=== PATIENT | female | born 1960 | race Caucasian/White ===

== ENCOUNTER 2019-12-13 13:38 | Emergency (ER) | payer OTHER, SELFPAY ==
[2019-12-13 13:52] VITALS: BP 142/88; PULSE 73; RESP 20; TEMP 36.6; O2SAT 100
--- NOTE | 2019-12-13 14:09 | ED.DENTAL ---
HPI - Dental/Oral General Chief complaint: Dental/Oral Stated complaint: tooth fracture Time Seen by Provider: 12/13/19 13:51 Source: patient and RN notes reviewed Mode of arrival: ambulatory Limitations: no limitations History of Present Illness HPI Narrative: Patient presents today planing of mild pain to the right lower gumline. States her crown fell off yesterday. She has an appointment with a dentist in 3 days. Reports Tylenol and ibuprofen are providing some relief of symptoms. Denies shortness of breath, fever, difficulty swallowing. Affected tooth had a previous root canal and crown placed 20 years ago MD Complaint: tooth pain Related Data Home Medications Medication Instructions Recorded Confirmed apixaban [Eliquis] 5 mg PO BID 12/13/19 12/13/19 diltiazem HCl [Cardizem] 120 mg DAILY 12/13/19 12/13/19 metoprolol tartrate 12/13/19 Allergies Allergy/AdvReac Type Severity Reaction Status Date / Time Penicillins Allergy Mild Rash Verified 12/13/19 13:56 ciprofloxacin [From Cipro] Allergy Rash Verified 12/13/19 13:56 Review of Systems Review of Systems: Narrative: CONSTITUTIONAL: Denies body aches, fever, chills, or sweats. EYES: Denies visual changes, redness, or discharge. ENT: Denies rhinorrhea, congestion, sore throat, or otalgia. + Tooth pain CARDIOVASCULAR: Denies chest pain, palpitations, or edema. RESPIRATORY: Denies cough or dyspnea. GASTROINTESTINAL: Denies abdominal pain, nausea, vomiting, or diarrhea. GENITOURINARY: Denies dysuria or hematuria. SKIN: Denies rash, itching, or wounds. MUSCULOSKELETAL: Denies back pain, joint pain, or myalgia. NEUROLOGIC: Denies headache, numbness, tingling, or weakness. PSYCH: Denies depression or anxiety. [facility] Past Medical History Medical History (Updated 12/13/19 @ 14:43 by Nelida Lovett, OPERATING ROOM TECH, ) A-fib Graves disease Social History Social History Gender identity (if verbalized by the patient): Female Comments At time of signature, I have reviewed and agree with nursing past medical, surgical, social and family history unless otherwise noted. Please see nursing chart for further information. There is no relevant family history pertinent to the presenting complaint Exam Narrative: Exam Narrative: GENERAL: Well-appearing, well-nourished, and in no acute distress. HEAD: Normocephalic, atraumatic. EYES: EOMI. No redness or drainage. Conjunctivae normal. ENT: Mucous membranes pink and moist. Nares clear. No rhinorrhea. Throat normal. Uvula midline. [place] missing from tooth #29. [place] seems to be intact. Tooth underneath is intact with mild surrounding edema and erythema of the gumline. No obvious periapical abscess. No trismus or sublingual tenderness. NECK: Normal AROM. Supple. No lymphadenopathy. CHEST: No respiratory distress. EXTREMITIES: Normal range of motion. No edema. SKIN: Warm, dry, no rash. Capillary refill normal. Normal skin turgor. NEURO: No focal deficits. Alert and oriented x3. Gait steady. PSYCH: Normal affect. No signs of depression or anxiety. Course Vital Signs Vital signs: Vital Signs Temperature 97.8 F 12/13/19 13:52 Pulse Rate 73 12/13/19 13:52 Respiratory Rate 12/13/19 13:52 Blood Pressure 142/88 H 12/13/19 13:52 Pulse Oximetry 100 12/13/19 13:52 Temperature 97.8 F 12/13/19 13:52 Pulse Rate 73 12/13/19 13:52 Respiratory Rate 12/13/19 13:52 Blood Pressure 142/88 H 12/13/19 13:52 Pulse Oximetry 100 12/13/19 13:52 Reviewed. Pt has been instructed to follow up with her PCP regarding her elevated blood pressure today. MDM - Dental/Oral Differential Diagnosis Differential diagnosis: Likely gingival abscess, dental caries, toothache, dental abscess and fracture of tooth Critical Care Time Critical Care Time Critical Care Time: No Discharge Plan Discharge Clinical Impression: Infected dental caries Patient Disposition: Home, Self-Care Condition: Sta
== END 2019-12-13 14:27 | disposition home or self-care (01) ==
PROVIDERS: Emergency Provider Nurse Practitioner; PCP Nurse Practitioner Psychiatric/Mental Health
DX: K02.9 Dental caries, unspecified (principal); I48.91 Unspecified atrial fibrillation; E05.00 Thyrotoxicosis with diffuse goiter without thyrotoxic crisis or storm; E78.00 Pure hypercholesterolemia, unspecified; E03.9 Hypothyroidism, unspecified
CPT/HCPCS: 99203; G0463

== ENCOUNTER 2020-08-13 16:06 | Outpatient (CLI) | payer OTHER, SELFPAY ==
--- NOTE | ~2020-08-13 | US_ITS ---
EXAMINATION: US thyroid DATE: 08/13/2020 17:07 INDICATION: Graves' disease. TECHNIQUE: Multiple ultrasound images of the thyroid were obtained. COMPARISON: None. FINDINGS: The right thyroid lobe measures 6.4 x 2.6 x 2.1 cm. The left thyroid lobe measures 5.6 x 2.0 x 2.2 c m. The thyroid demonstrates heterogeneous echogenicity and increased vascularity. In the left thyroid lobe, there is a 11 mm solid, very hypoechoic, oytxa-qjrq-ebqq nodule with smooth margin without ech ogenic foci (TI-RADS TR4). IMPRESSION: 1. Heterogeneous, hypervascular thyroid, consistent Graves' disease. 2. 11 mm left thyroid nodule. By report, the patient has a history of benign biopsy. Reviewed, dictated and finalized at location A. IMPRESSION: 1. Heterogeneous, hypervascular thyroid, consistent Graves' disease. 2. 11 mm left thyroid nodule. By report, the patient has a history of benign bi opsy.
== END 2020-08-13 16:07 | disposition home or self-care (01) ==
LOC: ANHIMG 16:07
PROVIDERS: PCP Nurse Practitioner Psychiatric/Mental Health
DX: E05.00 Thyrotoxicosis with diffuse goiter without thyrotoxic crisis or storm (principal); E04.1 Nontoxic single thyroid nodule
CPT/HCPCS: 76536

== ENCOUNTER 2021-03-31 12:20 | Outpatient (CLI) | payer OTHER, SELFPAY ==
--- NOTE | ~2021-03-31 | US_ITS ---
EXAMINATION: US thyroid DATE: 03/31/2021 13:02 INDICATION: Nontoxic multinodular goiter. Graves' disease. TECHNIQUE: Multiple ultrasound images of the thyroid were obtained. COMPARISON: 08/23/2020 FINDINGS: The right thyroid lobe measures 5.7 x 1.8 x 2.0 cm. The left thyroid lobe measures 5.4 x 1.7 x 2.0 c m. Thyroid isthmus measures 6 mm in thickness. There is heterogeneous echogenicity with coarsened ech otexture and increased vascular flow on color Doppler throughout the thyroid consistent with given hi story of Graves' disease. No significant change in a 11 mm solid very hypoechoic wider than tall nodu le with smooth margins and without echogenic foci (TI-RADS 4, moderately suspicious , FNA if >=1.5 cm , annual followup is >=1 cm). IMPRESSION: 1. Heterogeneous hypervascular thyroid consistent with Graves' disease. 2. Unchanged 11 mm TI RADS 4 left thyroid nodule for which annual follow-up would be recommended. Reviewed, dictated and finalized at location . [employer] IMPRESSION: 1. Heterogeneous hypervascular thyroid consistent with Graves' disease. 2. Unchanged 11 mm TI RADS 4 left thyroid nodule for which annual follow-up wou ld be recommended.
== END 2021-03-31 12:21 | disposition home or self-care (01) ==
PROVIDERS: Visit Provider Internal Medicine Endocrinology, Diabetes & Metabolism
DX: E04.2 Nontoxic multinodular goiter (principal)
CPT/HCPCS: 76536

== ENCOUNTER 2021-04-05 07:40 | Outpatient (CLI) | payer OTHER, SELFPAY ==
--- NOTE | 2021-04-13 17:43 | WPDHOMESLEEP ---
Sleep Study - Home Unattended Date of Study: 04/05/21 Ordering Provider: Nelida Reyes, Interpreting Provider: Amirah Ledezma MD Home Sleep Study Type: Watch PAT Height: 1.65 m Weight: 108.409 kg Body Mass Index: 39.7 Neck Circumference (inches): 16.5 Corona: 15 Reason for Sleep Study Fatigue, tired all the time, excessive daytime sleepiness Sleep History Kalyani Hanna is a 60 year old female with 45 years of excessive daytime sleepiness and snoring. She is tired all the time. She does not awaken from sleep feeling short of breath or awaken at night with heartburn, belching or coughing. She constantly snores loudly. She constantly has trouble sleeping with a cold. She does not wake up gasping for breath at night. She does not have breathing problems at night observed by others. She does not sweat excessively at night or notice her heart pounding irregularly at night. She frequently falls asleep during the day and this constantly happens involuntarily. She rarely falls asleep driving. She does not have loss of muscle tone with strong emotion. She rarely has daytime difficulties due to excessive sleepiness. She frequently feels paralyzed on waking or falling asleep and frequently has vivid dreamlike scenes on awakening or falling asleep. She does not feel afraid to go to sleep. She occasionally has nightmares. She rarely remembers her dreams. She does not have racing thoughts. She occasionally feels sad, depressed and anxious. She occasionally has muscular tension. She rarely notices parts of her body jerking and she rarely kicks at night. She rarely has crawling and aching feelings in her legs. She does not have any kind of leg pain at night. She does not have morning jaw pain and does not grind her teeth during sleep. She occasionally is bothered by pain during the day. She is not awakened by pain at night. She occasionally wakes up feeling stiff in the morning. She does not wake up with sore achy muscles. She occasionally wakes up with pain in the neck and spine. She has headaches and fatigue. Normal bedtime is 10:00 p.m. and she typically wakes up once during the night for 15 minutes. She wakes the morning at 6:00 a.m.. Her weekend schedule is the same. She estimates getting 6-7 hours of sleep at night. She takes naps in the afternoon or evening. A short nap is not refreshing. She feels better in the evening compared to the morning. Habits: Never smoked tobacco. She drinks caffeine daily. Rare alcohol. No recreational drugs. [facility] Past Medical History Medical History (Updated 04/13/21 @ 17:56 by Amirah Ledezma MD) A-fib Anxiety and depression Diabetes Graves disease Hypertension Kidney stones Seasonal allergies Surgical History Surgical History (Updated 04/13/21 @ 17:50 by Amirah Ledezma MD) History of tonsillectomy History of total hysterectomy Status post rhinoplasty Social History Social History (Updated 04/13/21 @ 17:50 by Amirah Ledezma MD) Smoking status: Never smoker Living arrangements: with family Occupation/Education: occupation Additional occupation/education comments: RN Gender identity (if verbalized by the patient): Female Medications Home Medications Medication Instructions Recorded Confirmed Type apixaban [Eliquis] 5 mg PO BID 12/13/19 12/13/19 History clindamycin HCl 300 mg PO Q6H 10 Days #40 cap 12/13/19 Rx diltiazem HCl [Cardizem] 120 mg DAILY 12/13/19 12/13/19 History metoprolol tartrate 12/13/19 History Sleep Procedure The sleep study was completed using LaunchCytePAT a technically adequate device with seven channels: peripheral arterial tone, actigraphy, body position, snore, respiratory movement, pulse oximetry, sleep staging, and heart rate. Prior to using the device, the patient received verbal and written instructions for its application and was provided with the help desk phone number for additional telephonic instruction with
[2021-04-13 18:00] VITALS: BMI 39.7
== END 2021-04-06 09:59 | disposition home or self-care (01) ==
LOC: ANHCSM 07:40
PROVIDERS: Visit Provider Internal Medicine Endocrinology, Diabetes & Metabolism
DX: G47.30 Sleep apnea, unspecified (principal); G47.33 Obstructive sleep apnea (adult) (pediatric)
CPT/HCPCS: 95800

== ENCOUNTER 2021-04-18 16:40 | Emergency (ER) | payer OTHER, SELFPAY ==
--- NOTE | ~2021-04-18 | XR_ITS ---
EXAMINATION: XR chest 2V DATE: 04/18/2021 18:17 INDICATION: Cough and shortness of breath, COVID 19 positive TECHNIQUE: PA and lateral views of the chest are obtained. COMPARISON: 10/15/2019 FINDINGS: There is unchanged mild atelectasis of the lower lobes. No acute airspace opacities are benny ntified. There is no pleural effusion or pneumothorax. The cardiomediastinal silhouette is normal. Th ere is mild thoracic spondylosis. IMPRESSION: 1. No acute cardiopulmonary abnormality. Reviewed, dictated and finalized at location F. R WORKER
[2021-04-18 17:01] VITALS: BP 134/78; PULSE 59; RESP 16; TEMP 36.8; O2SAT 100
--- NOTE | 2021-04-18 18:14 | ED.URI ---
HPI - URI/Sore Throat General Chief Complaint: Upper Respiratory Infection Stated Complaint: cough/ear bleeding Source: patient Mode of arrival: ambulatory Limitations: no limitations History of Present Illness HPI Narrative: 60 y/o female presented for c/o right ear pain and chest tightness with coughing. She tested positive for covid last week and has remained quarantined. Sob with exertion, denies wheezing fever or chills. Endorses hx cerumen impaction, has been using peroxide and using otoscope with camera for evaluation. Notes yesterday reddened 'ulcer' appearing area that increased in size today. Endorses mild pain to the ear, denies drainage or decreased hearing. Related Data Home Medications Medication Instructions Recorded Confirmed apixaban [Eliquis] 5 mg PO BID 12/13/19 12/13/19 diltiazem HCl [Cardizem] 120 mg DAILY 12/13/19 12/13/19 metoprolol tartrate 12/13/19 Allergies Allergy/AdvReac Type Severity Reaction Status Date / Time Penicillins Allergy Mild Rash Verified 12/13/19 13:56 ciprofloxacin [From Cipro] Allergy Rash Verified 12/13/19 13:56 Review of Systems Review of Systems: CONSTITUTIONAL: Denies malaise, chills, sweats, fever. EYES: Denies visual changes, redness, or discharge. ENT: Reports rhinorrhea, congestion, sinus pain, otalgia and sore throat. CARDIOVASCULAR: Denies chest pain, palpitations, or edema. RESPIRATORY: Reports cough, post nasal drainage. Denies dyspnea. GASTROINTESTINAL: Denies abdominal pain, nausea, vomiting, diarrhea SKIN: Denies rash or itching. MUSCULOSKELETAL: Denies myalgia. NEUROLOGIC: Denies headache. [facility] Past Medical History Medical History A-fib Anxiety and depression Diabetes Graves disease Hypertension Kidney stones Seasonal allergies Surgical History Surgical History History of tonsillectomy History of total hysterectomy Status post rhinoplasty Social History Social History Smoking status: Never smoker Additional occupation/education comments: RN Gender identity (if verbalized by the patient): Female Comments At time of signature, I have reviewed and agree with nursing past medical, surgical, social and family history unless otherwise noted. Please see nursing chart for further information. There is no relevant family history pertinent to the presenting complaint Exam Narrative: GENERAL: Ill-appearing, no acute distress. HEAD: Normocephalic EYES: PERRLA, conjunctivae clear ENT: Mucous membranes moist. bilat TM pearly bal with dull light reflex; no tragal tenderness. Right canal with erythema and white material medially. Oropharynx erythematous without lesions. NECK: Supple. No lymphadenopathy CHEST: Clear to auscultation, breath sounds equal. No wheezing, rhonchi, rales, or stridor. No respiratory distress, speaks in full sentences. HEART: Regular rate and rhythm. No murmur heard. SKIN: Warm, dry, no rash. NEURO: Alert and oriented x3. PSYCH: Normal mood and affect Course Course Emergency Course: Patient is aware of diagnosis, understands and agrees to treatment plan. Anticipatory guidance given. Patient agrees to follow-up as directed and is aware of reasons to seek care at the emergency department. Portions of this record may have been created with voice recognition software Level of Care: Express Care Visit Vital Signs Vital signs: Vital Signs Temperature 98.3 F 04/18/21 17:01 Pulse Rate 59 L 04/18/21 17:01 Respiratory Rate 16 04/18/21 17:01 Blood Pressure 134/78 04/18/21 17:01 Pulse Oximetry 100 04/18/21 17:01 Temperature 98.3 F 04/18/21 17:01 Pulse Rate 59 L 04/18/21 17:01 Respiratory Rate 16 04/18/21 17:01 Blood Pressure 134/78 04/18/21 17:01 Pulse Oximetry 100 04/18/21 17:01 reviewed MDM - URI/Sore Throat Diff
== END 2021-04-18 18:35 | disposition home or self-care (01) ==
PROVIDERS: Emergency Provider Nurse Practitioner Family
DX: H92.01 Otalgia, right ear (principal); M94.0 Chondrocostal junction syndrome [Tietze]; I48.91 Unspecified atrial fibrillation; E11.9 Type 2 diabetes mellitus without complications; I10 Essential (primary) hypertension; E05.00 Thyrotoxicosis with diffuse goiter without thyrotoxic crisis or storm; Z90.710 Acquired absence of both cervix and uterus; F41.9 Anxiety disorder, unspecified; F32.9 Major depressive disorder, single episode, unspecified
CPT/HCPCS: 71046; 99213; G0463

== ENCOUNTER 2021-07-11 15:21 | Outpatient (CLI) | payer OTHER, SELFPAY ==
[2021-07-11 15:55] LABS: Cholesterol 236 mg/dL (0-200); HDL Direct 40 mg/dL; Triglycerides 233 mg/dL (<150)
[2021-07-11 16:05] LABS: LDL Cholesterol Direct 150 mg/dL
[2021-07-11 16:10] LABS: Hemoglobin A1C 5.4 % (<5.7)
[2021-07-11 17:09] LABS: Folic Acid > 20.0 ng/mL (2.76->20)
[2021-07-13 03:34] LABS: Insulin Level Total 9.5 uIU/mL (<=19.6); Thyroid Peroxidase Antibodies 11 IU/mL (<9)
[2021-07-14 06:06] LABS: Triiodothyronine T3 Free 3.2 pg/mL (2.3-4.2)
== END 2021-07-11 15:22 | disposition home or self-care (01) ==
LOC: ANHLAB 15:24
PROVIDERS: Visit Provider Internal Medicine Endocrinology, Diabetes & Metabolism
DX: E06.3 Autoimmune thyroiditis (principal); R73.01 Impaired fasting glucose
CPT/HCPCS: 36415; 80061; 82607; 82746; 83036; 83525; 84439; 84443; 84481; 86376

== ENCOUNTER 2021-08-18 15:54 | Emergency (ER) | payer OTHER, SELFPAY ==
--- NOTE | ~2021-08-18 | CT_ITS ---
EXAMINATION: CT soft tissue neck w con DATE: 08/18/2021 18:53 INDICATION: Left neck swelling and pain. TECHNIQUE: Computed tomography (CT) of the neck was performed with 75 mL Omnipaque 300 intravenous co ntrast. Automated exposure control and iterative reconstruction technique were employed. The dose-sae gth product was 595.87 mGy-cm. COMPARISON: Thyroid ultrasound 03/31/2021 FINDINGS: There is plaque in the proximal internal carotid arteries with less than 50% stenosis relat ion to normal distal artery lumen diameters. There is a 14 x 17 mm left high internal jugular chain l ymph node with surrounding fat stranding. There is moderate cervical spondylosis. IMPRESSION: 1. Mildly enlarged high left internal jugular chain lymph node, which may be reactive. Fat stranding in this area suggests inflammation. Reviewed, dictated and finalized at location A. IMPRESSION: 1. Mildly enlarged high left internal jugular chain lymph node, which may be re active. Fat stranding in this area suggests inflammation.
[2021-08-18 15:55] VITALS: BP 140/77; PULSE 96; RESP 17; TEMP 36.6; O2SAT 100
--- NOTE | 2021-08-18 16:56 | ED.GENADULT ---
HPI - General Adult General Chief complaint: Unspecified Stated complaint: swollen neck Time Seen by Provider: 08/18/21 16:56 Source: patient Mode of arrival: ambulatory Limitations: no limitations History of Present Illness HPI narrative: Patient is a 60-year-old female who presents the ED with report of left-sided neck swelling. Patient reports a history of Graves' disease, thyroiditis in the past. She has a known left thyroid nodule that was last recorded to be 11 mm in March via ultrasound. She has been on several different thyroid medications in the past but is now currently only on an ioeb-xok-jnbhgef thyroid supplement. She had lab work done at the beginning of July at which point her TSH was 2.06. She does see a portable grinding machine operator, Ny Reyes in [place]. Over the past 7 days, she has had swelling in her left sided neck, below her left-sided jaw. She states the swelling began directly under her jawline has since radiated to her neck. She denies any difficulty breathing or swallowing but does states she can feel the swelling more when she lays flat, so she has been sleeping in a recliner for the past couple nights. She contacted her primary care doctor and portable grinding machine operator about this, both of whom told her to come to the ED for imaging. Patient notes the swelling is tender to the touch. She also reports having mild congestion and sinus drainage today. Denies any fever, chills, cough, nausea, vomiting, sore throat, ear pain, dental pain. Related Data Allergies Allergy/AdvReac Type Severity Reaction Status Date / Time ciprofloxacin [From Cipro] Allergy Itching Verified 08/18/21 15:58 Penicillins Allergy Rash Verified 08/18/21 15:58 Gigzifx-KGJ-FyW Reductase Allergy Muscle Pain Verified 08/18/21 15:58 Inhibitor Review of Systems Review of Systems: CONSTITUTIONAL: Denies fever, chills. ENT: Reports congestion, sinus drainage. Denies rhinorrhea, sore throat, otalgia, dysphagia, dentalgia. CARDIOVASCULAR: Denies chest pain. RESPIRATORY: Denies cough or dyspnea. GASTROINTESTINAL: Denies nausea, vomiting. SKIN: Reports tender swelling to left-sided neck and jaw. Denies rash or itching. All systems reviewed & are unremarkable except as noted in HPI and below PMFSH Past Medical History Medical History (Updated 08/19/21 @ 00:00 by Background Daemon) Anxiety Depression Graves disease History of thyroiditis Hypercholesterolemia Hypertension Multinodular goiter (nontoxic) Surgical History Surgical History (Updated 08/18/21 @ 17:36 by Ny Reynoso PA-C) History of facial surgery History of hysterectomy History of thyroid surgery Social History Social History (Updated 08/18/21 @ 17:36 by Ny Reynoso PA-C) Smoking status: Never smoker Exam Narrative: GENERAL: Well appearing, well-nourished, non-toxic, in no acute distress. HEAD: Normocephalic, atraumatic. NOSE: Normal, no drainage EARS: TMS clear, with good light reflex. No erythema or bulging bilaterally. THROAT: Pharynx clear, no exudate or erythema. MMs moist. NECK: Supple. L sided submandibular swelling, extending down anterior cervical region, tender to palpation. RESPIRATORY: Airway patent, respirations nonlabored. Clear to auscultation bilaterally, no rales, rhonchi, wheezing. CARDIOVASCULAR: Regular rate and rhythm without murmurs, rubs, or gallops. Radial pulses 2+ and equal bilaterally. MUSCULOSKELETAL: Moves all extremities. Strength/ROM intact without gross deformities. SKIN: Warm, dry, normal color. No rashes. NEURO: A&O X3. Speech clear. Cranial nerves II-XII grossly intact. Steady gait. No ataxic movements. PSYCHIATRIC: Appropriate mood and affect. Normal interaction. Course Vital Signs Vital signs: Vital Signs Temperature 97.8 F 08/18/21 15:55 Pulse Rate 96 08/18/21 15:55 Respiratory Rate 17 08/18/21 15:55 Blood Pressure 140/77 08/18/21 15:55 Pulse Oximetry 100 08/18/21 15:55 Temperature 97.8 F 08/18
[2021-08-18 17:42] LABS: Basophils Absolute Auto 0.1 K/mm3 (0.0-0.1); Basophils Percent Auto 0.7 % (0.2-1.2); Eosinophils Absolute Auto 0.2 K/mm3 (0-0.3); Eosinophils Percent Auto 1.6 % (0-4.4); Hematocrit 36.8 % (37.0-47.0); Hemoglobin 12.2 g/dL (12.0-15.0); Immature Granulocyte Absolute 0.12 K/mm3 (0.00-0.031); Immature Granulocyte Percent A 1.3 % (0-0.5); Lymphocytes Absolute Auto 1.67 K/mm3 (0.9-3.2); Lymphocytes Percent Auto 18.3 % (18.3-44.2); Mean Corpuscular HGB Conc 33.2 g/dl (32-36); Mean Corpuscular Hemoglobin 31.7 pg (26-34); Mean Corpuscular Volume 95.6 fl (80-100); Mean Platelet Volume 8.8 fl (7.4-10.4); Monocytes Absolute Auto 0.9 K/mm3 (0.1-0.6); Monocytes Percent Auto 9.3 % (2.6-8.5); Neutrophils Absolute Auto 6.3 K/mm3 (1.3-6.7); Neutrophils Percent Auto 68.8 % (45.5-73.1); Platelet Count Result 278 k/mm3 (150-375); Red Blood Count 3.85 M/mm3 (4.2-5.4); Red Cell Distribution Width 12.2 % (11.5-14.5); White Blood Count 9.1 K/mm3 (4.5-10.0)
[2021-08-18 17:51] LABS: Alanine Aminotransferase 28 U/L (6-35); Albumin Level 4.5 g/dL (3.5-5.1); Alkaline Phosphatase 74 U/L (38-126); Anion Gap 8 mmol/L (8-16); Aspartate Amino Transferase 39 U/L (14-36); Bilirubin,Total 0.2 mg/dL (0.2-1.3); Blood Urea Nitrogen 12 mg/dL (7-17); Calcium 9.6 mg/dL (8.4-10.2); Carbon Dioxide 29 mmol/L (22-30); Chloride 102 mmol/L (98-107); Estimated CRCL calculation 79 ml/min; Estimated Glomerular Filt Rate > 60; Glucose 92 mg/dL (65-110); Potassium 3.6 mmol/L (3.4-5.0); Sodium 139 mmol/L (137-145)
[2021-08-18 19:02] LABS: Free T4 Free Thyroxine 1.54 ng/mL (0.78-2.19)
[2021-08-18] MEDS: KETOROLAC 30 MG/ML VIAL (*BKC) IV PUSH (19:33)
[2021-08-18 19:56] VITALS: RESP 16; O2SAT 98
== END 2021-08-18 19:56 | disposition home or self-care (01) ==
PROVIDERS: Physician Assistant; Emergency Provider Emergency Medicine
DX: R59.1 Generalized enlarged lymph nodes (principal); I10 Essential (primary) hypertension
CPT/HCPCS: 36415; 70491; 80053; 84439; 84443; 85025; 96374; 99284; J1885; Q9967

== ENCOUNTER 2021-11-29 01:12 | Day surgery (SDC) | payer OTHER, SELFPAY ==
[2021-11-11 11:54] VITALS: BMI 38.3
[2021-11-29 07:14] VITALS: BP 139/75; PULSE 83; RESP 18; TEMP 36.6; O2SAT 100; BMI 37.2
[2021-11-29 07:33] LABS: Glucose Point of Care 109 mg/dl (65-105)
[2021-11-29] MEDS: LACTATED RINGERS 1,000 ML 150 ML IV CONT (07:33)
--- NOTE | 2021-11-29 08:05 | WPDANESEPPF ---
Anes - Initial Pre Proc Eval Procedure: Operation Date: 11/29/21 08:45 Proposed Procedures p Screening Colonoscopy - Eric Mueller MD Date/Time: 11/29/21 08:05 Surgeon: Eric Mueller MD Pre Op Diagnosis: neoplasm screening Patient Data Age: 61 Gender: F Height: 1.65 m Weight: 101.5 kg Last Vital Signs Temp 97.8 F 11/29/21 07:14 Pulse 83 11/29/21 07:14 Resp 18 11/29/21 07:14 BP 139/75 11/29/21 07:14 Pulse Ox 100 11/29/21 07:14 O2 Del Method Room Air 11/29/21 07:14 Allergies Allergy/AdvReac Type Severity Reaction Status Date / Time ciprofloxacin [From Cipro] Allergy Itching Verified 11/29/21 07:17 Penicillins Allergy Rash Verified 11/29/21 07:17 Jqukpwn-[id number]-TcL Reductase Allergy Muscle Pain Verified 11/29/21 07:17 Inhibitor Home Medications Medication Instructions Recorded Confirmed Type apixaban 5 mg tablet (Eliquis) 5 mg PO BID 04/18/21 11/29/21 History bupropion HCl 200 mg tablet,12 hr 200 mg PO BID 04/18/21 11/29/21 History sustained-release diltiazem HCl 120 mg 120 mg PO DAILY 04/18/21 11/29/21 History capsule,extended release 24 hr, controlled (DILT-XR) fluoxetine 20 mg capsule 40 mg PO DAILY 04/18/21 11/29/21 History metformin 500 mg tablet,extended 500 mg PO BID 04/18/21 11/29/21 History release 24 hr metoprolol succinate 50 mg 50 mg PO DAILY 04/18/21 11/29/21 History tablet,extended release 24 hr Laboratory Tests 11/29/21 07:31 POC Capillary Glucose 109 mg/dl H mg/dl (65-105) Patient hx anesthesia problems: none Family hx anesthesia problems: none Results Review: All pre-operative results and documents have been reviewed as part of the pre-operative evaluation. [facility] Past Medical History Medical History (Updated 08/19/21 @ 15:08 by Shahla Dumont) A-fib Anxiety Anxiety and depression Depression Diabetes Graves disease Graves disease History of thyroiditis Hypercholesterolemia Hypertension Hypertension Kidney stones Multinodular goiter (nontoxic) Seasonal allergies Surgical History Surgical History (Updated 08/19/21 @ 15:08 by Shahla Dumont) History of facial surgery History of hysterectomy History of thyroid surgery History of tonsillectomy History of total hysterectomy Status post rhinoplasty Social History Social History (System 08/19/21 @ 15:08 by Shahla Dumont) Smoking status: Never smoker Alcohol intake: current Drinks per week: 1 Substance use type: does not use Living arrangements: with family Additional occupation/education comments: RN Gender identity (if verbalized by the patient): Female Spiritual care concerns: No Anes - Eval Final PreProcedure Day of Procedure 11/29/21 08:05 Patient weight: obese Heart: regular rate and rhythm Lungs: clear to auscultation Airway: Mallampati scale class II Neurological: alert and oriented Last oral intake: >/= 8 hours ASA classification: III Emergent: no Anesthetic plan: proceed Anesthesia type and monitoring: general GIVS and standard monitoring Results Review: All pre-operative results and documents have been reviewed as part of the pre-operative evaluation. Informed Consent: The patient's anesthetic plan and its attendant risks and benefits were discussed with the patient/family/POA. Questions were solicited and answers provided to the satisfaction of the patient/family/POA.
--- NOTE | 2021-11-29 08:13 | PM.HPGS ---
History of Present Illness History of Present Illness Consent: Risks, benefits, and alternatives have been discussed and questions answered. Patient agrees to proceed with procedure. Chief complaint: neoplasm screening Narrative: Kalyani Hanna is a 61 year old female here for screening colonoscopy, last one 2015 Review of Systems Constitutional: Constitutional: Denies headache(s) and Denies weakness Eyes: Eyes: Denies blurry vision ENT: Reports Normal hearing present, Denies headache(s) and Denies neck pain Cardiovascular: Cardiovascular: Denies chest pain and Denies dyspnea Respiratory: Respiratory: Denies dyspnea Gastrointestinal: Gastrointestinal: Reports no additional gastrointestinal complaints Genitourinary: Genitourinary: Denies dysuria Musculoskeletal: Musculoskeletal: Denies neck pain Integumentary/Breasts: Skin/Breast: Denies dry skin Neurologic: Reports Normal hearing present, Denies headache(s) and Denies weakness Psychiatric: Psychiatric: Denies anxiety Endocrine: Endocrine: Denies change in body appearance Hematologic/Lymphatic: Hematologic/Lymphatic: Denies easy bleeding Allergic/Immunologic: Allergic/Immunologic: Denies urticaria PMFSH Past Medical History Medical History (Updated 11/29/21 @ 08:14 by Eric Mueller MD) A-fib Anxiety Anxiety and depression Colon cancer screening Depression Diabetes Graves disease Graves disease History of thyroiditis Hypercholesterolemia Hypertension Hypertension Kidney stones Multinodular goiter (nontoxic) Seasonal allergies Surgical History Surgical History (Updated 08/19/21 @ 15:08 by Shahla Dumont) History of facial surgery History of hysterectomy History of thyroid surgery History of tonsillectomy History of total hysterectomy Status post rhinoplasty Social History Social History (System 08/19/21 @ 15:08 by Shahla Dumont) Smoking status: Never smoker Alcohol intake: current Drinks per week: 1 Substance use type: does not use Living arrangements: with family Additional occupation/education comments: RN Gender identity (if verbalized by the patient): Female Spiritual care concerns: No Meds Home Medications and Allergies Home Medications Medication Instructions Recorded Confirmed Type apixaban 5 mg tablet (Eliquis) 5 mg PO BID 04/18/21 11/29/21 History bupropion HCl 200 mg tablet,12 hr 200 mg PO BID 04/18/21 11/29/21 History sustained-release diltiazem HCl 120 mg 120 mg PO DAILY 04/18/21 11/29/21 History capsule,extended release 24 hr, controlled (DILT-XR) fluoxetine 20 mg capsule 40 mg PO DAILY 04/18/21 11/29/21 History metformin 500 mg tablet,extended 500 mg PO BID 04/18/21 11/29/21 History release 24 hr metoprolol succinate 50 mg 50 mg PO DAILY 04/18/21 11/29/21 History tablet,extended release 24 hr Allergies Allergy/AdvReac Type Severity Reaction Status Date / Time ciprofloxacin [From Cipro] Allergy Itching Verified 11/29/21 07:17 Penicillins Allergy Rash Verified 11/29/21 07:17 Wbhexiy-VCB-KjG Reductase Allergy Muscle Pain Verified 11/29/21 07:17 Inhibitor Vital Signs Vital Signs - 24 hr 11/29/21 07:14 Temperature 97.8 F Pulse Rate 83 Respiratory Rate 18 Blood Pressure 139/75 Pulse Oximetry 100 Oxygen Delivery Room Air Exam Const: General: comfortable and no acute distress HENMT: General nose exam: Normal nares present Eyes: General: appearance normal, both eyes and all related structures Neck: Neck: no JVD Resp: Auscultation: clear to auscultation bilaterally Cardio: Rate: regular rate Rhythm: regular rhythm GI: Inspection: non-distended GI Palp: Yes Soft to palpation Skin: General skin exam: normal color Neuro: General: gait normal Speech: normal speech Extrem: General: normal to inspection Psych: Mental Status: mental status grossly normal Assessment and Plan Assessment and plan (1) Colon cancer scr
[2021-11-29 08:30] VITALS: BP 122/70; PULSE 70; RESP 20; O2SAT 95
[2021-11-29 08:40] VITALS: BP 136/72; PULSE 72; RESP 26; O2SAT 97
[2021-11-29 08:50] VITALS: BP 139/85; PULSE 72; RESP 19; O2SAT 100
== END 2021-11-29 09:03 | disposition home or self-care (01) ==
PROVIDERS: PCP Family Medicine; Visit Provider Internal Medicine Gastroenterology
PROC: 0DJD8ZZ Inspection of Lower Intestinal Tract, Via Natural or Artificial Opening Endoscopic (ICD-10-PCS; CPT 45378; principal; 2021-11-29 08:45)
DX: Z12.11 Encounter for screening for malignant neoplasm of colon (principal); K57.30 Diverticulosis of large intestine without perforation or abscess without bleeding; K64.8 Other hemorrhoids; F41.9 Anxiety disorder, unspecified; I48.91 Unspecified atrial fibrillation; F32.A Depression, unspecified; E05.00 Thyrotoxicosis with diffuse goiter without thyrotoxic crisis or storm; E06.9 Thyroiditis, unspecified; E78.00 Pure hypercholesterolemia, unspecified; E04.2 Nontoxic multinodular goiter; I10 Essential (primary) hypertension; Z79.01 Long term (current) use of anticoagulants; Z79.84 Long term (current) use of oral hypoglycemic drugs; E66.9 Obesity, unspecified; Z68.37 Body mass index [BMI] 37.0-37.9, adult
CPT/HCPCS: 45378; 82948; J2704; J7120

== ENCOUNTER 2021-12-14 10:25 | Emergency (ER) | payer OTHER, SELFPAY ==
[2021-12-14 10:34] VITALS: BP 136/66; PULSE 77; RESP 16; TEMP 36.9; O2SAT 99
--- NOTE | 2021-12-14 11:03 | ED.WOUNDLAC ---
HPI - Wound/Laceration General Chief Complaint: Wound/Laceration Stated Complaint: non healing wound Time Seen by Provider: 12/14/21 10:45 Source: patient, RN notes reviewed and old records reviewed Mode of arrival: ambulatory Limitations: no limitations History of Present Illness HPI narrative: 61-year-old female presents to the [facility] with a nonhealing wound to the left hip that is, large than it was, red, warm to touch. Patient reports that she slept on a couch woke up with 3 small blisters to the left leg 1 lateral left hip 2 left thigh. Treating with warm soapy water and apply Neosporin. 1 to the left hip is now red, fluctuant and hot to touch. Related Data Home Medications Medication Instructions Recorded Confirmed apixaban 5 mg tablet (Eliquis) 5 mg PO BID 04/18/21 11/29/21 bupropion HCl 200 mg tablet,12 hr 200 mg PO BID 04/18/21 11/29/21 sustained-release diltiazem HCl 120 mg 120 mg PO DAILY 04/18/21 11/29/21 capsule,extended release 24 hr, controlled (DILT-XR) fluoxetine 20 mg capsule 40 mg PO DAILY 04/18/21 11/29/21 metformin 500 mg tablet,extended 500 mg PO BID 04/18/21 11/29/21 release 24 hr metoprolol succinate 50 mg 50 mg PO DAILY 04/18/21 11/29/21 tablet,extended release 24 hr Allergies Allergy/AdvReac Type Severity Reaction Status Date / Time ciprofloxacin [From Cipro] Allergy Itching Verified 12/14/21 10:33 Penicillins Allergy Rash Verified 12/14/21 10:33 Vaentva-WOH-BvK Reductase Allergy Muscle Pain Verified 12/14/21 10:33 Inhibitor Review of Systems Review of Systems: All systems reviewed & are unremarkable except as noted in HPI and below Constitutional: Constitutional: Reports no additional constitutional complaints, Denies chills and Denies fever(s) Eyes: Eyes: Reports no additional eye complaints ENT: Reports system reviewed and no additional complaints, except as documented Cardiovascular: Cardiovascular: Reports no additional cardiovascular complaints Respiratory: Respiratory: Reports no additional respiratory complaints Gastrointestinal: Gastrointestinal: Reports no additional gastrointestinal complaints Musculoskeletal: Musculoskeletal: Reports no additional musculoskeletal complaints Integumentary/Breasts: Skin/Breast: Reports as per HPI and Reports erythema (Left hip) Neurologic: Reports system reviewed and no additional complaints, except as documented Psychiatric: Psychiatric: Reports no additional psychiatric complaints Allergic/Immunologic: Allergic/Immunologic: Reports no additional allergic/immunologic complaints [facility] Past Medical History Medical History A-fib Anxiety Anxiety and depression Colon cancer screening Depression Diabetes Graves disease Graves disease History of thyroiditis Hypercholesterolemia Hypertension Hypertension Kidney stones Multinodular goiter (nontoxic) Seasonal allergies Surgical History Surgical History History of facial surgery History of hysterectomy History of thyroid surgery History of tonsillectomy History of total hysterectomy Status post rhinoplasty Social History Social History Smoking status: Never smoker Alcohol intake: current Drinks per week: 1 Substance use type: does not use Additional occupation/education comments: RN Gender identity (if verbalized by the patient): Female Spiritual care concerns: No Comments At the time of my signature, I reviewed and agree with the nursing past medical, surgical, social, and family history. There is no relevant family history pertinent to the patient complaint. Exam Const: General: healthy appearing, no acute distress and alert Nutritional Appearance: well nourished Orientation/consciousness: patient oriented x3 Limitations: no limitations HENMT: Head: normal to inspe
== END 2021-12-14 11:13 | disposition home or self-care (01) ==
PROVIDERS: Emergency Provider Nurse Practitioner
DX: L02.416 Cutaneous abscess of left lower limb (principal); I48.91 Unspecified atrial fibrillation; E11.9 Type 2 diabetes mellitus without complications; E05.00 Thyrotoxicosis with diffuse goiter without thyrotoxic crisis or storm; E78.00 Pure hypercholesterolemia, unspecified; I10 Essential (primary) hypertension; E04.2 Nontoxic multinodular goiter; F41.9 Anxiety disorder, unspecified; F32.A Depression, unspecified
CPT/HCPCS: 10060; 87070; 87075; 87147; 87181; 87186; 87205; 99213; G0463

== ENCOUNTER 2021-12-28 10:21 | Outpatient (CLI) | payer OTHER, SELFPAY ==
[2021-12-28 11:16] LABS: Alanine Aminotransferase 23 U/L (6-35); Albumin Level 4.6 g/dL (3.5-5.1); Alkaline Phosphatase 91 U/L (38-126); Anion Gap 9 mmol/L (8-16); Aspartate Amino Transferase 28 U/L (14-36); Bilirubin,Total 0.3 mg/dL (0.2-1.3); Blood Urea Nitrogen 18 mg/dL (7-17); Calcium 9.4 mg/dL (8.4-10.2); Carbon Dioxide 26 mmol/L (22-30); Chloride 103 mmol/L (98-107); Cholesterol 266 mg/dL (0-200); Estimated Glomerular Filt Rate 57; Glucose 112 mg/dL (65-110); HDL Direct 46 mg/dL; Potassium 5.2 mmol/L (3.4-5.0); Sodium 138 mmol/L (137-145); Triglycerides 157 mg/dL (<150)
[2021-12-28 11:23] LABS: Hemoglobin A1C 5.7 % (<5.7)
[2021-12-28 11:26] LABS: LDL Cholesterol Direct 180 mg/dL
[2021-12-28 11:59] LABS: Free T4 Free Thyroxine 1.21 ng/mL (0.78-2.19)
[2021-12-28 12:19] LABS: Folic Acid 8.9 ng/mL (2.76->20)
[2021-12-31 07:11] LABS: Triiodothyronine T3 Free 2.9 pg/mL (2.3-4.2)
[2022-01-01 04:26] LABS: Thyroid Peroxidase Antibodies 17 IU/mL (<9)
== END 2021-12-28 10:22 | disposition home or self-care (01) ==
LOC: ANHLAB 10:24
PROVIDERS: Visit Provider Nurse Practitioner
DX: E78.5 Hyperlipidemia, unspecified (principal); E06.3 Autoimmune thyroiditis
CPT/HCPCS: 36415; 80053; 80061; 82607; 82746; 83036; 83525; 84439; 84443; 84481; 86376

== ENCOUNTER 2022-02-06 19:33 | Emergency (ER) | payer OTHER, SELFPAY ==
--- NOTE | ~2022-02-06 | XR_ITS ---
EXAM: XR foot RT 2V DATE: 02/06/2022 19:47 HISTORY: dog bite rt dorsal metatarsals . COMPARISON: None available. FINDINGS: Normal mineralization. No fracture or dislocation. No lytic or blastic lesion. Scattered d egenerative changes. No erosion or periosteal change. Question of subcutaneous gas overlying the sarahy on of the distal fourth and fifth MCP joints may represent a skin wound from the history of dog bite. IMPRESSION: No acute osseous finding in the right foot. Reviewed, dictated and finalized at location K.
--- NOTE | 2022-02-06 19:35 | ED.WOUNDLAC ---
HPI - Wound/Laceration General Chief Complaint: Animal Bite Stated Complaint: Right Foot Bite Time Seen by Provider: 02/06/22 19:37 Source: patient and RN notes reviewed Mode of arrival: ambulatory Limitations: no limitations History of Present Illness HPI narrative: 61-year-old female presents to the [facility] with a dog bite to her right foot. Positive pedal pulse. Sensation intact. Bleeding is controlled. Avulsion of skin noted to the dorsal aspect right foot last Tdap 1 year ago Related Data Home Medications Medication Instructions Recorded Confirmed apixaban 5 mg tablet (Eliquis) 5 mg PO BID 04/18/21 02/06/22 bupropion HCl 200 mg tablet,12 hr 200 mg PO BID 04/18/21 02/06/22 sustained-release diltiazem HCl 120 mg 120 mg PO DAILY 04/18/21 02/06/22 capsule,extended release 24 hr, controlled (DILT-XR) fluoxetine 20 mg capsule 40 mg PO DAILY 04/18/21 02/06/22 metformin 500 mg tablet,extended 500 mg PO BID 04/18/21 02/06/22 release 24 hr metoprolol succinate 50 mg 50 mg PO DAILY 04/18/21 02/06/22 tablet,extended release 24 hr montelukast 10 mg tablet 10 mg PO DAILY 02/06/22 02/06/22 rosuvastatin 5 mg tablet 5 mg PO DAILY 02/06/22 02/06/22 valacyclovir 500 mg tablet 500 mg PO DAILY 02/06/22 02/06/22 Allergies Allergy/AdvReac Type Severity Reaction Status Date / Time ciprofloxacin [From Cipro] Allergy Itching Verified 02/06/22 19:36 Penicillins Allergy Rash Verified 02/06/22 19:36 Ryzezur-QQN-RvV Reductase Allergy Muscle Pain Verified 02/06/22 19:36 Inhibitor Review of Systems Review of Systems: All systems reviewed & are unremarkable except as noted in HPI and below Constitutional: Constitutional: Reports no additional constitutional complaints, Denies chills and Denies fever(s) Eyes: Eyes: Reports no additional eye complaints ENT: Reports system reviewed and no additional complaints, except as documented Cardiovascular: Cardiovascular: Reports no additional cardiovascular complaints Respiratory: Respiratory: Reports no additional respiratory complaints Gastrointestinal: Gastrointestinal: Reports no additional gastrointestinal complaints Musculoskeletal: Musculoskeletal: Reports no additional musculoskeletal complaints Integumentary/Breasts: Skin/Breast: Reports as per HPI and Reports wounds Neurologic: Reports system reviewed and no additional complaints, except as documented Psychiatric: Psychiatric: Reports no additional psychiatric complaints Allergic/Immunologic: Allergic/Immunologic: Reports no additional allergic/immunologic complaints PMFSH Past Medical History Medical History A-fib Anxiety Anxiety and depression Colon cancer screening Depression Diabetes Graves disease Graves disease History of thyroiditis Hypercholesterolemia Hypertension Hypertension Kidney stones Multinodular goiter (nontoxic) Seasonal allergies Surgical History Surgical History History of facial surgery History of hysterectomy History of thyroid surgery History of tonsillectomy History of total hysterectomy Status post rhinoplasty Social History Social History Smoking status: Never smoker Alcohol intake: current Drinks per week: 1 Substance use type: does not use Additional occupation/education comments: RN Gender identity (if verbalized by the patient): Female Spiritual care concerns: No Comments At the time of my signature, I reviewed and agree with the nursing past medical, surgical, social, and family history. There is no relevant family history pertinent to the patient complaint. Exam Const: General: healthy appearing, no acute distress, alert and well nourished Nutritional Appearance: well nourished Orientation/consciousness: patient oriented x3 Limitations: no limitations HENMT: Head: normal
[2022-02-06 19:48] VITALS: BP 91/69; PULSE 105; RESP 16; TEMP 36.6; O2SAT 99
== END 2022-02-06 20:25 | disposition home or self-care (01) ==
PROVIDERS: Emergency Provider Nurse Practitioner
DX: S91.351A Open bite, right foot, initial encounter (principal); I48.91 Unspecified atrial fibrillation; I10 Essential (primary) hypertension; Z79.02 Long term (current) use of antithrombotics/antiplatelets; W54.0XXA Bitten by dog, initial encounter
CPT/HCPCS: 12002; 73620; 99213; G0463

== ENCOUNTER 2022-12-06 16:07 | Emergency (ER) | payer OTHER, SELFPAY ==
[2022-12-06 16:16] VITALS: BP 142/67; PULSE 73; RESP 18; TEMP 36.3; O2SAT 97
--- NOTE | 2022-12-06 16:27 | ED.URI ---
HPI - URI/Sore Throat General Chief Complaint: Upper Respiratory Infection Stated Complaint: Cough Time Seen by Provider: 12/06/22 16:15 Source: patient Mode of arrival: ambulatory Limitations: no limitations History of Present Illness HPI Narrative: 62-year-old female presented for complaint of cough for about 2 days. Endorses sinus congestion and post nasal drainage. Cough is productive white sputum and endorses wheezing at night. She denies shortness of breath, nausea, vomiting, or fatigue. Denies diarrhea, fevers or chills since onset. Taking Mucinex and Zyrtec for symptoms. Denies sick contacts. Related Data Home Medications Medication Instructions Recorded Confirmed apixaban 5 mg tablet (Eliquis) 5 mg PO BID 04/18/21 12/06/22 bupropion HCl 200 mg tablet,12 hr 200 mg PO BID 04/18/21 12/06/22 sustained-release diltiazem HCl 120 mg 120 mg PO DAILY 04/18/21 12/06/22 capsule,extended release 24 hr, controlled (DILT-XR) fluoxetine 20 mg capsule 40 mg PO DAILY 04/18/21 12/06/22 metformin 500 mg tablet,extended 500 mg PO BID 04/18/21 12/06/22 release 24 hr metoprolol succinate 50 mg 50 mg PO DAILY 04/18/21 12/06/22 tablet,extended release 24 hr montelukast 10 mg tablet 10 mg PO DAILY 02/06/22 12/06/22 rosuvastatin 5 mg tablet 5 mg PO DAILY 02/06/22 12/06/22 valacyclovir 500 mg tablet 1,000 mg PO DAILY 02/06/22 12/06/22 Allergies Allergy/AdvReac Type Severity Reaction Status Date / Time Xhipyge-FXS-XrV Reductase AdvReac Intermediate Muscle Pain Verified 12/06/22 16:11 Inhibitor ciprofloxacin [From Cipro] AdvReac Mild Itching Verified 12/06/22 16:11 Penicillins AdvReac Mild Rash Verified 12/06/22 16:11 Review of Systems Review of Systems: CONSTITUTIONAL: Denies body aches, fever, chills, or sweats. EYES: Denies visual changes, redness, or discharge. ENT: Reports rhinorrhea, congestion, denies sore throat, or otalgia. CARDIOVASCULAR: Denies chest pain, palpitations, or edema. RESPIRATORY: Reports cough, denies sob, wheezing. GASTROINTESTINAL: Denies abdominal pain, nausea, vomiting, or diarrhea. GENITOURINARY: Denies dysuria or hematuria. SKIN: Denies rash, itching, or wounds. MUSCULOSKELETAL: Denies back pain, joint pain, or myalgia. NEUROLOGIC: Denies headache, numbness, tingling, or weakness. All systems reviewed & are unremarkable except as noted in HPI and below PMFSH Past Medical History Medical History A-fib Anxiety Anxiety and depression Colon cancer screening Depression Diabetes Graves disease Graves disease History of thyroiditis Hypercholesterolemia Hypertension Hypertension Kidney stones Multinodular goiter (nontoxic) Seasonal allergies Surgical History Surgical History History of facial surgery History of hysterectomy History of thyroid surgery History of tonsillectomy History of total hysterectomy Status post rhinoplasty Social History Social History Smoking status: Never smoker Alcohol intake: current Drinks per week: 1 Substance use type: does not use Living arrangements: with family Occupation/Education: occupation Additional occupation/education comments: RN Gender identity (if verbalized by the patient): Female Spiritual care concerns: No Comments At time of signature, I have reviewed and agree with nursing past medical, surgical, social and family history unless otherwise noted. Please see nursing chart for further information. There is no relevant family history pertinent to the presenting complaint Exam Narrative: GENERAL: Well-appearing, in no acute distress. EYES: EOMI. No redness or drainage. Conjunctivae normal. ENT: Mucous membranes pink and moist. No rhinorrhea. TMs normal bilaterally. Throat normal. Uvula midline. NECK: Normal AROM. Supple. C
== END 2022-12-06 16:29 | disposition home or self-care (01) ==
PROVIDERS: Emergency Provider Nurse Practitioner Family; PCP Family Medicine
DX: J06.9 Acute upper respiratory infection, unspecified (principal); I48.91 Unspecified atrial fibrillation; E11.9 Type 2 diabetes mellitus without complications; E05.00 Thyrotoxicosis with diffuse goiter without thyrotoxic crisis or storm; E78.00 Pure hypercholesterolemia, unspecified; I10 Essential (primary) hypertension; F41.9 Anxiety disorder, unspecified; F32.A Depression, unspecified
CPT/HCPCS: 99213; G0463

== ENCOUNTER 2024-02-06 09:32 | Emergency (ER) | payer OTHER, SELFPAY ==
--- NOTE | 2024-02-06 09:36 | ED_ITS ---
HPI - URI/Sore Throat General Chief Complaint: Upper Respiratory Infection Stated Complaint: SOB/Cough Time Seen by Provider: 02/06/24 09:36 Source: patient, RN notes reviewed and old records reviewed Mode of arrival: ambulatory Limitations: no limitations History of Present Illness HPI Narrative: 63-year-old female presents to the [facility] with complaints of cough, shortness of breath, fatigue, body aches that started approximately 3 weeks Has tried multiple bgfa-mqb-nuzhpjm products as well as an inhaler Onset (ago): week(s) (3) Treatments prior to arrival: cold medicine Related Data Home Medications Medication Instructions Recorded Confirmed apixaban 5 mg tablet (Eliquis) 5 mg PO BID 04/18/21 12/06/22 diltiazem HCl 120 mg 120 mg PO DAILY 04/18/21 02/06/24 capsule,extended release 24 hr, controlled (DILT-XR) fluoxetine 20 mg capsule 40 mg PO DAILY 04/18/21 02/06/24 metoprolol succinate 50 mg 50 mg PO DAILY 04/18/21 02/06/24 tablet,extended release 24 hr valacyclovir 500 mg tablet 1,000 mg PO DAILY 02/06/22 02/06/24 Allergies Allergy/AdvReac Type Severity Reaction Status Date / Time Ocgkylo-DXW-IjE Reductase AdvReac Intermediate Muscle Pain Verified 02/06/24 09:47 Inhibitor ciprofloxacin [From Cipro] AdvReac Mild Itching Verified 02/06/24 09:47 Penicillins AdvReac Mild Rash Verified 02/06/24 09:47 Review of Systems Review of Systems: All systems reviewed & are unremarkable except as noted in HPI and below Constitutional: Constitutional: Reports as per HPI, Reports body ache(s) and Reports fatigue ENT: Reports as per HPI Cardiovascular: Cardiovascular: Reports no additional cardiovascular co mplaints, Denies chest pain and Denies dyspnea Respiratory: Respiratory: Reports as per HPI, Reports chest congestion, Reports cough, Reports dyspnea and Reports wheezing Gastrointestinal: Gastrointestinal: Reports no additional gastrointestinal complaints, Denies abdominal pain, Denies nausea and Denies vomiting Musculoskeletal: Musculoskeletal: Reports no additional musculoskeletal complaints Integumentary/Breasts: Skin/Breast: Reports system reviewed and no additional complaints, except as docu PMFSH Past Medical History Medical History A-fib Anxiety Anxiety and depression Colon cancer screening Depression Diabetes Graves disease Graves disease History of thyroiditis Hypercholesterolemia Hypertension Hypertension Kidney stones Multinodular goiter (nontoxic) Seasonal allergies Surgical History Surgical History History of facial surgery History of hysterectomy History of thyroid surgery History of tonsillectomy History of total hysterectomy Status post rhinoplasty Social History Social History Smoking status: Never smoker Alcohol intake: current Drinks per week: 1 Substance use type: does not use Do You Feel Safe in your Home?: Yes Lack of Transportation: No Lack of Food: Never True Current Housing: I Have Housing Concerned About Future Housing: No Difficulty Paying Gas/Electric Bills: No Difficulty Paying for Meds: No Currently Unemployed: No Difficulty w/ Childcare or Family Care: No Living arrangements: with family Occupation/Education: occupation Additional occupation/education comments: RN Gender identity (if verbalized by the patient): Female Spiritual care concerns: No Comments At the time of my signature, I reviewed and agree with the nursing past medical, surgical, social, and family history. There is no relevant family history pertinent to the patient complaint. Exam Const: General: cooperative, healthy appearing, comfortable, no acute distress, well developed, alert and well nourished Nutritional Appearance: well nourished Orientation/consciousness: patient oriented x3 Limitations: no limitations HENMT: Head: normal to inspection Ears: hearing grossly normal bilaterally, external ears normal, TM's normal bilaterally, EAC's normal, mastoids normal and no periauricular adenopathy Face/Nose/Sinus: Normal external nose present, normal facial exam and face symmetric Face and sinus: normal facial exam and face symmetric Mouth: Yes Normal oral and palatal mucosa present, Yes lip normal and Yes tongue normal Throat: uvula midline, tonsils absent and no uvular edema Eyes: General: appearance normal, both eyes and all related structures Alignment and Position: alignment normal Periorbital: periorbital findings normal Neck: Neck: normal visual inspection, full ROM, no lymphadenopathy and no meningeal signs Chest: Chest palpation & inspection: normal inspection of the chest Resp: Effort & Inspection: normal respiratory effort and able to speak in complete sentences Auscultation: clear to auscultation bilaterally, no crackles, no rales, no rhonchi, no wheezes and diminished lung sounds bilateral in the lower lung plaza Cardio: Rate: regular rate Skin: General skin exam: normal color and no rashes or lesions noted Lesions: no lesions Rashes: no rashes Wounds: no wounds Neuro: General: patient oriented x3, gait normal, tone normal, moves all extremities and no meningeal signs Cognition (Neuro): normal cognition Speech: normal speech Gait exam (Neuro): Normal gait present Extrem: General: normal to inspection, full ROM, capillary refill normal and normal gait Psych: Appearance: grossly normal and well kempt Mental Status: mental status grossly normal Speech and movement: Normal speech and movement present and Clear speech present Affect: normal affect Attitude: cooperative Course Course Level of Care: Express Care Visit Vital Signs Vital signs: Vital Signs Temperature 99.1 F 02/06/24 09:39 Pulse Rate 84 02/06/24 09:39 Respiratory Rate 18 02/06/24 09:39 Blood Pressure 149/78 H 02/06/24 09:39 Pulse Oximetry 99 02/06/24 09:39 Oxygen Delivery Room Air 02/06/24 09:39 Temperature 99.1 F 02/06/24 09:39 Pulse Rate 84 02/06/24 09:39 Respiratory Rate 18 02/06/24 09:39 Blood Pressure 149/78 H 02/06/24 09:39 Pulse Oximetry 99 02/06/24 09:39 Oxygen Delivery Room Air 02/06/24 09:39 Reviewed MDM - URI/Sore Throat MDM Narrative Medical decision making narrative: Patient sitting comfortably in exam room. Nontoxic, vitals stable. Patient in no acute distress Patient presents with 3 week history of upper respiratory symptoms Patient appropriate for outpatient treatment with close follow-up Discharge instructions reviewed with patient, as well as provided in writing per nursing staff. The instructions also include specific and strict return/GO TO THE ER as well as f/u information. All questions have been answered, and the patient deny any further questions with discharge and discharge plan. Some parts of this dictation were generated by voice recognition software and may contain typographical and/or grammatical inaccuracies. Differential Diagnosis Differential diagnosis: Likely upper respiratory infection, otitis media, sinusitis, viral infection, bronchitis and other (Pneumonia) Critical Care Time Critical Care Time Critical Care Time: No Discharge Plan Discharge Clinical Impression: Bronchitis Patient Disposition: Home, Self-Care Condition: Stable Instructions: Antibiotic Form, Acute Bronchitis (ED) Additional Instructions: -Alternate Tylenol and Motrin per package directions for fever or pain. -Antihistamine medication such as Benadryl at night and Zyrtec/Claritin/Carmen during the day can help improve symptoms. -doing daily nasal irrigations can help relieve pressure your sinuses. Things like a Neti pot -Use Flonase twice a day for 5 days then daily to help reduce the inflammation and dry up your sinuses. -You can also use Mucinex. Be sure to drink plenty of water with this medication at least 8 ounces with every dose and it is important to drink 8 to 10 glasses of water per day. Water is a natural decongestant -Eat and drink things that are easy to swallow, like tea or soup, or popsicles. -Oral rinses such as: Salt water gargles and/or may use topical anesthetic (eg. Chloraseptic spray) or lozenges to relieve dryness or throat pain). -Frequent hand washing or hand sales and merchandising associate is one of the best ways to prevent spread of infection. -Using a vaporizer or humidifier at night will also help thin secretions and help with coughing up phlegm. -Follow up with primary care provider in 3-5 days if condition is not improving - For new or worsening symptoms go directly to the nearest ER Patient Language: Turkmen Prescriptions: New (DME) Aerochamber MV Spacer See Rx Instructions .Route Qty: 1 0RF Rx Instructions: As directed albuterol sulfate 90 mcg/actuation HFA aerosol inhaler 2 puff inhalation QID PRN (Reason: shortness of breath or wheezing) Qty: 6.7 0RF doxycycline monohydrate 100 mg tablet 100 mg PO BID Qty: 20 0RF prednisone 20 mg tablet See Rx Instructions .Route .COMPLEX Qty: 18 0RF Rx Instructions: Take 60 mg daily for 3 days, 40 mg daily for 3 days, 20 mg daily for 3 days No Action albuterol sulfate 90 mcg/actuation HFA aerosol inhaler 2 inh inhalation QID PRN (Reason: shortness of breath or wheezing) Qty: 8.5 0RF metoprolol succinate 50 mg tablet extended release 24 hr 50 mg PO DAILY diltiazem HCl [DILT-XR] 120 mg capsule,ext.rel 24h degradable 120 mg PO DAILY fluoxetine 20 mg capsule 40 mg PO DAILY Eliquis 5 mg tablet 5 mg PO BID valacyclovir 500 mg tablet 1,000 mg PO DAILY Follow-up/Referrals: Adilson,MD Mimi [Primary Care Provider] - 2 Weeks ([facility] follow up) Stand Alone Forms: Work/School Release IP Time of Disposition: 09:49
[2024-02-06 09:39] VITALS: BP 149/78; PULSE 84; RESP 18; TEMP 37.3; O2SAT 99
== END 2024-02-06 09:53 | disposition home or self-care (01) ==
PROVIDERS: Emergency Provider Nurse Practitioner; PCP Family Medicine
DX: J40 Bronchitis, not specified as acute or chronic (principal); I48.91 Unspecified atrial fibrillation; E11.9 Type 2 diabetes mellitus without complications; E05.00 Thyrotoxicosis with diffuse goiter without thyrotoxic crisis or storm; E78.00 Pure hypercholesterolemia, unspecified; I10 Essential (primary) hypertension; F41.9 Anxiety disorder, unspecified; F32.A Depression, unspecified; Z79.01 Long term (current) use of anticoagulants
CPT/HCPCS: 99213; G0463

== ENCOUNTER → 2024-04-27 16:23 | Outpatient (CLI) | payer OTHER, SELFPAY ==
--- NOTE | ~2024-04-27 | XR_ITS ---
EXAM: [id number] DATE: 04/27/2024 16:34 HISTORY: M25.569 - Pain in unspecified knee . COMPARISON: None available. FINDINGS: Normal mineralization. No fracture or dislocation. No lytic or blastic lesion. Mild medial joint space narrowing and tricompartmental osteophytosis. Severe quadriceps and patellar tendon enth esopathy. No erosion or periosteal change. Soft tissues within normal limits. IMPRESSION: No acute osseous finding in the left knee. Mild tricompartmental osteoarthritis. Severe q uadriceps and patellar tendon enthesopathy. Reviewed, dictated and finalized at location K. ACE CLEANER IMPRESSION: No acute osseous finding in the left knee. Mild tricompartmental os teoarthritis. Severe quadriceps and patellar tendon enthesopathy.
== END ==
LOC: EXPCRAD 16:26
PROVIDERS: PCP Nurse Practitioner Family; Visit Provider Nurse Practitioner Family
DX: M17.12 Unilateral primary osteoarthritis, left knee (principal); M77.8 Other enthesopathies, not elsewhere classified; W19.XXXA Unspecified fall, initial encounter
CPT/HCPCS: 73560

== ENCOUNTER 2024-08-14 08:29 | Outpatient (CLI) | payer OTHER, SELFPAY ==
--- OUTSIDE RECORDS SUMMARY | 2024-08-14 08:34 | XMS_ITS | Encounter Summary ---
Author Organization [facility] Address [address] [place] [address] Care Team Providers Care State Pilot Name Role Phone Xochilt Dillard PRODUCTION ASSEMBLER Primary Care Provider Unav ailable Levon Dalal MD Unavailable [phone] Jennifer Manzanares MD Unavailable Victorino Shahid MD Unavailable [phone] Mimi De Anda MD Unavailable [phone] Mimi De Anda MD Primary Care Provider [phone] Encounter Details Date Type Department Care Team (Late st Contact Info) Description 08/31/2019 [employer] Message Enc [facility] at [facility] [address] [place] [address] Jennifer Manzanares MD [facility] [address] [place], [place] [id number] Medication Questions Social History Tobacco Use Types Packs/Day Years Used Date Smoking Tobacco: Never Smokeless Tobacco: Never Alcohol Use Standard Drinks/Week Comments Yes 0 (1 standard drink = 0.6 oz pur e alcohol) rare AUDIT-C Answer Date Recorded Frequency of Alcohol Consumption Monthly or less 04/08/2018 Average Number of Drinks 1 or 2 018 Frequency of Binge Drinking Never 03/11 PHQ-2 Answer Date Recorded PHQ-2 Score 5 08/19/2018 Education Answer Date Recorded What is the highest level of school you have completed or the highest degree you have received? 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 No / Unsure 08/10/2019 8:54 AM CDT documented as of this encounter Functional Status * RETIRED Are you deaf or do you have serious difficulty hearing Answer Date of Assessment Author Status No 08/01/2018 1:28 PM CDT Activ e * RETIRED Are you blind or do you have serious difficulty seeing, even when wearing glasses? Answer Date of Assessment Author Status No 08/01/2018 1:28 PM CDT Activ e * Do you have serious difficulty walking or climbing stairs? Answer Date of Assessment Author Status No 08/01/2018 1:28 PM CDT Keaton Waldron RN Active * Do you have difficulty dressing or bathing? Answer Date of Assessment Author Status No 08/01/2018 1:28 PM CDT Keaton Waldron RN Active * Because of a physical, mental, or emotional condition, do you have difficulty doing errands alone such as visiting a doctor's office or shopping? Answer Date of Assessment Author Status No 08/01/2018 1:28 PM CDT Keaton Waldron RN Active documented as of this encounter Mental Status * Because of a physical, mental, or emotional condition, do you have serious difficulty concentrating, remembering, or making decisions? Answer Entry Date Author Status No 08/01/2018 1:28 PM CDT Keaton Waldron RN Active documented in this encounter Plan of Treatment Upcoming Encounters Date Type Department Care Team (Late st Contact Info) Description 08/25/2024 1:00 PM CDT Office Visit [facility] Family & Internal Medicine [address] [address] [place] [id number] [place], [place] [id number] documented as of this encounter Visit Diagnoses Not on filedocumented in this encounter Additional Health Concerns Infection Onset Date Last Indicated Resolved Time COVID-19 Rule Out 04/15/2021 04/15/2021 04/18/2021 2:12 PM POLY P[employer]ER AND [employer] SEALER COVID-19 Rule Out 04/18/2021 04/18/2021 04/18/2021 11:37 PM POLY P[employer]ER AND HEAT SEALER COVID-19 Confirmed 04/18/2021 04/18/2021 12:34 AM POLY PACKER AND HEAT SEALER Assessment Noted Time PHQ-9 Depression Total Score: 15 019 8:04 AM CDT documented as of this encounter Care Teams State Pilot Relationship Specialty Start Date End Date Xochilt Dillard NP PCP - General NURSE PRACTITIONER 04/08/18 03/30/21 [place] [id number] [place] [address] PCP - General FAMILY PRACTICE 03/31/21 Levon Dalal MD [facility]. [address] [place], [place] [id number] [employer] INTERVENTIONAL CARDIOLOGY 05/07/18 Jennifer Manzanares MD [facility]. [address] [place], [place] [id number] CLINICAL CARDIAC ELECTROPHYSIOLOGY 07/29/18 [place] [address] [facility] [address] [place] [address] ENDOCRINOLOGY 07/29/18 [place] [id number] [address] FAMILY PRACTICE 03/31/21 03/31/21 documented as of this encounter
--- OUTSIDE RECORDS SUMMARY | 2024-08-14 08:34 | XMS_ITS | CONTINUITY OF CARE DOCUMENT ---
Author Name trevor murray Address Unknown Organization [facility] Address [address] [place] [address] Phone [phone] Care Team Providers Care Regulatory Consultant Name Role Phone Pawan MAGALLANES, Andrew Bustamante Unavailable JOHN PAUL VASQUEZ NP Unavailable Maria Isabel JONES DO Unavailable [phone] PROBLEMS Condition Status Date Provider Notes Family History of Hyperlipidemia: active ? Sa sandra Villalta MD Family History of Hypertension: active ? Ayesha Villalta MD Family History of Hypertension: active ? Ayesha Villalta MD Family History of CVA or Stroke: active ? Eulalio Villalta MD Snoring active Andrew Villalta MD Atrial fib paroxysmal active Andrew roth MD Palpitations active Andrew Villalta MD Hyperthyroidism active ? Essence Naidu ENCOUNTERS Date Type Provider Location Encounter Diag nosis - In-person encounter Office Visit Andrew Villalta MD [facility] Hyperthyroidism - In-person encounter Office Visit Andrew Villalta MD [facility] - In-person encounter Office Visit Andrew Villalta MD [facility] Family History of Hyperlipidemia:Family History of Hypertension:Family History of Hypertension:Family History of CVA or Stroke:SnoringAtrial fib paroxysmalPalpitations VITAL SIGNS Date Observation Value Provider Body Mass Index (Ratio) 37.20 kg/m2 Frederick Naidu blood pressure, diastolic 66 mm[Hg] Ch astity Josefina blood pressure, systolic 112 mm[Hg] Trudy stijoselito Santanaue respiratory rate E&M 18 /min Wildit sudhakar Rocha pulse rate 75 /min Trudystity Josefina oxygen saturation, oximetry 97 % Trudystity Josefina weight E&M 210 [lb_av] Trudystity Josefina height E&M 63 [in_i] Trudystity Josefina Body Mass Index (Ratio) 36.49 kg/m2 Ayesha Villalta MD oxygen saturation, oximetry 97 % Ivis Payton blood pressure, diastolic 60 mm[Hg] Dewayne Payton blood pressure, systolic 118 mm[Hg] Dayanara genesiscarolann Payton respiratory rate E&M 16 /min Dayanaragenesiscarolann Payton pulse rate 53 /min Ivis bustamante weight E&M 206 [lb_av] Ivis Parikh n height E&M 63 [in_i] Dayanaragenesiscarolann Parikh n Body Mass Index (Ratio) 37.73 kg/m2 Ayesha Villalta MD blood pressure, cuff size regular Denver Loganby blood pressure, diastolic 70 mm[Hg] Denver Loganby blood pressure, systolic 118 mm[Hg] Denveri sudhakar Loganby oxygen saturation, oximetry 98 % Naomy Loganby respiratory rate E&M 17 /min Naomy Loganby pulse rate 99 /min Naomy Loganby blood pressure, resting Yes Jerrod yee Mitzi weight E&M 213 [lb_av] Naomy Loganby height E&M 63 [in_i] Naomy Loganby ALLERGIES Allergy Name Onset Date Reaction Criticality Status PCN Low Criticality active CIPRO Low Criticality active STATINS Low Criticality active HISTORY OF MEDICATION USE Medication Status Instructions Dates Provider Indications Com melvins LEWIS ALLERGY RELIEF 50 MCG/ACT NASAL SUSPENSION active two sprays each nostril twice daily 8 Angella Rocha FLUOXETINE HCL 20 MG ORAL TABLET active one tab daily 8 Ivis Payton METHIMAZOLE 10 MG ORAL TABLET (METHIMAZOLE) active 1 tabs daily 8 Trudyminerva Rocha ELIQUIS 5 MG ORAL TABLET active One tablet, twice daily. 7 Andrew Villalta MD METOPROLOL TARTRATE 25 MG ORAL TABLET active One & 1/2 tablets twice daily 8 Franchesca Delano RN to equal 37.5mg twice daily DAILY MULTIVITAMIN ORAL CAPSULE active take one tablet by mouth once daily 7 Naomy Cartagena CARTNICHOLAS XT 240 MG ORAL CAPSULE EXTENDED RELEASE 24 HOUR active take one tablet by mouth once daily 7 Naomy Cartagena SOCIAL HISTORY Date Observation Value Provider social history E&M S moking History: Curtis rubio has never smoked. Andrew Villalta MD social history reviewed E&M revi ewed - no changes required Andrew Villalta MD smoking status Never smoker Angella Chad carolann social history reviewed E&M revi ewed - no changes required Andrew Villalta MD social history E&M S moking History: Curtis rubio has never smoked. Andrew Villalta MD smoking status Never smoker Ivis Miranda son number of grandchildren Andrew Villalta MD social history E&M S moking History: Curtis rubio has never smoked. Andrew Villalta MD social history reviewed E&M revi ewed - no changes required Andrew Villalta MD smoking status Never smoker Naomy Cartagena FAMILY HISTORY Family Member Condition Maternal Grandmother Family History of C VA or Stroke: Father Family History of Co ronary Artery Disease: Father Family History of Hy pertension: Mother Family History of Co ronary Artery Disease: Mother Family History of Hy pertension: Mother Family History of Hy perlipidemia: INSURANCE PROVIDERS Payer name Policy type / Coverage type Leandro red republican ID [employer] [id number] ADVANCE DIRECTIVES Name Date DISCUSSED - NO DECISION MADE TREATMENT PLAN Date Name Performer Cardiology:Plan on s leep study in the fuuture. Inadequate test results on prior evaluations Seema Naidu Cardiology:Workup with endocrino logist Andrew Villalta MD Cardiology:SR today on EKG. Stable on medrx. Continue Eliquis H er updated medication list for this problem includes: Metoprolol Tartrate 25 Mg Oral Tablet (Metoprolol tartrate) ..... One and a half tablets, twice daily. 37.5mg twice daily Cartia Xt 240 Mg Oral Capsule Extended Release 24 Hour (Diltiazem hcl coated beads) ..... Take one tablet by mouth once daily Andrew Villalta MD Cardiology:SR Andrew Villalta MD Cardiology:Repeat PARK w/u. Gris Villalta MD Cardiology Andrew Villalta MD Cardiology:Still has PAF on ZIO. Will need to increase lopressor to 37.5mg BID. Interested in repeating sleep study since the first one was inadequate. Andrew Villalta MD Cardiology:sleep records management associate ea w/u has not been done O rders: 9 9214 MOD Complex (CPT-37613) C omplete Echo (CPT-04043) S TR - Nuclear (CPT-51125) S leep Study Home (CPT-53423) H olter Monitor 24 Hr (CPT-76495) Andrew Villalta MD Cardiology:on eliqui s for a/c n o recent cardiac w/u for afib wiwth ischemic w/u or assessment of la size or valve fxn m ay haver hyperactiver thyroid will need to see endo and get throyid testing H er updated medication list for this problem includes: Metoprolol Tartrate 25 Mg Oral Tabs (Metoprolol tartrate) ..... Twice daily Cartia Xt 240 Mg Oral [id number] (Diltiazem hcl coated beads) ..... Take one tablet by mouth once daily Orders: 9 9214 MOD Complex (CPT-73222) C omplete Echo (CPT-60458) S TR - Nuclear (CPT-57503) S leep Study Home (CPT-06325) H olter Monitor 24 Hr (CPT-35489) Andrew Villalta MD Date Name ZIO Holter Sleep Study Home Holter Monitor 24 Hr Sleep Study Home STR - Nuclear Complete Echo HISTORY OF PROCEDURES Procedure Date Procedure Name Provider Procedure Notes S tatus EKG Andrew Villalta MD completed SNOMED-CT: [id number] Current Medications Documented Andrew Villalta MD completed ZIO Stephanie roth MD completed SNOMED-CT: [id number] 633845 Current Medications Documented Andrew Villalta MD completed EKG Andrew Villalta MD completed Stress EKG Velia Mejia MD complet ed Cardiolite, 2 units Velia Mejia MD completed SPECT Images Velia Mejia MD compl eted ZIO Holter Teresa roth MD completed EKG Andrew Villalta MD completed SNOMED-CT: [id number] 283351 Current Medications Documented Andrew Villalta MD completed
--- OUTSIDE RECORDS SUMMARY | 2024-08-14 08:34 | XMS_ITS | Encounter Summary ---
Author Organization [facility] Address [address] [place] [address] Care Team Providers Care Water Operator Name Role Phone Xochilt Dillard HOLISTIC NUTRITIONIST Primary Care Provider Unav ailable Levon Dalal MD Unavailable [phone] Jennifer Manzanares MD Unavailable Victorino Shahid MD Unavailable [phone] Mimi De Anda MD Unavailable [phone] Mimi De Anda MD Primary Care Provider [phone] Encounter Details Date Type Department Care Team (Late st Contact Info) Description 01/22/2020 Just Sing Itt Message Enc [facility] Medical Group Family & Internal Medicine [address] [address] Xochilt Dillard, HOLISTIC NUTRITIONIST RE: Other Social History Tobacco Use Types Packs/Day Years [...] Sex Assigned at Female 04/08/2018 9:44 AM SECURITY LEAD Legal Sex Female 6:17 PM CDT Gender Identity Female 04/08/2018 9:44 AM SECURITY LEAD Sexual Orientation Straight 04/08/2018 9: 11 AM SECURITY LEAD 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 No / Unsure 01/21/2020 2:57 PM CDT documented as of this encounter Functional [...] Description 08/25/2024 1:00 PM CDT Office Visit [facility] Medical Group Family & Internal Medicine [facility] [id number] [place], [place] [id number] Mimi De Anda MD [address] [place] [address] [place] [address] documented as of this encounter Visit Diagnoses Not on filedocumented in this encounter Additional Health Concerns Infection Onset Date Last Indicated Resolved Time COVID-19 Rule Out 04/15/2021 04/15/2021 04/18/2021 2:12 PM SECURITY LEAD COVID-19 Rule Out 04/18/2021 04/18/2021 04/18/2021 11:37 PM SECURITY LEAD COVID-19 Confirmed 04/18/2021 04/18/2021 12:34 AM SECURITY LEAD Assessment Noted Time PHQ-9 Depression Total Score: 15 019 8:04 AM CDT documented as of this encounter Care Teams Water Operator Relationship Specialty Start Date End Date Xochilt Dillard NP PCP - General NURSE PRACTITIONER 04/08/18 03/30/21 [place] [address] [place], [place] [id number] PCP - General FAMILY PRACTICE 03/31/21 Levon Dalal MD Three [address] [id number] [place] [facility] Chief INTERVENTIONAL CARDIOLOGY 05/07/18 Jennifer Manzanares MD [address] [address] CLINICAL CARDIAC ELECTROPHYSIOLOGY 07/29/18 [place] [address] [facility] [address] [place], [place] [id number] ENDOCRINOLOGY 07/29/18 [place] [address] [place], [place] [id number] FAMILY PRACTICE 03/31/21 03/31/21 documented as of this encounter
--- OUTSIDE RECORDS SUMMARY | 2024-08-14 08:35 | XMS_ITS | Encounter Summary ---
Author Organization [facility] Address [address] [place] [address] Care Team Providers Care Child And Youth Program Assistant Name Role Phone Levon Dalal MD Unavailable [phone] Jennifer Manzanares MD Unavailable Victorino Shahid MD Unavailable Mimi De Anda MD Primary Care Provider [phone] Encounter Details Date Type Department Care Team (Late st Contact Info) Description 09/22/2022 MyCexpressor softwaret Message Enc [facility] Medical Group Family & Internal Medicine [facility] [address] [place] [address] [place] [id number] [place] [address]. [address] [place] [address] Flu vaccine Social History Tobacco Use Types Packs/Day Years Used Date Smoking Tobacco: Never Smokeless Tobacco: Never Alcohol Use Standard Drinks/Week Comments Not Currently 0 (1 standard drink = 0.6 oz pur e alcohol) Every 3 months AUDIT-C Answer Date Recorded Frequency of Alcohol Consumption Monthly or less 04/08/2018 Average Number of Drinks 1 or 2 018 Frequency of Binge Drinking Never 03/11 PHQ-2 Answer Date Recorded Patient Health Questionnaire-2 Score 0 07/06/2022 Education Answer Date Recorded What is the highest level of school you have completed or the highest degree you have received? 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 [address] [place] [address] documented as of this encounter Visit Diagnoses Not on filedocumented in this encounter Additional Health Concerns Assessment Noted Time PHQ-9 Depression Total Score: 0 01/07/20 22 9:20 AM CDT documented as of this encounter Care Teams Child And Youth Program Assistant Relationship Specialty Start [place] [address] [address] [place] [id number] PCP - General FAMILY PRACTICE 03/31/21 Levon Dalal MD [facility]. [address] [id number] [place] [employer] Specialist INTERVENTIONAL CARDIOLOGY 05/07/18 Jennifer Manzanares MD [facility]. [facility] [address] [place] [address] CLINICAL CARDIAC ELECTROPHYSIOLOGY 07/29/18 [place] [address] [address] [facility] [address] [place] [address] ENDOCRINOLOGY 07/29/18 documented as of this encounter
--- OUTSIDE RECORDS SUMMARY | 2024-08-14 08:35 | XMS_ITS | Encounter Summary ---
Author Organization [facility] Address [address] [place] [address] Care Team Providers Care Workers' Compensation Hearings Officer Name Role Phone Xochilt Dillard PAYMENT MANAGER Primary Care Provider Unav ailable Levon Dalal MD Unavailable [phone] Jennifer Manzanares MD Unavailable Victorino Shahid MD Unavailable [phone] Mimi De Anda MD Unavailable [phone] Mimi De Anda MD Primary Care Provider [phone] Encounter Details Date Type Department Care Team (Late st Contact Info) Description 05/07/2019 MyChart Message Enc [facility] Medical Group Family & Internal Medicine [address] [address] Xochilt Dillard, JAKOB RE: Follow Up/Update Social History Tobacco Use Types Packs/Day Years [...] Sex Assigned at Female 04/08/2018 9:44 AM CLINICAL STUDY MANAGER Legal Sex Female 6:17 PM CDT Gender Identity Female 04/08/2018 9:44 AM CLINICAL STUDY MANAGER Sexual Orientation Straight 04/08/2018 9: 11 AM CLINICAL STUDY MANAGER 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 [address] [place] [address] documented as of this encounter Visit Diagnoses Not on filedocumented in this encounter Additional Health Concerns Infection Onset Date Last Indicated Resolved Time COVID-19 Rule Out 04/15/2021 04/15/2021 04/18/2021 2:12 PM CLINICAL STUDY MANAGER COVID-19 Rule Out 04/18/2021 04/18/2021 04/18/2021 11:37 PM CLINICAL STUDY MANAGER COVID-19 Confirmed 04/18/2021 04/18/2021 12:34 AM CLINICAL STUDY MANAGER Assessment Noted Time PHQ-9 Depression Total Score: 15 019 8:04 AM CDT documented as of this encounter Care Teams Workers' Compensation Hearings Officer Relationship Specialty Start Date End Date Xochilt Dillard NP PCP - General NURSE PRACTITIONER 04/08/18 03/30/21 [place] [address] [place], [place] [id number] PCP - General FAMILY PRACTICE 03/31/21 Levon Dalal MD [facility]. [facility] [address] [place], [place] [address] [place] Dried Yeast Supervisor INTERVENTIONAL CARDIOLOGY 05/07/18 Jennifer Manzanares MD Three [facility]. [facility] [address] [place], [place] [address] CLINICAL CARDIAC ELECTROPHYSIOLOGY 07/29/[address] [place] [address] [facility] [address] [place] [address] ENDOCRINOLOGY 07/29/18 [place] [address] [place], [place] [phone] FAMILY PRACTICE 03/31/21 03/31/21 documented as of this encounter
--- OUTSIDE RECORDS SUMMARY | 2024-08-14 08:35 | XMS_ITS | Encounter Summary ---
Author Organization [facility] Address [address] [place] [address] Care Team Providers Care Medical Staff Coordinator Name Role Phone Xochilt Dillard SIGNAL SYSTEM TESTING MAINTAINER Primary Care Provider Unav ailable Levon Dalal MD Unavailable [phone] Jennifer Manzanares MD Unavailable Victorino Shahid MD Unavailable [phone] Mimi De Anda MD Unavailable [phone] Mimi De Anda MD Primary Care Provider [phone] Encounter Details Date Type Department Care Team (Late st Contact Info) Description 01/09/2021 e-contratost Message Enc [facility] Medical Group Family & Internal Medicine [address] [address] Xochilt Dillard, SIGNAL SYSTEM TESTING MAINTAINER Other Social History Tobacco Use Types Packs/Day Years Used Date Smoking Tobacco: Never Smokeless Tobacco: Never Alcohol Use Standard Drinks/Week Comments Yes 5 (1 standard drink = 0.6 oz pur e alcohol) Every 3 months AUDIT-C Answer Date Recorded Frequency of Alcohol Consumption Monthly or less 04/08/2018 Average Number of Drinks 1 or 2 018 Frequency of Binge Drinking Never 03/11 PHQ-2 Answer Date Recorded PHQ-2 Score - If the patient scores above 3, please move on to questions 3-9 0 09/08/2020 Education Answer Date Recorded What is the highest level of school you have completed or the highest degree you have received? 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 No / Unsure 01/06/2021 10:13 AM CDT documented as of this encounter [...] Waldron RN Active documented in this encounter Progress Notes * Xochilt Dillard NP - 01/10/2021 8:51 AM CDT I sent in order. Thank you. * Kateryna Rocha RN - 01/10/2021 8:48 AM CDT Not on current med list, okay for refill? * Kateryna Rocha RN - 01/10/2021 8:47 AM CDTFrom: Kalyani Hanna To: Xochilt Dillard Sent: 01/09/2021 10:03 PM CDT Subject: Other I am in need of a refill for triamcinolone cream. Kalyani Tinajero documented in this encounter Plan of Treatment Upcoming Encounters Date Type Department Care Team (Late st Contact Info) Description 08/25/2024 1:00 PM CDT Office Visit [facility] Medical Group Family & Internal Medicine - [address] [address] [place] [address] [facility] [address] [place] [id number] documented as of this encounter Visit Diagnoses Not on filedocumented in this encounter Additional Health Concerns Infection Onset Date Last Indicated Resolved Time COVID-19 Rule Out 04/15/2021 04/15/2021 04/18/2021 2:12 PM HEALTH SERVICE WORKER COVID-19 Rule Out 04/18/2021 04/18/2021 04/18/2021 11:37 PM HEALTH SERVICE WORKER COVID-19 Confirmed 04/18/2021 04/18/2021 12:34 AM HEALTH SERVICE WORKER Assessment Noted Time PHQ-9 Depression Total Score: 4 09/09/19 21 4:18 PM CDT documented as of this encounter Care Teams Medical Staff Coordinator Relationship Specialty Start Date End Date Xochilt Dillard NP PCP - General NURSE PRACTITIONER 04/08/18 03/30/21 [place] [address] [place] [address] PCP - General FAMILY PRACTICE 03/31/21 Levon Dalal MD Three [facility]. [address] [address] [place] Delivery Associate INTERVENTIONAL CARDIOLOGY 05/07/18 Jennifer Manzanares MD Three [facility]. [place] [address] [place], [place] [id number] CLINICAL CARDIAC ELECTROPHYSIOLOGY 07/29/[address] [place] [address] [facility] [address] [place] [address] ENDOCRINOLOGY 07/29/18 [place] [address] [place] [address] FAMILY PRACTICE 03/31/21 03/31/21 documented as of this encounter
--- OUTSIDE RECORDS SUMMARY | 2024-08-14 08:35 | XMS_ITS | Encounter Summary ---
Author Organization [facility] Address [address] [place] [address] Care Team Providers Care Seed Mill Superintendent Name Role Phone Xochilt Dillard BROADCAST ENGINEER Primary Care Provider Unav ailable Levon Dalal MD Unavailable [phone] Jennifer Manzanares MD Unavailable Victorino Shahid MD Unavailable Mimi De Anda MD Unavailable [phone] Mimi De Anda MD Primary Care Provider [phone] Encounter Details Date Type Department Care Team (Latest Contact Info) Description 02/12/2019 MyChart Message Enc [facility] Medical Group Multispecialty Care [place] [address] [place] [address] Rebecca Rivera MD Medication Questions Social History Tobacco Use Types [...] Sex Assigned at Female 04/08/2018 9:44 AM PLASTIC PARTS FABRICATOR TRIMMER Legal Sex Female 6:17 PM CDT Gender Identity Female 04/08/2018 9:44 AM PLASTIC PARTS FABRICATOR TRIMMER Sexual Orientation Straight 04/08/2018 9: 11 AM PLASTIC PARTS FABRICATOR TRIMMER 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 Patient will not be able to have MARTINEZ ablation as T3 remains over 5.0 so that risk for hyperthyroid crisis is elevated. Patient is not feeling well with exacerbation of hyperthyroid symptoms of increased perspiration., palpitations and irritability despite beta sharifa and prednisone. Recommend : palpitations continue metoprolol ER 50 mg Increase to bid Re-start methimazole 10 mg bid , am and bedtime. Prednisone 20 mg x 4 days then stop. ?? Gave my cell to call me if over weekend no better. In 4 days let us know how you feel. REBECCA RIVERA MD TIC PARTS FABRICATOR TRIMMER documented in this encounter Plan of Treatment Upcoming Encounters Date Type Department Care Team (Late st Contact Info) Description 08/25/2024 1:00 PM CDT Office Visit [facility] Medical Group Family & Internal Medicine - [place] [address] [place] [address] [place] [address] [facility]. [address] [place] [address] documented as of this encounter Visit Diagnoses Not on filedocumented in this encounter Additional Health Concerns Infection Onset Date Last Indicated Resolved Time COVID-19 Rule Out 04/15/2021 04/15/2021 04/18/2021 2:12 PM PLASTIC PARTS FABRICATOR TRIMMER COVID-19 Rule Out 04/18/2021 04/18/2021 04/18/2021 11:37 PM PLASTIC PARTS FABRICATOR TRIMMER COVID-19 Confirmed 04/18/2021 04/18/2021 12:34 AM PLASTIC PARTS FABRICATOR TRIMMER Assessment Noted Time PHQ-9 Depression Total Score: 15 019 8:04 AM CDT documented as of this encounter Care Teams Seed Mill Superintendent Relationship Specialty Start Date End Date Xochilt Dillard NP PCP - General NURSE PRACTITIONER 04/08/18 03/30/21 [place] [address] [facility] [address] PCP - General FAMILY PRACTICE 03/31/21 Levon Dalal MD [facility]. [facility] [address] [place] [address] [place] Template Fitter INTERVENTIONAL CARDIOLOGY 05/07/18 Jennifer Manzanares MD Three [facility]. [address] [place] [address] CLINICAL CARDIAC ELECTROPHYSIOLOGY 07/29/18 [place] [address] [facility] [address] [place] [address] ENDOCRINOLOGY 07/29/18 [place] [address] [place] [address] FAMILY PRACTICE 03/31/21 03/31/21 documented as of this encounter
--- OUTSIDE RECORDS SUMMARY | 2024-08-14 08:35 | XMS_ITS | Encounter Summary ---
Author Organization [facility] Address [address] [place] [address] Care Team Providers Care Review Rn Name Role Phone Don Wilson DO Primary Care Provider Encounter Details Date Type Department Care Team (Late st Contact Info) Description 08/08/2024 Results Follow-Up [facility] Occupatiuonal Health [address] [facility] [address] (Third Floor) [place] [address] Coreen Hartman MA Social History Tobacco Use Types Packs/Day Years Used Date Smoking Tobacco: Never Comments Unknown Sex and Gender Information Value Date Recorded Sex Assigned at Not on file Legal Sex Female 9:17 AM GIS MANAGER Gender Identity Not on file Sexual Orientation Not on file documented as of this encounter Plan of Treatment Not on file documented as of this encounter Visit Diagnoses Not on filedocumented in this encounter Care Teams Review Rn Relationship Specialty Start Date End Date Don Wilson DO [address] [place] [address] PCP - General 10/19/16 documented as of this encounter
--- OUTSIDE RECORDS SUMMARY | 2024-08-14 08:35 | XMS_ITS | Encounter Summary ---
Author Organization [facility] Address [facility] [place] [address] Care Team Providers Care Silverware Cleaner Name Role Phone Levon Dalal MD Unavailable [phone] Jennifer Manzanares MD Unavailable Victorino Shahid MD Unavailable [phone] Mimi De Anda MD Primary Care Provider [phone] Encounter Details Date Type Department Care Team (Late st Contact Info) Description 10/25/2021 MyCInfotrievet Message Enc [facility] Medical Group Family & Internal Medicine [facility] [address] [place] [address] [place] [id number] [place] [address]. [address] [place] [address] Follow up Social History Tobacco Use Types Packs/Day Years [...] please move on to questions 3-9 0 09/15/2021 Education Answer Date Recorded What is the highest level of school you have completed or the highest degree you have received? 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 No / Unsure 10/13/2021 10:56 AM CDT documented as of this encounter [...] documented in this encounter Progress Notes * Marva Flores RN - 10/25/2021 7:29 PM CDT FYI documented in this encounter Plan of Treatment Upcoming Encounters Date Type Department Care Team (Late st Contact Info) Description 08/25/2024 1:00 PM CDT Office Visit [facility] Medical Group Family & Internal Medicine - [place] [address] [place] [address] [place] [address] [facility] [place], [place] [id number] documented as of this encounter Visit Diagnoses Not on filedocumented in this encounter Additional Health Concerns Assessment Noted Time PHQ-9 Depression Total Score: 4 09/09/19 21 4:18 PM CDT documented as of this encounter Care Teams Silverware Cleaner Relationship Specialty Start [place] [address] [place], [place] [id number] PCP - General FAMILY PRACTICE 03/31/21 Levon Dalal MD [facility]. [address] [place], [place] [address] [place] Custom Shoe Designer And Maker INTERVENTIONAL CARDIOLOGY 05/07/18 Jennifer Manzanares MD [facility]. [address] [place], [place] [address] CLINICAL CARDIAC ELECTROPHYSIOLOGY 07/29/18 [place] [address] [facility] [address] [place] [address] ENDOCRINOLOGY 07/29/18 documented as of this encounter
--- OUTSIDE RECORDS SUMMARY | 2024-08-14 08:35 | XMS_ITS | Encounter Summary ---
Author Organization [facility] Address [address] [place] [address] Care Team Providers Care Loading Unit Tool Setter Name Role Phone Xochilt Dillard ASSIGNMENT DESK ASSISTANT Primary Care Provider Unav ailable Levon Dalal MD Unavailable [phone] Jennifer Manzanares MD Unavailable Victorino Shahid MD Unavailable [phone] Mimi De Anda MD Unavailable [phone] Mimi De Anda MD Primary Care Provider [phone] Encounter Details Date Type Department Care Team (Late st Contact Info) Description 07/29/2018 Hospital Orders Only [facility] Ref[place] [address] Jennifer Manzanares MD Three [facility]. [address] [place] [address] Social History Tobacco Use Types Packs/Day Years Used Date Smoking Tobacco: Never Smokeless Tobacco: Never Alcohol Use Standard Drinks/Week Comments Yes 0 (1 standard drink = 0.6 oz pur e alcohol) rare AUDIT-C Answer Date Recorded Frequency of Alcohol Consumption Monthly or less 04/08/2018 Average Number of Drinks 1 or 2 018 Frequency of Binge Drinking Never 03/11 Education Answer Date Recorded What is the highest level of school you have completed or the highest degree you have received? 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 No 08/01/2018 1:28 PM CDT Keaton Waldron R N Active documented in this encounter Plan of Treatment Upcoming Encounters Date Type Department Care Team (Late st Contact Info) Description 08/25/2024 1:00 PM CDT Office Visit [facility] Medical Group Family & Internal Medicine [address] [address] [place] [address] [facility] [address] [place] [address] documented as of this encounter Visit Diagnoses Not on filedocumented in this encounter Additional Health Concerns Infection Onset Date Last Indicated Resolved Time COVID-19 Rule Out 04/15/2021 04/15/2021 04/18/2021 2:12 PM EXCEPTIONAL STUDENT EDUCATION TEACHER COVID-19 Rule Out 04/18/2021 04/18/2021 04/18/2021 11:37 PM EXCEPTIONAL STUDENT EDUCATION TEACHER COVID-19 Confirmed 04/18/2021 04/18/2021 12:34 AM EXCEPTIONAL STUDENT EDUCATION TEACHER documented as of this encounter Care Teams Loading Unit Tool Setter Relationship Specialty Start Date End Date Xochilt Dillard NP PCP - General NURSE PRACTITIONER 04/08/18 03/30/21 [place] [address] [place] [address] PCP - General FAMILY PRACTICE 03/31/21 Levon Dalal MD [facility] [address] [place] [address] [place] Diploma Dental Assistant INTERVENTIONAL CARDIOLOGY 05/07/18 Jennifer Manzanares MD [facility] [address] [place], [place] [address] CLINICAL CARDIAC ELECTROPHYSIOLOGY 07/29/18 [place] [address] [facility] [address] [place] [address] ENDOCRINOLOGY 07/29/18 [place] [address] [place] [address] FAMILY PRACTICE 03/31/21 03/31/21 documented as of this encounter
--- OUTSIDE RECORDS SUMMARY | 2024-08-14 08:35 | XMS_ITS | Encounter Summary ---
Author Organization [facility] Address [address] [place] [address] Care Team Providers Care Automobile Mechanic Radiator Name Role Phone Xochilt Dillard CITY ADMINISTRATOR Primary Care Provider Unav ailable Levon Dalal MD Unavailable [phone] Jennifer Manzanares MD Unavailable Victorino Shahid MD Unavailable [phone] Mimi De Anda MD Unavailable [phone] Mimi De Anda MD Primary Care Provider [phone] Encounter Details Date Type Department Care Team (Late st Contact Info) Description 11/20/2018 [facility] [email or web address] Message Enc [facility] Medical Group Family & Internal Medicine [address] [address] Xochilt Dillard, CITY ADMINISTRATOR RE: Other Social History Tobacco Use Types [...] Sex Assigned at Female 04/08/2018 9:44 AM OPERATIONS MANAGEMENT PROFESSIONALS Legal Sex Female 6:17 PM CDT Gender Identity Female 04/08/2018 9:44 AM OPERATIONS MANAGEMENT PROFESSIONALS Sexual Orientation Straight 04/08/2018 9: 11 AM OPERATIONS MANAGEMENT PROFESSIONALS 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 [address] [place] [address] documented as of this encounter Visit Diagnoses Not on filedocumented in this encounter Additional Health Concerns Infection Onset Date Last Indicated Resolved Time COVID-19 Rule Out 04/15/2021 04/15/2021 04/18/2021 2:12 PM OPERATIONS MANAGEMENT PROFESSIONALS COVID-19 Rule Out 04/18/2021 04/18/2021 04/18/2021 11:37 PM OPERATIONS MANAGEMENT PROFESSIONALS COVID-19 Confirmed 04/18/2021 04/18/2021 12:34 AM OPERATIONS MANAGEMENT PROFESSIONALS Assessment Noted Time PHQ-9 Depression Total Score: 15 019 8:04 AM CDT documented as of this encounter Care Teams Automobile Mechanic Radiator Relationship Specialty Start Date End Date Xochilt Dillard NP PCP - General NURSE PRACTITIONER 04/08/18 03/30/21 [place] [address] [address] [place], [place] [id number] PCP - General FAMILY PRACTICE 03/31/21 Levon Dalal MD [facility] [address] [place], [place] [address] [place] Technical Training Coordinator INTERVENTIONAL CARDIOLOGY 05/07/18 Jennifer Manzanares MD Three [facility]. [address] [place], [place] [id number] CLINICAL CARDIAC ELECTROPHYSIOLOGY 07/29/18 [place] [address] [facility] [address] [place] [address] ENDOCRINOLOGY 07/29/18 [place] [address] [place] [address] FAMILY PRACTICE 03/31/21 03/31/21 documented as of this encounter
--- OUTSIDE RECORDS SUMMARY | 2024-08-14 08:35 | XMS_ITS | Encounter Summary ---
Author Organization [facility] Address [address] [place] [address] Care Team Providers Care Collar Packer Name Role Phone Xochilt Dillard RN NURSERY Primary Care Provider Unav ailable Levon Dalal MD Unavailable [phone] Jennifer Manzanares MD Unavailable Victorino Shahid MD Unavailable [phone] Mimi De Anda MD Unavailable [phone] Mimi De Anda MD Primary Care Provider [phone] Encounter Details Date Type Department Care Team (Late st Contact Info) Description 08/22/2020 N42 Message Enc [facility], [address] [address] Ana Alcantara PA-C RE: Referral Request Social History Tobacco Use Types Packs/Day Years [...] please move on to questions 3-9 0 08/04/2020 Education Answer Date Recorded What is the highest level of school you have completed or the highest degree you have received? 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 No / Unsure 08/04/2020 9:43 AM CDT documented as of this encounter [...] Author Status No 08/01/2018 1:28 PM CDT Ketaon Waldron RN Active * Because of a [...] documented in this encounter Progress Notes * Ana Alcantara PA-C - 08/23/2020 8:35 AM CDT Please refill patients Metoprolol, Cardizem, and Eliquis. Thanks Ana documented in this encounter Plan of Treatment Upcoming Encounters Date Type Department Care Team (Late st Contact Info) Description 08/25/2024 1:00 PM CDT Office Visit [facility] Medical Group Family & Internal Medicine [facility] [address] [place] [address] [place] [address] [facility] [address] [place], [place] [id number] documented as of this encounter Visit Diagnoses Not on filedocumented in this encounter Additional Health Concerns Infection Onset Date Last Indicated Resolved Time COVID-19 Rule Out 04/15/2021 04/15/2021 04/18/2021 2:12 PM CAGE MANAGER COVID-19 Rule Out 04/18/2021 04/18/2021 04/18/2021 11:37 PM CAGE MANAGER COVID-19 Confirmed 04/18/2021 04/18/2021 12:34 AM CAGE MANAGER Assessment Noted Time PHQ-9 Depression Total Score: 15 019 8:04 AM CDT documented as of this encounter Care Teams Collar Packer Relationship Specialty Start Date End Date Xochilt Dillard NP PCP - General NURSE PRACTITIONER 04/08/18 03/30/21 [place] [address] [place] [address] PCP - General FAMILY PRACTICE 03/31/21 Levon Dalal MD [address] [place], [place] [id number] [place] Associate INTERVENTIONAL CARDIOLOGY 05/07/18 Jennifer Manzanares MD [address] [place], [place] [id number] CLINICAL CARDIAC ELECTROPHYSIOLOGY 4/22/19 [place] [address] [address] [place] [address] ENDOCRINOLOGY 07/29/18 [place] [address] [facility] [place] [place] [address] FAMILY PRACTICE 03/31/21 03/31/21 documented as of this encounter
--- OUTSIDE RECORDS SUMMARY | 2024-08-14 08:35 | XMS_ITS | Referral Summary ---
Author Organization [facility] Address [address] [place] [address] Care Team Providers Care Odd Shoe Examiner Name Role Phone WilsnoDon Primary Care Provider Encounters Date Type Department Care Team Description 08/08/2024 Results Follow-Up [facility] Healthcare Occupatiuonal Health [address] [facility] [address] (Third Floor) [place] [address] Coreen Hartman MA 08/05/2024 9:35 AM CDT Lab [facility] Lab [address] [place] [address] Pre-employment health screening examination 08/05/2024 Orders Only [facility]ly [facility] [address] [facility] [address] (Third Floor) [place] [address] Michael Clarke MD Physical exam, pre-employment (Primary Dx); Pre-employment health screening examination from Last 3 Months Allergies Active Allergy Reactions Criticality Noted Date Comments Penicillins Itching Reaction: ITCHING, Reaction: ITCHING Pollen Extracts Other (See comments) Reaction: OTHER REACTION, , Reaction: OTHER REACTION, Simvastatin Other (See comments) Reaction: OTHER REACTION, , Reaction: OTHER REACTION, Immunizations Immunization Administration Dates Next Due Pfizer SARS-CoV-2 Monovalent Vaccination (12+ Yrs) PURPLE 04/19/2020,03/29/2020 Social History Tobacco Use Types Packs/Day Years Used Date Smoking Tobacco: Never Comments Unknown Sex and Gender Information Value Date Recorded Sex Assigned at Not on file Legal Sex Female 9:17 AM JOB DEVELOPER Gender Identity Not on file Sexual Orientation Not on file Plan of Treatment Not on file Procedures Procedure Name Priority Date/Time Associated Diagnosis Comments T-SPOT.TB Routine 08/05/2024 9:47 AM CDT Pre-employment health screening examination SCREENING MAMMOGRAM Routine 03/21/2013 8 :40 AM JOB DEVELOPER from Last 3 Months or Most Recently Relevant to Health Maintenance Results * T-SPOT.TB Blood (08/05/2024 9:47 AM CDT) Pathologist [facility] T-SPOT.TB Negative SeeBelow Comment: Normal Value: Negative A negative test result does not exclude the possibility of exposure to or infection with Mycobacterium tuberculosis (M. tuberculosis). Patients with recent exposure to TB infected individuals exhibiting a negative T-SPOT.TB result should be considered for retesting within 6 weeks or if other relevant clinical symptoms indicate. Results from T-SPOT.TB testing must be used in conjunction with each individual's epidemiological history, current medical status, and results of other diagnostic evaluations. The T-SPOT.TB test is qualitative and results are reported as positive, borderline or negative, given that the test controls perform as expected. In line with the Centers for Disease Control and Prevention's 2010 recommendation to report quantitative measurements alongside the qualitative result, the laboratory provides spot counts for informational purposes only. The T-SPOT.TB test should not be interpreted as a quantitative test. T-SPOT.TB Panel [facility] Spot [facility] 0 [facility] Panel B Spot Count 0 [facility] T-SPOT.TB Negative Control Passed MANDI T-SPOT.TB Positive Control Passed [facility]I Comment: Test Performed at: [email or web address], [facility] [address] [place] [id number] YOON BANG,PHD Blood 08/05/2024 9:47 AM CDT 08/05/2024 9:52 AM CDT Narrative MANDI - 08/07/2024 3:03 PM CDT Bill to [facility] - 1520 Patient is employed by/enrolled at:->[facility] Michael Clarke MD LAB MICROBIOLOGY - GENERAL OR DERABLES Final Result [facility] [address] [facility] Department [place] [address] * Screening Mammogram (03/21/2013 8:40 AM JOB DEVELOPER) Anatomical Region Laterality Modality Breast N/A Mammography 03/21/2013 8:40 AM JOB DEVELOPER Narrative 03/24/2013 10:46 AM JOB DEVELOPER JAY LUNA M.D. FINAL REPORT ACC# Date Time Exam [id number] Mar 21, 2013 08:40:00 [place] [id number] Screening Mamm Bilat Technologist(s): Dominga Monroe; ; EXAMINATION: Mammogram Technique: Bilateral Full-Field Digital Screening Mammogram was performed. Views obtained: bilateral craniocaudal and bilateral mediolateral oblique. Computer Aided Detection was performed with [employer].3 version 9.3. Mammogram Findings: There are scattered fibroglandular densities. There is no suspicious abnormality in either breast. IMPRESSION: Annual screening mammography is recommended. OVERALL FINAL ASSESSMENT: BI-RADS CATEGORY 1: Negative. Requested By: Don Wilson D.O. Dictated By: JAY LUNA M.D. on Mar 24 2013 10:46A This document has been electronically signed by: JAY LUNA M.D. on Mar 24 2013 10:46A Procedure Note Provider, MD Manas - 08/03/2016 JAY LUNA M.D. FINAL REPORT ACC# Date Time Exam [id number] Mar 21, 2013 08:40:00 [facility] [address] Screening Mamm Bilat Technologist(s): Dominga Monroe; ; EXAMINATION: Mammogram Technique: Bilateral Full-Field Digital Screening Mammogram was performed. Views obtained: bilateral craniocaudal and bilateral mediolateral oblique. Computer Aided Detection was performed with [employer]3 version 9.3. Mammogram Findings: There are scattered fibroglandular densities. There is no suspicious abnormality in either breast. IMPRESSION: Annual screening mammography is recommended. OVERALL FINAL ASSESSMENT: BI-RADS CATEGORY 1: Negative. Requested By: Don Wilson D.O. Dictated By: JAY LUNA M.D. on Mar 24 2013 10:46A This document has been electronically signed by: JAY LUNA M.D. on Mar 24 2013 10:46A us Historical Provider MD SLATER MAMMO PROCEDURES Ruthie l Result from Last 3 Months or Most Recently Relevant to Health Maintenance Insurance [facility] HMO/PPO Address: [facility] [address] [place] [address] * Guarantor: OHARAKALYANI L Account Type Relation to Patient Date of Phone Billing Address Personal/Family [address] [place] [address] [facility] Care Teams Odd Shoe Examiner Relationship Specialty Start Date End Date Don Wilson DO [address] [place] [address] [facility] - General 10/19/16
--- OUTSIDE RECORDS SUMMARY | 2024-08-14 08:35 | XMS_ITS | Clinical Summary ---
Author Organization [facility] Address [address] [place] [address] Phone Care Team Providers Care Penology Professor Name Role Phone Don Wilson DO Primary Care Provider Allergies Active Allergy Reactions Criticality Noted Date Comments Ciprofloxacin Itching Low 12/05/2010 Penicillins Itching Low 12/05/2010 Simvastatin Muscle Pain Low 12/05/2010 Medications atenolol (TENORMIN) 50 mg Oral tablet Take 50 mg by mouth daily. Active montelukast (SINGULAIR) 10 mg Oral tablet Take 10 mg by mouth daily at bedtime. Active fexofenadine (KARLO) 180 mg Oral tablet Take 180 mg by mouth daily. Active aspirin (JEFF) 81 mg Oral Tab Take by mouth. Active solifenacin (VESICARE) 10 mg Oral Tab Take 10 mg by mouth daily. Active Active Problems Patient Care Coordination No te Formatting of this note migh t be different from the original. Primary Care: Maria Isabel Wilson DO Referring Provider: Maria Isabel Wilson 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 Abnormal mammogram 12/05/2010 HTN (hypertension) Hyperlipidemia Ovarian cyst Family History Medical History Relation Name Comments Diabetes Father Heart Disease Father Lung Cancer Maternal Grandfather Diabetes Maternal Grandmother Heart Disease Maternal Grandmother Stroke Maternal Grandmother Cancer Mother lining o f uter us Heart Disease Mother Heart Disease Paternal Grandfather Relation Name Status Comments Father Maternal Grandfather Maternal Grandmother Mother Paternal Grandfather Social History Tobacco Use Types Packs/Day Years Used Date Smoking Tobacco: Never Smokeless Tobacco: Never Alcohol Use Standard Drinks/Week Comments Yes 0 (1 standard drink = 0.6 oz pur e alcohol) rare Comments No Sex and Gender Information Value Date Recorded Sex Assigned at Not on file Legal Sex Female 6:04 AM INSTRUCTIONAL DESIGN SPECIALIST Gender Identity Not on file Sexual Orientation Not on file Last Filed Vital Signs Vital Sign Reading Time Taken Comments Blood Pressure 116/74 06/19/2011 10:43 AM CDT Pulse - - Temperature - - Respiratory Rate - - Oxygen Saturation - - Inhaled Oxygen Concentration - - Weight 96.6 kg (213 lb) 06/19/2011 10:43 AM CDT Height 165.1 cm (5' 5 ) 06/19/2011 10:43 AM CDT Body Mass Index 35.45 06/19/2011 10:43 AM CDT Plan of Treatment Health Maintenance Due Date Last Done Comments DTAP/TDAP/TD VACCINES (1 - Tdap) 1981 HPV/Cotest (21-29) 09/06/1983 CERVICAL CANCER SCREENING 1992 HPV/Cotest (30-65) 1992 PAP SMEAR 1992 COLORECTAL SCREENING 09/06/2007 Colorectal Cancer Screening 09/06/2007 FIT-DNA Q 3 years 09/06/2007 FIT/FOBT Q 1 year 09/06/2007 Flex Sig/CT Colonography Q 5 years 09/06/2007 BREAST CANCER SCREENING 05/25/2012 05/25/19 12, 11/24/2010, 11/18/2010, Additional history exists ZOSTER VACCINE (1 of 2) 2012 INFLUENZA VACCINE (#1) 2023 01/06/2022 RSV VACCINE (60+ or ) (1 - 1-dose 75+ series) 2037 Procedures Procedure Name Priority Date/Time Associated Diagnosis Comments MAMMO DIAGNOSTIC BILATERAL W OR WO CAD Routine 05/25/2011 from Last 3 Months or Most Recently Relevant to Health Maintenance Results * MAMMO DIGITAL DIAG BILAT (05/25/2011) Anatomical Region Laterality Modality Breast Bilateral Other Don Wilson DO MAMMO ORDERABLES Final Result from Last 3 Months or Most Recently Relevant to Health Maintenance Insurance BCBS BLUE ACCESS/TRUE BLUE PPO Care Teams Penology Professor Relationship Specialty Start Date End Date Don Wilson DO [address] [facility] [place] [address] PCP - General Family Practice 12/05/10
--- OUTSIDE RECORDS SUMMARY | 2024-08-14 08:35 | XMS_ITS | Encounter Summary ---
Author Organization [facility] Address [address] [place] [address] Care Team Providers Care Leaf Sticker Name Role Phone Xochilt Dillard LEAD VULCANIZING OPERATOR Primary Care Provider Unav ailable Levon Dalal MD Unavailable [phone] Jennifer Manzanares MD Unavailable Victorino Shahid MD Unavailable [phone] Mimi De Anda MD Unavailable Mimi De Anda MD Primary Care Provider [phone] Encounter Details Date Type Department Care Team (Late st Contact Info) Description 05/13/[address] 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 Family & Internal Medicine [facility] [address] [place] [address] [place] [address] [place] [address]. [address] [place] [address] documented as of this encounter Visit Diagnoses Not on filedocumented in this encounter Additional Health Concerns Infection Onset Date Last Indicated Resolved Time COVID-19 Rule Out 04/15/2021 04/15/2021 04/18/2021 2:12 PM SENIOR APPLICATIONS DEVELOPER COVID-19 Rule Out 04/18/2021 04/18/2021 04/18/2021 11:37 PM SENIOR APPLICATIONS DEVELOPER COVID-19 Confirmed 04/18/2021 04/18/2021 12:34 AM SENIOR APPLICATIONS DEVELOPER Assessment Noted Time PHQ-9 Depression Total Score: 15 019 8:04 AM CDT documented as of this encounter Care Teams Leaf Sticker Relationship Specialty Start Date End Date Xohcilt Dillard NP PCP - General NURSE PRACTITIONER 04/08/18 03/30/21 [place] [address] [address] [place], [place] [id number] PCP - General FAMILY PRACTICE 03/31/21 Levon Dalal MD [address] [id number] [employer] Audit Manager INTERVENTIONAL CARDIOLOGY 05/07/18 Jennifer Manzanares MD Three [facility]. [address] [id number] CLINICAL CARDIAC ELECTROPHYSIOLOGY 07/29/18 [place] [address] [facility] [address] [place] [address] ENDOCRINOLOGY 07/29/18 [place] [address] [place], [place] [id number] FAMILY PRACTICE 03/31/21 03/31/21 documented as of this encounter
--- OUTSIDE RECORDS SUMMARY | 2024-08-14 08:35 | XMS_ITS | Encounter Summary ---
Author Organization [facility] Address [address] [place] [address] Care Team Providers Care Glassware Maker Demonstrator Name Role Phone Levon Dalal MD Unavailable [phone] Jennifer Manzanares MD Unavailable Victorino Shahid MD Unavailable [phone] Mimi De Anda MD Primary Care Provider [phone] Encounter Details Date Type Department Care Team (Late st Contact Info) Description 10/04/2022 MyChart Message Enc 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 Family & Internal Medicine [facility] [address] [place] [address] [place] [address] [place] [address]. [address] [place] [address] documented as of this encounter Visit Diagnoses Not on filedocumented in this encounter Additional Health Concerns Assessment Noted Time PHQ-9 Depression Total Score: 0 01/07/20 22 9:20 AM CDT documented as of this encounter Care Teams Glassware Maker Demonstrator Relationship Specialty [place] [address] [place] [address] PCP - General FAMILY PRACTICE 03/31/21 Levon Dalal MD Three [facility]. [facility] [address] [place], [place] [phone] [place] Cycle Liaison INTERVENTIONAL CARDIOLOGY 05/07/18 Jennifer Manzanares MD Three [facility]. [facility] [address] [place], [place] [id number] CLINICAL CARDIAC ELECTROPHYSIOLOGY 07/29/18 [place] [address] [facility] [address] [place] [address] ENDOCRINOLOGY 07/29/18 documented as of this encounter
--- OUTSIDE RECORDS SUMMARY | 2024-08-14 08:35 | XMS_ITS | Encounter Summary ---
Author Organization [facility] Address [address] [place] [address] Care Team Providers Care Deck Specialist Name Role Phone Don Wilson DO Primary Care Provider Encounter Details Date Type Department Care Team (Late st Contact Info) Description 07/16/2017 [facility] [address] [place] [address] [place] [address] [address] Social History Tobacco Use Types Packs/Day Years Used Date Smoking Tobacco: Never Comments Unknown Sex and Gender Information Value Date Recorded Sex Assigned at Not on file Legal Sex Female 9:17 AM COUNTRY SALES MANAGER Gender Identity Not on file Sexual Orientation Not on file documented as of this encounter Plan of Treatment Not on file documented as of this encounter Visit Diagnoses Not on filedocumented in this encounter Care Teams Deck Specialist Relationship Specialty Start Date End Date Don Wilson DO [address] [place] [address] PCP - General 10/19/16 documented as of this encounter
--- OUTSIDE RECORDS SUMMARY | 2024-08-14 08:35 | XMS_ITS | Encounter Summary ---
Author Organization [facility] Address [address] [facility] [address] [place] [address] Phone Care Team Providers Care Dispatch Specialist Name Role Phone Don Wilson DO Primary Care Provider Encounter Details Date Type Department Care Team (Late st Contact Info) Description 03/12/2017 Orders Only [facility] ProviderManas MD [address] [place] [address] Social History Tobacco Use Types Packs/Day Years Used Date Smoking Tobacco: Never Comments Unknown Sex and Gender Information Value Date Recorded Sex Assigned at Not on file Legal Sex Female 9:17 AM LIMOUSINE AND HEARSE UPHOLSTERER Gender Identity Not on file Sexual Orientation Not on file documented as of this encounter Plan of Treatment Not on file documented as of this encounter Procedures Procedure Name Priority Date/Time Associated Diagnosis Comments DISCHARGE LABORATORY CUMULATIVE REPORT 03/12/2017 12:00 AM LIMOUSINE AND HEARSE UPHOLSTERER documented in this encounter Results * DISCHARGE LABORATORY CUMULATIVE REPORT (03/12/2017 12:00 AM LIMOUSINE AND HEARSE UPHOLSTERER) Narrative 03/12/2017 12:00 AM LIMOUSINE AND HEARSE UPHOLSTERER Ordered by an unspecified provider. Historical Provider LAB BLOOD ORDERABLES Ruthie l Result documented in this encounter Visit Diagnoses Not on filedocumented in this encounter Care Teams Dispatch Specialist Relationship Specialty Start Date End Date Don Wilson DO [address] [place] [address] PCP - General 10/19/16 documented as of this encounter
--- OUTSIDE RECORDS SUMMARY | 2024-08-14 08:35 | XMS_ITS | Encounter Summary ---
Author Organization [facility] - [facility] Address [address] [place] [address] Care Team Providers Care Suggestion Clerk Name Role Phone Levon Dalal MD Unavailable [phone] Jennifer Manzanares MD Unavailable Victorino Shahid MD Unavailable [phone] Mimi De Anda MD Primary Care Provider [phone] Encounter Details Date Type Department Care Team (Late st Contact Info) Description 02/15/2023 Ticketbis Message Enc [facility] Medical Group Family & Internal Medicine [address] [address] [facility], 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 [address] [place] [address] documented as of this encounter Visit Diagnoses Not on filedocumented in this encounter Additional Health Concerns Assessment Noted Time PHQ-9 Depression Total Score: 0 01/07/20 22 9:20 AM CDT documented as of this encounter Care Teams Suggestion Clerk Relationship Specialty Start [place] [address] [address] [place], [place] [phone] PCP - General FAMILY PRACTICE 03/31/21 Levon Dalal MD Three [facility]. [facility] [address] [place], [place] [phone] [place] Sample Preparation Supervisor INTERVENTIONAL CARDIOLOGY 05/07/18 Jennifer Manzanares MD Three [facility]. [facility] [address] [place], [place] [phone] CLINICAL CARDIAC ELECTROPHYSIOLOGY 07/29/18 [place] [address] [facility] [address] [place] [address] ENDOCRINOLOGY 07/29/18 documented as of this encounter
--- OUTSIDE RECORDS SUMMARY | 2024-08-14 08:35 | XMS_ITS | Encounter Summary ---
Author Organization [facility] Address [address] [place] [address] Care Team Providers Care Body Corporate Manager Name Role Phone Xochilt Dillard PHYSICAL THERAPY ASSISTANT Primary Care Provider Unav ailable Levon Dalal MD Unavailable [phone] Jennifer Manzanares MD Unavailable Victorino Shahid MD Unavailable [phone] Mimi De Anda MD Unavailable [phone] Mimi De Anda MD Primary Care Provider Encounter Details Date Type Department Care Team (Late st Contact Info) Description 01/17/2019 Tooth Bankt Message [facility] Family & Internal Medicine [address] [address] Xochilt Dillard, PHYSICAL THERAPY ASSISTANT RE: Medication Questions Social History Tobacco Use Types [...] Sex Assigned at Female 04/08/2018 9:44 AM LONG WALL MINING MACHINE HELPER Legal Sex Female 6:17 PM CDT Gender Identity Female 04/08/2018 9:44 AM LONG WALL MINING MACHINE HELPER Sexual Orientation Straight 04/08/2018 9: 11 AM LONG WALL MINING MACHINE HELPER 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 [address] [place] [address] documented as of this encounter Visit Diagnoses Not on filedocumented in this encounter Additional Health Concerns Infection Onset Date Last Indicated Resolved Time COVID-19 Rule Out 04/15/2021 04/15/2021 04/18/2021 2:12 PM LONG WALL MINING MACHINE HELPER COVID-19 Rule Out 04/18/2021 04/18/2021 04/18/2021 11:37 PM LONG WALL MINING MACHINE HELPER COVID-19 Confirmed 04/18/2021 04/18/2021 12:34 AM LONG WALL MINING MACHINE HELPER Assessment Noted Time PHQ-9 Depression Total Score: 15 019 8:04 AM CDT documented as of this encounter Care Teams Body Corporate Manager Relationship Specialty Start Date End Date Xochilt Dillard NP PCP - General NURSE PRACTITIONER 04/08/18 03/30/21 [place] [address] [address] [place], [place] [phone] PCP - General FAMILY PRACTICE 03/31/21 Levon Dalal MD [facility] [address] [place], [place] [address] [employer] Psychology Clinician INTERVENTIONAL CARDIOLOGY 05/07/18 Jennifer Manzanares MD Three [facility]. [place] [address] [place], [place] [phone] CLINICAL CARDIAC ELECTROPHYSIOLOGY 07/29/18 [place] [address] [facility] [address] [place] [address] ENDOCRINOLOGY 07/29/18 [place] [address] [address] [place], [place] [phone] FAMILY PRACTICE 03/31/21 03/31/21 documented as of this encounter
--- OUTSIDE RECORDS SUMMARY | 2024-08-14 08:35 | XMS_ITS | Encounter Summary ---
Author Organization [facility] Address [address] [place] [address] Care Team Providers Care Sales Agent Financial Report Service Name Role Phone Xochilt Dillard TRIPE FINISHER Primary Care Provider Unav ailable Levon Dalal MD Unavailable [phone] Jennifer Manzanares MD Unavailable Victorino Shahid MD Unavailable [phone] Mimi De Anda MD Unavailable [phone] Mimi De Anda MD Primary Care Provider [phone] Encounter Details Date Type Department Care Team (Late st Contact Info) Description 09/08/2020 MyChart Message Enc [facility] Family & Internal Medicine [address] [address] Xochilt Dillard, TRIPE FINISHER RE: Medication Questions Social History Tobacco Use [...] Sex Assigned at Female 04/08/2018 9:44 AM POST COMMANDER Legal Sex Female 6:17 PM CDT Gender Identity Female 04/08/2018 9:44 AM POST COMMANDER Sexual Orientation Straight 04/08/2018 9: 11 AM POST COMMANDER 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 No / Unsure 09/08/2020 3:49 PM CDT documented as of this encounter [...] documented in this encounter Progress Notes * Kateryna Rocha RN - 09/09/2020 8:58 AM CDT Please advise, contrave is the medication. documented in this encounter Plan of Treatment Upcoming Encounters Date Type Department Care Team (Late st Contact Info) Description 08/25/2024 1:00 PM CDT Office Visit [facility] Family & Internal Medicine [facility] [address] [place] [address] [place] [address] [facility] [place], [place] [id number] documented as of this encounter Visit Diagnoses Not on filedocumented in this encounter Additional Health Concerns Infection Onset Date Last Indicated Resolved Time COVID-19 Rule Out 04/15/2021 04/15/2021 04/18/2021 2:12 PM POST COMMANDER COVID-19 Rule Out 04/18/2021 04/18/2021 04/18/2021 11:37 PM POST COMMANDER COVID-19 Confirmed 04/18/2021 04/18/2021 12:34 AM POST COMMANDER Assessment Noted Time PHQ-9 Depression Total Score: 4 09/09/19 21 4:18 PM CDT documented as of this encounter Care Teams Sales Agent Financial Report Service Relationship Specialty Start Date End Date Xochilt Dillard NP PCP - General NURSE PRACTITIONER 04/08/18 03/30/21 [place] [address] [place], [place] [id number] PCP - General FAMILY PRACTICE 03/31/21 Levon Dalal MD Three [facility]. [address] [place], [place] [address] [employer] [employer] Cashier INTERVENTIONAL CARDIOLOGY 05/07/18 Jennifer Manzanares MD Three [facility] [address] [place], [place] [id number] CLINICAL CARDIAC ELECTROPHYSIOLOGY 07/29/18 [place] [address] [facility] [address] [place] [address] ENDOCRINOLOGY 07/29/18 [place] [address] [facility] [place] [address] FAMILY PRACTICE 03/31/21 03/31/21 documented as of this encounter
--- OUTSIDE RECORDS SUMMARY | 2024-08-14 08:35 | XMS_ITS | Clinical Summary ---
Author Organization [facility] Address [address] [place] [address] Care Team Providers Care General Labor Forklift Operator Name Role Phone Levon Dalal MD Unavailable Jennifer Manzanares MD Unavailable Victorino Shahid MD Unavailable [phone] Mimi De Anda MD Primary Care Provider [phone] Allergies Active Allergy Reactions Criticality Noted Date Comments Ciprofloxacin Itching Low 04/08/2018 Fenofibrate Swelling 01/06/2022 Penicillins Rash Low 04/08/2018 Statins Myalgias Low 04/08/2018 Medications magnesium oxide 400 MG tablet Take 1 tablet (400 mg total) by mouth daily. Active cetirizine 10 MG tablet Take 1 tablet (10 mg total) by mouth daily. Active calcium carb-cholecalcifer ol 600-800 MG-UNIT tablet Take 1 tablet by mouth daily. Active valACYclovir 500 MG tablet Take 1 tablet (500 mg total) by mouth daily. 1 Active fexofenadine 180 MG tablet Take 1 tablet (180 mg total) by mouth daily. Active albuterol sulfate HFA 108 (90 Base) MCG/ACT inhalerIndications :Simple chronic bronchitis (CMS/HCC HHS/HCC),Bronchosp asm Inhale 2 puffs into the lungs every 6 (six) hours as needed for Wheezing or Shortness of breath (cough). 8 g 3 Active apixaban (ELIQUIS) 5 MG tabletIndications: Paroxysmal atrial fibrillation (CMS/HCC HHS/HCC) TAKE 1 TABLET BY MOUTH 2 TIMES DAILY. 180 tablet 3 4 Active buPROPion SR 200 MG TABLET SR 12 HR 12 hr tabletIndications: Class 3 severe obesity without serious comorbidity with body mass index (BMI) of 45.0 to 49.9 in adult, unspecified obesity type Take 1 tablet by mouth 2 (two) times daily. 60 tablet 5 4 Active FLUoxetine (PROZAC) 20 MG capsuleIndications :Recurrent major depressive disorder, in remission TAKE 2 CAPSULES BY MOUTH IN THE EVENING 60 capsule 5 4 Active metFORMIN ER (GLUCOPHAGE-XR) 500 MG 24 hr tabletIndications: Hyperglycemia Take 1 tablet (500 mg total) by mouth 2 (two) times a day. 60 tablet 5 4 Active rosuvastatin (CRESTOR) 5 MG tabletIndications: Mixed hyperlipidemia Take 1 tablet (5 mg total) by mouth nightly at bedtime. 90 tablet 3 4 Active montelukast (SINGULAIR) 10 MG tabletIndications: Simple chronic bronchitis (CMS/HCC HHS/HCC) take 1 tablet by mouth everyday at bedtime 30 tablet 2 4 Active metoprolol succinate ER (TOPROL-XL) 50 MG 24 hr tablet Take 1 tablet (50 mg total) by mouth daily. PLEASE CALL OFFICE FOR APPOINTMENT. Pt needs an appt for 90 days 7 tablet 4 Active dilTIAZem ER 120 MG 24 hr capsuleIndications :Paroxysmal atrial fibrillation (CMS/HCC HHS/HCC) take 1 capsule by mouth every day 30 capsule 2 4 Active Active Problems Problem Noted Date Diagnosed Date Axillary lymphadenopathy 09/15/2021 Cervical lymphadenopathy 08/08/2021 Dyslipidemia 07/12/2021 Sleep apnea 07/12/2021 Kidney stone 05/14/2019 Thyroid nodule 01/24/2019 Overview (01/24/2019): FNA 01/21/19 THYROID, LT, FNA: 1.5 cm left nodule with irregular boarders SATISFACTORY FOR INTERPRETATION. BENIGN ADENOMATOUS NODULE. Hyperthyroidism 12/19/2018 Hyperglycemia 12/19/2018 Hypertension 11/19/2018 Hyperlipidemia 11/19/2018 Paroxysmal atrial fibrillation (CMS/HCC HHS/HCC) 08/01/2018 Graves disease 05/17/2018 Palpitations 11/02/2016 Encounters Date Type Department Care Team Description 07/25/2024 Telephone [facility] Group Family & Internal Medicine [facility] [address] [place] [address] Mimi De Anda MD Appointment Request from Last 3 Months Immunizations Immunization Administration Dates Next Due Dtap (Generic) 01/07/2021 Fluzone 6 Months+ Quad (0.5 mL Prefilled Syringe) 01/06/2022 Influenza (Generic) 01/20/2020 Influenza Adult (Generic) 01/20/2021,,01/17/2019,2017 MMR 04/29/2002,11/26/1992 PFIZER COVID-19 (ORIGINAL FORMULATION, PURPLE CAP) mRNA, LNP-S, PF, 30 MCG/0.3 ML DOSE 01/10/2022,01/06/2021,04/19/2020,2019 PFIZER COVID-19 BIVALENT (12 +) mRNA, LNP-S, PF, 30 MCG/0.3 ML DOSE 01/10/2022 Pneumococcal (Prevnar 20) 02/01/2023 Shingrix 03/28/2021,01/25/2021 Tdap (Generic) 01/07/2021 Zoster Unspecified Formulation 01/25/2021 Family History Medical History Relation Comments Diabetes Father Heart Disease Father Hyperlipidemia Father Hypertension Father Stroke Maternal Grandmother Cancer Mother Uterine Cancer Dementia Mother vascular Depression Mother Heart Attack Mother Heart Disease Mother CHF, Afib & NC Hyperlipidemia Mother Hypertension Mother Retardation/Learning Difficulties Mother Vascular Dementia Stroke Mother Thyroid Paternal Aunt graves daphne disease Paternal Uncle Heart Disease Sister 1 CHF & NC Hyperlipidemia Sister 1 Hypertension Sister 1 Thyroid Sister 1 Hyperlipidemia Sister 2 Hypertension Sister 2 Thyroid Sister 2 Breast Cancer Neg Hx Relation Status Comments Father Maternal Grandmother (Age 88) Mother (Age 82) Paternal Aunt Paternal Uncle Sister 1 Alive Sister 2 Alive Social History Tobacco Use Types Packs/Day Years Used Date Smoking Tobacco: Never Smokeless Tobacco: Never Tobacco Cessation:Counseling Given: No Alcohol Use Standard Drinks/Week Comments Not Currently [...] Sex Assigned at Female 04/08/2018 9:44 AM PRESSER MACHINE Legal Sex Female 6:17 PM CDT Gender Identity Female 04/08/2018 9:44 AM PRESSER MACHINE Sexual Orientation Straight 04/08/2018 9: 11 AM PRESSER MACHINE 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 Not on file Not on file Last Filed Vital Signs Vital Sign Reading Time Taken Comments Blood Pressure 142/82 05/24/2023 4:03 PM PRESSER MACHINE Pulse 66 05/24/2023 4:03 PM PRESSER MACHINE Temperature 36.3 C (97.4 F) 05/24/2023 4:03 PM PRESSER MACHINE Respiratory Rate 16 05/24/2023 4:03 PM PRESSER MACHINE Oxygen Saturation 98% 05/24/2023 4:03 PM PRESSER MACHINE Inhaled Oxygen Concentration - - Weight 103.4 kg (228 lb) 05/24/2023 4:03 PM PRESSER MACHINE Height 160 cm (5' 3 ) 05/24/2023 4:03 PM PRESSER MACHINE Body Mass Index 40.39 05/24/2023 4:03 PM PRESSER MACHINE Plan of Treatment Upcoming Encounters Date Type Department Care Team (Late st Contact Info) Description 08/25/2024 1:00 PM CDT Office Visit [facility] Group Family & Internal Medicine - [place] [id number] [place] [address] [place] [id number] [place] [address]. [address] [place] [address] Health Maintenance Due Date Last Done Comments Annual Physical 01/20/2021 01/21/2020 RSV Immunization or 60+ Years (1 - Risk 60-74 years 1-dose series) 2022 Mammogram Screening 09/30/2023 09/29/2021, 02/25/2019, 05/02/2018, Additional history exists COVID-19 Vaccine ( season) 2023 02/09/2023, 01/10/2022, 01/10/2022, Additional history exists PHQ-2 (Physician [place]) 04/09/2024 Colorectal Cancer Screening Colonoscopy (10 Years) 05/09/2025 Postponed from 1962 (Per Provider Recommendation) DTaP, Tdap and Td Vaccines (3 - Td or Tdap) 01/07/2031 01/07/2021, 01/07/2021 Hepatitis C Completed 11/19/2018 Zoster Vaccines Completed 03/28/2021, 01/07, 01/25/2021 Pneumococcal Vaccine: 50+ Years Completed 02/01/2023 Meningococcal B Vaccine Aged Out No l onger eligible based on patient's age to complete this topic Meningococcal Vaccine Aged Out No terence froylan eligible based on patient's age to complete this topic RSV Immunizations Under 20 Months Aged Out No longer eligible based on patient's age to complete this topic Procedures Procedure Name Priority Date/Time Associated Diagnosis Comments MG SCREENING W VENITA DIONISIO DIGI RACHEL 09/29/2021 9:04 AM CDT Encounter for screening mammogram for breast cancer HEPATITIS C ANTIBODY Routine 11/19/2018 4:26 PM CDT Basedow's disease Essential hypertension, malignant Mixed hyperlipidemia Screening for iron deficiency anemia Screening examination for poliomyelitis from Last 3 Months or Most Recently Relevant to Health Maintenance Results * MG SCREENING W VENITA DIONISIO DIGI (09/29/2021 9:04 AM CDT) Anatomical Region Laterality Modality Breast Bilateral Mammography 09/29/2021 11:5 4 AM CDT Impressions 09/29/2021 11:59 AM CDT IMPRESSION: 1. No mammographic evidence of malignancy. 2. BI-RADS Category 1 - negative. MQSA BI-RADS Categories: Category 0 - needs additional imaging evaluation. Category 1 - negative. Category 2 - benign findings. Category 3 - probably benign findings, but short interval follow-up is recommended. Category 4 - suspicious abnormality and biopsy should be considered though the lesion may well be benign. Category 5 - highly suggestive of malignancy and appropriate action should be taken. Category 6 - known biopsy-proven malignancy A) A negative report should not delay a biopsy if a dominant or clinically suspicious mass is present. B) Adenosis and dense breasts may obscure an underlying neoplasm. C) Study interpreted with computer aided detection. Ordered By: MIMI DE ANDA Interpreted By: Justin Leos, 09/29/2021 11:54 AM Narrative 09/29/2021 11:59 AM CDT IMAGING STUDIES: Bilateral screening mammograms with computer-aided detection with 2-D and 3-D imaging. Tomosynthesis. DATE: 09/29/2021 8:46 AM HISTORY: screening . Routine exam COMPARISON: 03/29/2016. 04/24/2018. TISSUE TYPE: The breast tissue is almost entirely fatty. FINDINGS: 1. Bilateral screening mammograms with computer detection with 2-D and 3-D imaging. Tomosynthesis. Fatty replaced fibroglandular tissue pattern is present. 2. No malignant microcalfcifications, new dominant masses, or architectural distortion. Minimal nodularity. 3. No skin thickening or nipple retraction. Axillary regions are suboptimally evaluated due to difficulty in patient positioning.. Mimi De Anda MD MAMMO Final Result * HEPATITIS C ANTIBODY (11/19/2018 4:26 PM CDT) HEPATITIS C AB NON-REACTI VE NON-REACTI VE 11/19/2018 8:23 PM CDT [facility] 11/19/2018 4:26 PM CDT Xochilt Dillard AUTOMOTIVE LEASING SALES REPRESENTATIVE LABORATORY Final Resul t [facility] [address] [place] [address], [place] [phone] from Last 3 Months or Most Recently Relevant to Health Maintenance Insurance [employer] Advance Directives * Full Code (Latest Code Status on File) Date Activated Date Inactivated Comments 08/01/2018 1:15 PM 08/02/2018 2:48 PM Care Teams General Labor Forklift Operator Relationship Specialty Start [place] [address] [place] [address] PCP - General FAMILY PRACTICE 03/31/21 Levon Dalal MD Three [facility]. [address] [place] [address] [place] Sustainability Officer INTERVENTIONAL CARDIOLOGY 05/07/18 Jennifer Manzanares MD Three [facility]. [address] [place], [place] [address] CLINICAL CARDIAC ELECTROPHYSIOLOGY 07/29/18 [place] [address] [facility] [address] [place] [address] ENDOCRINOLOGY 07/29/18
--- OUTSIDE RECORDS SUMMARY | 2024-08-14 08:35 | XMS_ITS | Encounter Summary ---
Author Organization [facility] Address [address] [facility] [address] [place] [address] Phone Care Team Providers Care Business Account Specialist Name Role Phone Don Wilson DO Primary Care Provider Encounter Details Date Type Department Care Team (Late st Contact Info) Description 07/16/2017 Orders Only [facility] ProviderManas MD [address] [place] [address] Social History Tobacco Use Types Packs/Day Years Used Date Smoking Tobacco: Never Comments Unknown Sex and Gender Information Value Date Recorded Sex Assigned at Not on file Legal Sex Female 9:17 AM JEWEL GAUGER Gender Identity Not on file Sexual Orientation Not on file documented as of this encounter Plan of Treatment Not on file documented as of this encounter Procedures Procedure Name Priority Date/Time Associated Diagnosis Comments DISCHARGE LABORATORY CUMULATIVE REPORT 07/16/2017 12:00 AM CDT documented in this encounter Results * DISCHARGE LABORATORY CUMULATIVE REPORT (07/16/2017 12:00 AM CDT) Narrative 07/16/2017 12:00 AM CDT Ordered by an unspecified provider. Historical Provider LAB BLOOD ORDERABLES Ruthie l Result documented in this encounter Visit Diagnoses Not on filedocumented in this encounter Care Teams Business Account Specialist Relationship Specialty Start Date End Date Don Wilson DO [address] [place] [address] PCP - General 10/19/16 documented as of this encounter
--- OUTSIDE RECORDS SUMMARY | 2024-08-14 08:35 | XMS_ITS | Clinical Summary ---
Author Organization [facility] Address [address] [place] [address] Care Team Providers Care Director Regulatory Agency Name Role Phone Don Wilson Primary Care Provider Allergies Active Allergy Reactions Criticality Noted Date Comments Penicillins Itching Reaction: ITCHING, Reaction: ITCHING Pollen Extracts Other (See comments) Reaction: OTHER REACTION, , Reaction: OTHER REACTION, Simvastatin Other (See comments) Reaction: OTHER REACTION, , Reaction: OTHER REACTION, Encounters Date Type Department Care Team Description 08/08/2024 Results Follow-Up [facility] [address] [address] (Third Floor) [place] [address] Coreen Hartman MA 08/05/2024 9:35 AM CDT Lab [facility] [address] [place] [address] Pre-employment health screening examination 08/05/2024 Orders Only [facility] [address] Room [facility] (Third Floor) [place] [address] Michael Clarke MD Physical exam, pre-employment (Primary Dx); Pre-employment health screening examination from Last 3 Months Immunizations Immunization Administration Dates Next Due Pfizer SARS-CoV-2 Monovalent Vaccination (12+ Yrs) PURPLE 04/19/2020,03/29/2020 Family History Medical History Relation Name Comments Macular degeneration Father Macular Degeneration - (Added by TW Conv) Hypertension Other Hypertension - (Added by TW Conv) Relation Name Status Comments Father Other Social History Tobacco Use Types Packs/Day Years Used Date Smoking Tobacco: Never Comments Unknown Sex and Gender Information Value Date Recorded Sex Assigned at Not on file Legal Sex Female 9:17 AM DAM WORKER Gender Identity Not on file Sexual Orientation Not on file Obstetrics History Plan of Treatment Health Maintenance Due Date Last Done Comments Cervical Cancer Screening 1962 Colon Cancer Screening-Colonoscopy 1962 Depression Screening 1962 Hepatitis C Screening 1962 Hepatitis B Screening 1980 Regular Well Visit/Exam 18-64 1980 Breast Cancer Screening-Mammogram 09/29/2022 09/29/2021, 09/29/2021, 03/21/2013 Covid-19 Vaccine ( season) 2023 02/09/2023, 01/10/2022, 01/10/2022, Additional history exists DTaP/Tdap/Td Vaccine (3 - Td or Tdap) 01/07/2031 01/07/2021, 01/07/2021 Zoster Vaccine Completed 03/28/2021, 01/25/2021 Pneumococcal vaccine <65 Aged Out 02/01/2023 No longer eligible based on patient's age to complete this topic Influenza Vaccine Completed 02/17/2024, , 01/06/2022, Additional history exists Procedures Procedure Name Priority Date/Time Associated Diagnosis Comments T-SPOT.TB Routine 08/05/2024 9:47 AM CDT Pre-employment health screening examination SCREENING MAMMOGRAM Routine 03/21/2013 8 :40 AM DAM WORKER from Last 3 Months or Most Recently Relevant to Health Maintenance Results * T-SPOT.TB Blood (08/05/2024 9:47 AM CDT) T-SPOT.TB Negative SeeBelow Comment: Normal Value: Negative [...] test. T-SPOT.TB Panel A Spot Count 0 [facility] T-SPOT.TB Panel B Spot Count 0 [facility] T-SPOT.TB Negative Control Passed [facility] T-SPOT.TB Positive Control Passed [facility] Comment: Test Performed at: [employer] TB, [facility] [address] [place] [phone] YOON BANG,PHD Blood 08/05/2024 9:47 AM CDT 08/05/2024 9:52 AM CDT Narrative [facility] - 08/07/2024 3:03 PM CDT [facility] is employed by/enrolled at:->[facility] Michael Clarke MD LAB MICROBIOLOGY - GENERAL OR DERABLES Final Result [facility] [address] [facility] Department [place] [address] * Screening Mammogram (03/21/2013 8:40 AM DAM WORKER) Anatomical Region Laterality Modality Breast N/A Mammography 03/21/2013 8:40 AM DAM WORKER Narrative 03/24/2013 10:46 AM DAM WORKER JAY LUNA M.D. FINAL REPORT ACC# Date Time Exam [id number] Mar 21, 2013 08:40:00 [facility] [address] Screening Mamm Bilat Technologist(s): Dominga Monroe; ; EXAMINATION: Mammogram Technique: Bilateral Full-Field Digital Screening Mammogram was performed. Views obtained: bilateral craniocaudal and bilateral mediolateral oblique. Computer Aided Detection was performed with [employer] 1.3 version 9.3. Mammogram Findings: There are scattered [...] M.D. FINAL REPORT ACC# Date Time Exam [id number] Mar 21, 2013 08:40:00 [facility] [address] Screening Mamm Bilat Technologist(s): Dominga Monroe; ; EXAMINATION: Mammogram Technique: Bilateral Full-Field Digital Screening Mammogram was performed. Views obtained: bilateral craniocaudal and bilateral mediolateral oblique. Computer Aided Detection was performed with [employer] 1.3 version 9.3. Mammogram Findings: There are scattered fibroglandular densities. There is no suspicious abnormality in either breast. IMPRESSION: Annual screening mammography is recommended. OVERALL FINAL ASSESSMENT: BI-RADS CATEGORY 1: Negative. Requested By: Don Wilson D.O. Dictated By: JYA LUNA M.D. on Mar 24 2013 10:46A This document has been electronically signed by: JAY LUNA M.D. on Mar 24 2013 10:46A Historical Provider MD [facility] MAMMO PROCEDURES Ruthie l Result from Last 3 Months or Most Recently Relevant to Health Maintenance Insurance [facility] * Guarantor: KALYANI OHARA Account Type Relation to Patient Date of Phone Billing Address Personal/Family [address] [place] [address] [facility] Care Teams Director Regulatory Agency Relationship Specialty Start Date End Date Don Wilson DO [address] [place] [address] PCP - General 10/19/16
--- OUTSIDE RECORDS SUMMARY | 2024-08-14 08:35 | XMS_ITS | Encounter Summary ---
Author Organization [facility] Address [address] [place] [address] Care Team Providers Care Hop Grower Name Role Phone Xochilt Dillard LABORER STORES Primary Care Provider Unav ailable Levon Dalal MD Unavailable Jennifer Manzanares MD Unavailable Victorino Shahid MD Unavailable [phone] Mimi De Anda MD Unavailable [phone] Mimi De Anda MD Primary Care Provider [phone] Encounter Details Date Type Department Care Team (Latest Contact Info) Description 01/24/2019 MyChart Message Enc [facility] Multispecialty [facility] - [place] [address] [place] [address] Rebecca Vega MD Medication Questions Social History Tobacco Use [...] Sex Assigned at Female 04/08/2018 9:44 AM MOLDING ASSOCIATE Legal Sex Female 6:17 PM CDT Gender Identity Female 04/08/2018 9:44 AM MOLDING ASSOCIATE Sexual Orientation Straight 04/08/2018 9: 11 AM MOLDING ASSOCIATE 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 [address] [place] [address] documented as of this encounter Visit Diagnoses Not on filedocumented in this encounter Additional Health Concerns Infection Onset Date Last Indicated Resolved Time COVID-19 Rule Out 04/15/2021 04/15/2021 04/18/2021 2:12 PM MOLDING ASSOCIATE COVID-19 Rule Out 04/18/2021 04/18/2021 04/18/2021 11:37 PM MOLDING ASSOCIATE COVID-19 Confirmed 04/18/2021 04/18/2021 12:34 AM MOLDING ASSOCIATE Assessment Noted Time PHQ-9 Depression Total Score: 15 019 8:04 AM CDT documented as of this encounter Care Teams Hop Grower Relationship Specialty Start Date End Date Xochilt Dillard NP PCP - General NURSE PRACTITIONER 04/08/18 03/30/21 [place] [address] [place], [place] [id number] PCP - General FAMILY PRACTICE 03/31/21 Levon Dalal MD Three [facility]. [address] [place], [place] [address] [place] Commercial Real Estate Sales Manager INTERVENTIONAL CARDIOLOGY 05/07/18 Jennifer Manzanares MD Three [facility]. [address] [place], [place] [address] CLINICAL CARDIAC ELECTROPHYSIOLOGY 07/29/18 [place] [address] [facility] [address] [place] [address] ENDOCRINOLOGY 07/29/18 [place] [address] [place], [place] [id number] FAMILY PRACTICE 03/31/21 03/31/21 documented as of this encounter
--- OUTSIDE RECORDS SUMMARY | 2024-08-14 08:35 | XMS_ITS | Encounter Summary ---
Author Organization [facility] Address [address] [place] [address] Care Team Providers Care Securities Broker Name Role Phone Levon Dalal MD Unavailable [phone] Jennifer Manzanares MD Unavailable Victorino Shahid MD Unavailable [phone] Mimi De Anda MD Primary Care Provider [phone] Encounter Details Date Type Department Care Team (Late st Contact Info) Description 01/06/2022 [employer] Message Enc [place] [facility] THREE [facility], [facility] [address] [place] [address] Levon Dalal MD Three [facility]. [facility] [address] [place] [address] Follow up Social History Tobacco Use Types [...] please move on to questions 3-9 0 01/06/2022 Education Answer Date Recorded What is the highest level of school you have completed or the highest degree you have received? 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 No / Unsure 01/06/2022 9:07 AM CDT documented as of this encounter [...] documented in this encounter Progress Notes * Colette Padilla RN - 01/06/2022 10:57 AM CDT . documented in this encounter Plan of Treatment Upcoming Encounters Date Type Department Care Team (Late st Contact Info) Description 08/25/2024 1:00 PM CDT Office Visit [facility] Medical Group Family & Internal Medicine [facility] [address] [place] [id number] [place] [address] [facility] [place], [place] [id number] documented as of this encounter Visit Diagnoses Not on filedocumented in this encounter Additional Health Concerns Assessment Noted Time PHQ-9 Depression Total Score: 0 01/07/20 22 9:20 AM CDT documented as of this encounter Care Teams Securities Broker Relationship Specialty Start [place] [address] [place], [place] [id number] PCP - General FAMILY PRACTICE 03/31/21 Levon Dalal MD [facility]. [address] [place], [place] [address] [place] Optical Lens Manufacturing Tech INTERVENTIONAL CARDIOLOGY 05/07/18 Jennifer Manzanares MD Three [facility]. [facility] [address] [place], [place] [address] CLINICAL CARDIAC ELECTROPHYSIOLOGY 07/29/18 [place] [address] [facility] [address] [place] [address] ENDOCRINOLOGY 07/29/18 documented as of this encounter
[2024-08-14 09:14] LABS: Hemoglobin 12.4 g/dL (12.0-15.0); Mean Corpuscular HGB Conc 32.6 g/dl (32-36); Mean Corpuscular Hemoglobin 31.8 pg (26-34); Mean Corpuscular Volume 97.4 fl (80-100); Mean Platelet Volume 9.2 fl (7.4-10.4); Platelet Count Result 273 k/mm3 (150-375); Red Cell Distribution Width 12.6 % (11.5-14.5); White Blood Count 8.9 K/mm3 (4.5-10.0)
[2024-08-14 09:21] LABS: Alanine Aminotransferase 32 U/L (6-35); Albumin Level 4.6 g/dL (3.5-5.1); Alkaline Phosphatase 97 U/L (38-126); Anion Gap 9 mmol/L (4-12); Aspartate Amino Transferase 29 U/L (14-36); Bilirubin,Total 0.3 mg/dL (0.2-1.3); Blood Urea Nitrogen 22 mg/dL (7-17); Calcium 9.2 mg/dL (8.4-10.2); Carbon Dioxide 28 mmol/L (22-30); Chloride 100 mmol/L (98-107); Cholesterol 283 mg/dL (0-200); Estimated Glomerular Filt Rate > 60; Glucose 109 mg/dL (65-110); HDL Direct 45 mg/dL; Sodium 137 mmol/L (137-145); Triglycerides 278 mg/dL (<150)
[2024-08-14 09:32] LABS: LDL Cholesterol Direct 169 mg/dL
[2024-08-14 09:40] LABS: Free T4 Free Thyroxine 1.19 ng/dL (0.78-2.19)
[2024-08-14 09:59] LABS: Free T3 3.58 pg/mL (2.45-5.93); Hemoglobin A1C 5.7 % (<5.7)
== END 2024-08-14 08:30 | disposition home or self-care (01) ==
LOC: ANHLAB 08:30
PROVIDERS: PCP Nurse Practitioner Family; Visit Provider Nurse Practitioner Family
DX: Z13.1 Encounter for screening for diabetes mellitus (principal); Z13.29 Encounter for screening for other suspected endocrine disorder; Z13.0 Encounter for screening for diseases of the blood and blood-forming organs and certain disorders involving the immune mechanism; Z13.220 Encounter for screening for lipoid disorders; E05.00 Thyrotoxicosis with diffuse goiter without thyrotoxic crisis or storm; E03.9 Hypothyroidism, unspecified
CPT/HCPCS: 36415; 80053; 80061; 83036; 84439; 84443; 84481; 85027

== ENCOUNTER 2025-01-05 12:35 | Emergency (ER) | payer OTHER, SELFPAY ==
--- OUTSIDE RECORDS SUMMARY | 2019-01-16 03:54 | XMS_ITS | Continuity of Care Document ---
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 Name Role Phone Yessy MAGALLANES, Savage Mendiola Allergies, Adverse Reactions, Alerts Substance Reaction Status Criticality apixaban rash(moderate)rash(moderate) Active No Information ROSUVASTATIN CALCIUM Muscular Pain(moderate) Active No Information Penicillins Itching Active No Information ciprofloxacin Itching Active No Information simvastatin Other Active No Information Medications Medication Instructions Dosage Effective Dates (start - stop) Status Comments fluoxetine 20 mg capsule TAKE ONE CAPSULE BY MOUTH EVERY EVENING - Active Flonase Allergy Relief 50 mcg/actuation nasal spray,suspension inhale 2 spray by intranasal route every day in each nostril 100 MCG - Active nystatin 100,000 unit/gram topical powder apply by topical route 2 times every day under abdominal fold - Active ketoconazole 2 % topical cream apply by topical route 2 times every day to the affected area(s) between toes and feet until resolved for 15 days. - Active Xanax 0.5 mg tablet take 1 tablet by ora l route 2 times a day prn anxiety - Active triamcinolone acetonide 0.5 % topical cream apply by topical route 2 times every day a thin layer to the affected area(s) arms and abd for no longer than 2 weeks - Active metoprolol tartrate 25 mg tablet take 1.5 tablet by oral route 2 times every day - Active Eliquis 5 mg tablet take 1 tablet by ora l route 2 times every day 5 MG - Active methimazole 5 mg tablet take 3 tablet by oral route every day 15 MG - Active diltiazem ER 240 mg capsule,extended release take 1 capsule by oral route every day 240 MG - Active Advance Directives Directive Yes / No Effective Date File Name No Information Encounters Encounter Description Practice Location Reason(s) For Visit Diagnoses Date Provider Providers Copied on Encounter [facility], [address], [place], [place], [address] , tel: [phone] [facility] No Information 9 Yessy Wan. [address] [facility], [place], [place], [address], [place]. tel:[phone] [facility], [address], [place], [place], [address] , tel: [phone] Steve No Information 8 Yessy Wan. [address] [place], [place], [address], . tel:[phone] [facility], [address], [place], [place], [address] , [place] tel: [phone] Steve Encntr screen mammogram for malignant neoplasm of breastHuman bite, subsequent encounterTinea pedis of both feet 7 Hoffman Keira. [address] [place], [place], [address]. tel:[phone] Referring Provider: Don Gant, [address] [facility], [place], [address] . tel:[phone] [facility], [address], [place], [place], [address] , [place] tel:[phone] Steve Body mass index (BMI) 35.0-35.9, adultUrinary frequencyParoxysmal a-fibOAB (overactive bladder)Depression, major, recurrent, mild 7 Hoffman Keira. [address] [place], [place], [address]. tel:[phone] Referring Provider: Don Gant, [address] [place], [address] . tel:[phone] [facility], [address], [place], [place], [address] , tel: [phone] [facility] Acute sinusitis, recurrence not specified, unspecified locationHeel spur, right 2-201 7 Hoffman Keira. [address] [place], [place], [address]. tel:[phone] Referring Provider: Don Gant, [address] [place] [address], [place], [address] . tel:[phone] [facility], [address], [place], [place], [address] , [place] tel: [phone] [facility] Candidiasis, cutaneousDepression, major, recurrent, mild Feb-2 2-201 6 Ohffman Keira. [address] [place], [place], [address]. tel:[phone] Referring Provider: Don Gant, [address] [place] [address], [place], [address] . tel:[phone] [facility], [address], [place], [place], [address] , [place] tel: [phone] [facility] Hair lossEssential (primary) hypertensionOsteoart hritis of finger of left hand 6-201 6 Hoffman Keira. [address] [place], [place], [address]. tel:[phone] Referring Provider: Don Gant, [address] [facility], [place], [address] . tel:[phone] [facility], [address], [place], [place], [address] , [place] tel: [phone] [facility] Screening-pulmonary TBEncounter for screening colonoscopyDepressio n, major, recurrent, mildOther obesity due to excess calories Nov-0 3-201 5 Hoffman Keira. [address] [place], [place], [address]. tel:[phone] Referring Provider: Don Gant [address] [facility], [place], [address] . tel:[phone] [facility], [address], [place], [place], [address] , tel: [phone] [facility] Abnormal glucoseMixed hyperlipidemiaMajor depression, recurrent Apr-2 8-201 5 Hoffman Keira. [address] [place], [place], [address]. tel:[phone] Referring Provider: Don Gant, [address] [facility], [place], [address] . tel:[phone] [facility], [address], [place], [place], [address] , [place] tel: [phone] [facility] Visit for screening mammogramMixed hyperlipidemiaMajor depression, recurrent Jun-0 3-201 5 Hoffman Keira. [address] [place], [place], [address]. tel:[phone] Referring Provider: Don Gant, [address] [facility], [place], [address] . tel:[phone] [facility], [address], [place], [place], [address] , [place] tel: [phone] Steve Benign hypertensionMixed hyperlipidemiaDepres india with anxiety Mar-3 1-201 4 Chace Daley. [address] [place], [place], [address], [place]. tel:[phone] Referring Provider: Don Gant, [address] [facility] [address], [place], [address] . tel:[phone] [facility], [address], [place], [place], [address] , [place] tel: [phone] [facility] Pityriasis rosea Sep-2 5-201 4 Hoffman Keira. [address] [place], [place], [address]. tel:[phone] Referring Provider: Don Gant, [address] [facility], [place], [address] . tel:[phone] [facility], [address], [place], [place], [address] , [place] tel: [phone] [facility] Benign hypertensionMixed hyperlipidemiaScreen ing for depressionWell woman exam with routine gynecological examAnxiety state, unspecifiedCandidias is of vulva and vaginaObesity (BMI 30-39.9) 4 Hoffman Keira. [address] [place] [address], [id number]. tel:[phone] Referring Provider: Don Gant, [address] [place] [address], [address] . tel:[phone] [facility], [address], [place], [place], [address] , [place] tel: [phone] [facility] Lumbar contusion 4 Gottuso Niurka. [address] [place] [address], [id number]. tel:[phone] Referring Provider: Don Gant, [address] [facility], [place], [address] . tel:[phone] [facility], [address], [place], [place], [address] , [place] tel: [phone] Steve BENIGN HYPERTENSIONChronic rhinitisMajor depression, recurrent 4 Hoffman Keira. [address] [place] [address], [address]. tel:[phone] Referring Provider: Don Gant, [address] [place] [address], [place], [address] . tel:[phone] [facility], [address], [place], [place], [address] , [place] tel: [phone] [facility] SinusitisMixed HyperlipidemiaHypert ension, BenignHerpes simplex with other specified complications 3 Gottuso Niurka. [address] [place] [address], [id number]. tel:[phone] Referring Provider: Don Gant, [address] [facility], [place], [address] . tel:[phone] [facility], [address], [place], [place], [address] , tel: [phone] Steve Well woman exam with routine gynecological exam 3 Hoffman Keira. [address] [place], [place], [address]. tel:[phone] Referring Provider: Don Gant, [address] [facility] [address], [place], [address] . tel:[phone] [facility], [address], [place], [place], [address] , tel: [phone] Steve Tennis elbow 3 Hoffman Keira. [address] [place] [address], [address]. tel:[phone] Referring Provider: Don Gant, [address] [place] [address], [place], [address] . tel:[phone] [facility], [address], [place], [place], [address] , tel: [phone] Steve Benign essential hypertensionAnxiety state, unspecifiedOther Malaise And Fatigue 9 3 Hoffman Keira. [facility] [place], [place], [address]. tel:[phone] Referring Provider: Don Gant, [address] [facility], [place], [address] . tel:[phone] [facility], [address], [place], [place], [address] , [place] tel: [phone] Steve Other abnormal blood chemistryBenign essential hypertensionOther abnormal blood chemistryBenign essential hypertensionMajor depression, single episodeAnxiety 8201 3 Hoffman Keira. [facility] [place], [place], [address]. tel:[phone] Referring Provider: Don Gant, [address] [place] [address] B, [place], [address] . tel:[phone] [facility], [address], [place], [place], [address] , tel: [phone] Steve Sinusitis 7 3 Gottuso Niurka. [address] [place] [address], [address]. tel:[phone] Referring Provider: Don Gant, [address] [place] [address], [address] . tel:[phone] [facility], [address], [place], [place], [address] , tel: [phone] [facility] PolymyalgiaFatigueOb esityBenign essential hypertension 2 Hoffman Keira. [address] [place] [address], [id number]. tel:[phone] Referring Provider: Don Gant, [address] [place] [address], [address] . tel:[phone] [facility], [address], [place], [place], [address] , [place] tel: [phone] [facility] Abnormal liver function testsHerpes dermatitisChronic rhinitisBenign essential hypertensionUrinary incontinence, mixed 2 Hoffman Keira. [address] [place] [address], [id number]. tel:[phone] Referring Provider: Don Gant, [address] [place] [address], [address] . tel:[phone] [facility], [address], [place], [place], [address] , [place] tel: [phone] Steve Other functional disorder of bladderMixed hyperlipidemiaBENIGN HYPERTENSION 2 Hoffman Keira. [address] [place] [address], [id number]. tel:[phone] Referring Provider: Don Gant, [address] [place] [address], [place], [address] . tel:[phone] [facility], [address], [place], [place], [address] , tel: [phone] Wilson Postmenopausal atrophic vaginitisOther functional disorder of bladderDermatographi c urticariaScreening for malignant neoplasms of the cervix 1 Hoffman Keira. [address] [place] [address], [id number]. tel:[phone] Referring Provider: Don Gant, [address] [place] [address], [place], [address] . tel:[phone] [facility], [address], [place], [place], [address] , tel: [phone] Steve Tachycardia, unspecified 1 Hoffman Keira. [address] [place] [address], [id number]. tel:[phone] Referring Provider: Don Gant, [address] [place] [address], [place], [address] . tel:[phone] [facility] [employer] [facility], [address], [place], [place], [address] , tel: [phone] Wilson PREOP EXAM UNSPCF 0 Steve Ochoa. [address] [place] [address], [place], [place], [address], . tel:[phone] [facility] [facility], [address], [place], [place], [address] , [place] tel: [phone] Wilson MALAISE AND FATIGUE NECHYPERLIPIDEMIA NEC/NOSSCREEN - OSTEOPOROSISOTH SPCF PREOP EXAM 0 Steve Ochoa. [address] [place] [address], [place], [place], [address], . tel:[phone] [facility], [address], [place], [place], [address] , [place] tel: [phone] Wilson ABDMNAL TNDR LT LWR QUAD 0 Hoffman Keira. [address] [facility], [place], [place], [address]. tel:[phone] [employer], [address], [place], [place], [address] , [place] tel: [phone] Wilson ABSENCE OF MENSTRUATIONRHINITIS DUE TO POLLENOVARIAN CYST NEC/NOSBENIGN HYPERTENSION 8 0 Wilson Don. [address] [facility], [place], [place], [address], [place]. tel:[phone] [facility], [address], [place], [place], [address] , [place] tel: [phone] Wilson DYSMENORRHEA 0 Steve Ochoa. [address] [facility], [place], [place], [address], [place]. tel:[phone] [facility], [address], [place], [place], [address] , [place] tel: [phone] Wilson BENIGN PARXYSMAL VERTIGOHYPOTHYROIDIS M NOS 9 Wilsonkenrick Ochoa. [address] [facility], [place], [place], [address], [place]. tel:[phone] [facility], [address], [place], [place], [address] , [place] tel: [phone] Wilson MIXED HYPERLIPIDEMIADISORD ERS OF UTERUS NECSCREEN MAL NEOP-CERVIXMETRORRHA MATHEW 1 9 Steve Ochoa. [address] [facility], [place], [place], [address], [place]. tel:[phone] [facility], [address], [place], [place], [address] , [place] tel:[phone] Wilson CANDIDAL VULVOVAGINITISACUTE PARAMETRITISSPRAIN HIP & THIGH NEC Jul-0 6-200 9 Hoffman Keira. [address] [facility], [place], [place], [address]. tel:[phone] [facility], [address], [place], [place], [address] , [place] tel:[phone] Wilson No Information 2 8 Dalton Crockett. [address] [facility], [place], [place], [address]. tel:[phone] [facility], [address], [place], [place], [address] , tel:[phone] Wilson LONG-TERM USE MEDS NEC 8 Steve Ochoa. [address] [place] [address], [place], [place], [address], [place]. tel:[phone] [facility], [address], [place], [place], [address] , [place] tel: [phone] Wilson ALLERGIC RHINITIS NOS 7 Dalton Crockett. [address] [facility], [place], [place], [address]. tel:[phone] [facility], [address], [place], [place], [address] , tel: [phone] Wilson PELV PERIT ENDOMETRIOSISLUMBOSA CRAL NEURITIS NOSSPRAIN LUMBAR REGIONSKIN SENSATION DISTURB 6 Steve Ochoa. [address] [place] [address], [place], [place], [address], [place]. tel:[phone] [facility], [address], [place], [place], [address] , tel:[phone] Wilson JOINT PAIN-PELVISSPRAIN OF KNEE & LEG NOSLUMBAGO 6 Steve Ochoa. [address] [place] [address], [place], [address], [place]. tel:[phone] [facility], [address], [place], [place], [address] , [place] tel:[phone] Wilson ROUTINE MEDICAL EXAMCOUGH 6 Steve Ochoa. [address] [place] [address], [place], [place], [address], . tel:[phone] Family History Family Member Type Diagnosis Age At Onset Problem (finding) Family history of Diabe clevel[place] mellitus Problem (finding) Family history of Heart disease Problem (finding) Family history of malignant neoplasm of cervix uteri Problem (finding) Family history of hyper tension Problem (finding) Family history of raise d blood lipids Payers Payer name Insurance type Covered republican ID Aamir valadez(sterling CASEY OPEN ACCESS CI [id number] Social History Type Description Quantity Date Captured Comments Sex Female Smoking Status No Information Chief Complaint And Reason For Visit No Information Reason For Referral Reason For Referral No Information History Of Present Illness Encounter Date Complaint History Of Prese nt Illness No Information Functional Status Date Functional Assessmen t No Information Instructions Date Instruction Additional Infor mation No Information Assessments Type Assessment Date No Information Patient Care Teams Name Effective Dates (start - stop) Status Members No Information
--- NOTE | ~2025-01-05 | XR_ITS ---
Examination: XR hip RT min 2V Clinical History: pain and swelling, fall Comparison: None Technique: 2 views right hip Findings/impression: 1. No fracture or dislocation right hip. 2. Mild degenerative changes right hip. Reviewed, dictated and finalized at location R.
--- NOTE | ~2025-01-05 | XR_ITS ---
EXAMINATION: XR knee RT 3V, 01/05/2025 12:45 CDT HISTORY: pain and swelling, fall COMPARISON: No comparisons available. Findings: No acute fracture or malalignment. No significant degenerative changes. Soft tissues unremarkable. Impression: No acute fracture or malalignment. Reviewed, dictated and finalized at location P. Impression: No acute fracture or malalignment.
--- OUTSIDE RECORDS SUMMARY | 2025-01-05 12:37 | XMS_ITS | Encounter Summary ---
Author Organization [facility] Address [address] [place] [address] Care Team Providers Care Intelligence Clerk Name Role Phone Xochilt Dillard CLEANER AND PRESSER Primary Care Provider Unav ailable Levon Dalal MD Unavailable [phone] Jennifer Manzanares MD Unavailable Victorino Shahid MD Unavailable [phone] Mimi De Anda MD Unavailable [phone] Mimi De Anda MD Primary Care Provider [phone] Encounter Details Date Type Department Care Team (Late st Contact Info) Description 01/22/2020 [employer] Message Enc [facility] Medical Group Family & Internal Medicine [address] [address] Xochilt Dillard, CLEANER AND PRESSER RE: Other Social History Tobacco Use Types [...] Sex Assigned at Female 04/08/2018 9:44 AM BOOKING POLICE OFFICER Legal Sex Female 6:17 PM CDT Gender Identity Female 04/08/2018 9:44 AM BOOKING POLICE OFFICER Sexual Orientation Straight 04/08/2018 9: 11 AM BOOKING POLICE OFFICER 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 Not on [...] documented in this encounter Plan of Treatment Not on file documented as of this encounter Visit Diagnoses Not on filedocumented in this encounter Additional Health Concerns Infection Onset Date Last Indicated Resolved Time COVID-19 Rule Out 04/15/2021 04/15/2021 04/18/2021 2:12 PM BOOKING POLICE OFFICER COVID-19 Rule Out 04/18/2021 04/18/2021 04/18/2021 11:37 PM BOOKING POLICE OFFICER COVID-19 Confirmed 04/18/2021 04/18/2021 2 12:34 AM BOOKING POLICE OFFICER Assessment Noted Time PHQ-9 Depression Total Score: 15 019 8:04 AM CDT documented as of this encounter Care Teams Intelligence Clerk Relationship Specialty Start Date End Date Xochilt Dillard NP PCP - General NURSE PRACTITIONER 04/08/18 03/30/21 [place] [address] [place], [place] [phone] PCP - General FAMILY PRACTICE 03/31/21 Levon Dalal MD [facility]. [facility] [address] [place], [place] [address] [place] Indigo Mixer INTERVENTIONAL CARDIOLOGY 05/07/18 Jennifer Manzanares MD [facility]. [facility] [address] [place], [place] [address] CLINICAL CARDIAC ELECTROPHYSIOLOGY 07/29/18 [place] [address] [place] [address] ENDOCRINOLOGY 07/29/18 [place] [address] [place], [place] [phone] FAMILY PRACTICE 03/31/21 03/31/21 documented as of this encounter
--- OUTSIDE RECORDS SUMMARY | 2025-01-05 12:38 | XMS_ITS | Encounter Summary ---
Author Organization [facility] Address [address] [place] [address] Care Team Providers Care Senior Revenue Accountant Name Role Phone Levon Dalal MD Unavailable [phone] Jennifer Manzanares MD Unavailable Victorino Shahid MD Unavailable [phone] Mimi De Anda MD Primary Care Provider [phone] Encounter Details Date Type Department Care Team (Late st Contact Info) Description 02/15/2023 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 [facility] [address] [place] [address] CLINICAL CARDIAC ELECTROPHYSIOLOGY 07/29/18 [place] [address] [facility] [address] [place] [address] ENDOCRINOLOGY 07/29/18 documented as of this encounter
--- OUTSIDE RECORDS SUMMARY | 2025-01-05 12:38 | XMS_ITS | Encounter Summary ---
Author Organization [facility] Address [address] [place] [address] Care Team Providers Care Spinner Cap Frame Name Role Phone Levon Dalal MD Unavailable [phone] Jennifer Manzanares MD Unavailable Victorino Shahid MD Unavailable [phone] Mimi De Anda MD Primary Care Provider [phone] Encounter Details Date Type Department Care Team (Late st Contact Info) Description 10/04/2022 MyChart Message Enc [facility] Medical Group - [facility] [address] [place] [address] [facility] Provider Air Quality Message Social History Tobacco [...] Sex Assigned at Female 04/08/2018 9:44 AM TIRE WRAPPER Legal Sex Female 6:17 PM CDT Gender Identity Female 04/08/2018 9:44 AM TIRE WRAPPER Sexual Orientation Straight 04/08/2018 9: 11 AM TIRE WRAPPER 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 [facility] [address] [place] [address] CLINICAL CARDIAC ELECTROPHYSIOLOGY 07/29/18 [place] [address] [facility] [address] [place] [address] ENDOCRINOLOGY 07/29/18 documented as of this encounter
--- OUTSIDE RECORDS SUMMARY | 2025-01-05 12:38 | XMS_ITS | Encounter Summary ---
Author Organization [facility] Address [address] [place] [address] Care Team Providers Care Glass Cleaning Machine Tender Name Role Phone Xochilt Dillard HOOP MACHINE OPERATOR Primary Care Provider Unav ailable Levon Dalal MD Unavailable [phone] Jennifer Manzanares MD Unavailable Victorino Shahid MD Unavailable [phone] Mimi De Anda MD Unavailable [phone] Mimi De Anda MD Primary Care Provider [phone] Encounter Details Date Type Department Care Team (Late st Contact Info) Description 08/22/2020 [employer] Message Enc [place] [facility], [address] [address] Ana Alcantara PA-C RE: Referral Request Social [...] Sex Assigned at Female 04/08/2018 9:44 AM TRANSPLANTER Legal Sex Female 6:17 PM CDT Gender Identity Female 04/08/2018 9:44 AM TRANSPLANTER Sexual Orientation Straight 04/08/2018 9: 11 AM TRANSPLANTER 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 [place], [place] [phone] PCP - General FAMILY PRACTICE 03/31/21 Levon Dalal MD [address] [address] [place] Knockout Machine Operator INTERVENTIONAL CARDIOLOGY 05/07/18 Jennifer Manzanares MD [address] [address] CLINICAL CARDIAC ELECTROPHYSIOLOGY 07/29/18 [place] [address] [facility] [address] [place] [address] ENDOCRINOLOGY 07/29/18 [place] [address] [place], [place] [phone] FAMILY PRACTICE 03/31/21 03/31/21 documented as of this encounter
--- OUTSIDE RECORDS SUMMARY | 2025-01-05 12:38 | XMS_ITS | Encounter Summary ---
Author Organization [facility] Address [address] [place] [address] Care Team Providers Care Shaker Tender Name Role Phone Xochilt Dillard ALIGNER TYPEWRITER Primary Care Provider Unav ailable Levon Dalal MD Unavailable [phone] Jennifer Manzanares MD Unavailable Victorino Shahid MD Unavailable [phone] Mimi De Anda MD Unavailable [phone] Mimi De Anda MD Primary Care Provider [phone] Encounter Details Date Type Department Care Team (Late st Contact Info) Description 07/29/2018 Hospital Orders Only [facility] Vending Machine [place] [address] Jennifer Manzanares MD Three [facility]. 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 [facility] [address] [place], [place] [phone] Sofia Check Clerk INTERVENTIONAL CARDIOLOGY 05/07/18 Jennifer Manzanares MD [facility]. [place] [address] [place] [address] CLINICAL CARDIAC ELECTROPHYSIOLOGY 07/29/18 [place] [address] [place] [address] ENDOCRINOLOGY 07/29/18 [place] [address] [facility] [place] [address] FAMILY PRACTICE 03/31/21 03/31/21 documented as of this encounter
--- OUTSIDE RECORDS SUMMARY | 2025-01-05 12:38 | XMS_ITS | Encounter Summary ---
Author Organization [facility] Address [address] [place] [address] Care Team Providers Care Radio Frequency Design Engineer Name Role Phone Levon Dalal MD Unavailable [phone] Jennifer Manzanares MD Unavailable Victorino Shahid MD Unavailable [phone] Mimi De Anda MD Primary Care Provider [phone] Encounter Details Date Type Department Care Team (Late st Contact Info) Description 01/06/2022 [employer] Message Enc [place] [facility] [address] [facility], [facility] [address] [place] [address] Levon Dalal MD Three [facility]. 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 [facility] [address] [place], [place] [phone] [place] Stock Sheets Cleaner Inspector INTERVENTIONAL CARDIOLOGY 05/07/18 Jennifer Manzanares MD Three [facility]. [facility] [address] [place], [place] [phone] CLINICAL CARDIAC ELECTROPHYSIOLOGY 07/29/18 [place] [address] [facility] [address] [place] [address] ENDOCRINOLOGY 07/29/18 documented as of this encounter
--- OUTSIDE RECORDS SUMMARY | 2025-01-05 12:38 | XMS_ITS | Encounter Summary ---
Author Organization [facility] Address [address] [facility] [address] [place] [address] Phone Care Team Providers Care Sports Physical Therapist Name Role Phone Don Wilson DO Primary Care Provider Encounter Details Date Type Department Care Team (Late st Contact Info) Description 03/12/2017 Orders Only [facility] ProviderManas MD [address] [place] [address] Social History Tobacco Use Types Packs/Day Years Used Date Smoking Tobacco: Never Comments Unknown Sex and Gender Information Value Date Recorded Sex Assigned at Not on file Legal Sex Female 9:17 AM SAWMILL HAND Gender Identity Not on file Sexual Orientation Not on file documented as of this encounter Plan of Treatment Not on file documented as of this encounter Procedures Procedure Name Priority Date/Time Associated Diagnosis Comments DISCHARGE LABORATORY CUMULATIVE REPORT 03/12/2017 12:00 AM SAWMILL HAND documented in this encounter Results * DISCHARGE LABORATORY CUMULATIVE REPORT (03/12/2017 12:00 AM SAWMILL HAND) Narrative 03/12/2017 12:00 AM SAWMILL HAND Ordered by an unspecified provider. Historical Provider LAB BLOOD ORDERABLES Ruthie l Result documented in this encounter Visit Diagnoses Not on filedocumented in this encounter Care Teams Sports Physical Therapist Relationship Specialty Start Date End Date Don Wilson DO [address] [place] [address] PCP - General 10/19/16 documented as of this encounter
--- OUTSIDE RECORDS SUMMARY | 2025-01-05 12:38 | XMS_ITS | Encounter Summary ---
Author Organization [facility] Address [address] [place] [address] Care Team Providers Care Hand Roller Engraver Name Role Phone Don Wilson DO Primary Care Provider Encounter Details Date Type Department Care Team (Late st Contact Info) Description 07/16/2017 [facility] [address] [place] [address] [place] [address] [facility] [address] [place] [address] Social History Tobacco Use Types Packs/Day Years Used Date Smoking Tobacco: Never Comments Unknown Sex and Gender Information Value Date Recorded Sex Assigned at Not on file Legal Sex Female 9:17 AM COLOR MAKER DYER Gender Identity Not on file Sexual Orientation Not on file documented as of this encounter Plan of Treatment Not on file documented as of this encounter Visit Diagnoses Not on filedocumented in this encounter Care Teams Hand Roller Engraver Relationship Specialty Start Date End Date Don Wilson DO [address] [facility] [place] [address] PCP - General 10/19/16 documented as of this encounter
--- OUTSIDE RECORDS SUMMARY | 2025-01-05 12:38 | XMS_ITS | Encounter Summary ---
Author Organization [facility] Address [address] [place] [address] Care Team Providers Care Writer Producer Name Role Phone Xochilt Dillard VENEER GLUE JOINTER FEEDBACK Primary Care Provider Unav ailable Levon Dalal MD Unavailable [phone] Jennifer Manzanares MD Unavailable Victorino Shahid MD Unavailable [phone] Mimi De Anda MD Unavailable [phone] Mimi De Anda MD Primary Care Provider [phone] Encounter Details Date Type Department Care Team (Late st Contact Info) Description 11/20/2018 [employer] Message Enc [facility] Medical Group Family & Internal Medicine [address] [address] Xochilt Dillard, VENEER GLUE JOINTER FEEDBACK RE: Other Social History Tobacco Use Types [...] Sex Assigned at Female 04/08/2018 9:44 AM BUTTON SEWER Legal Sex Female 6:17 PM CDT Gender Identity Female 04/08/2018 9:44 AM BUTTON SEWER Sexual Orientation Straight 04/08/2018 9: 11 AM BUTTON SEWER 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 [place], [place] [phone] PCP - General FAMILY PRACTICE 03/31/21 Levon Dalal MD Three [place]. [address] [place], [place] [phone] Darby Director Wholesale INTERVENTIONAL CARDIOLOGY 05/07/18 Jennifer Manzanares MD [facility]. [place] [address] [place], [place] [phone] CLINICAL CARDIAC ELECTROPHYSIOLOGY 07/29/18 [place] [address] [facility] [address] [place] [address] ENDOCRINOLOGY 07/29/18 [place] [address] [place], [place] [phone] FAMILY PRACTICE 03/31/21 03/31/21 documented as of this encounter
--- OUTSIDE RECORDS SUMMARY | 2025-01-05 12:38 | XMS_ITS | Encounter Summary ---
Author Organization [facility] Address [address] [place] [address] Care Team Providers Care Braille Teacher Name Role Phone Xochilt Dillard PATCH WASHER Primary Care Provider Unav ailable Levon Dalal MD Unavailable [phone] Jennifer Manzanares MD Unavailable Victorino Shahid MD Unavailable [phone] Mimi De Anda MD Unavailable [phone] Mimi De Anda MD Primary Care Provider [phone] Encounter Details Date Type Department Care Team (Late st Contact Info) Description 05/07/2019 MyChart Message Enc 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 [place], [place] [phone] PCP - General FAMILY PRACTICE 03/31/21 Levon Dalal MD [facility]. [place] [address] [place] [address] [address] [place] Spring Inspector INTERVENTIONAL CARDIOLOGY 05/07/18 Jennifer Manzanares MD [facility]. [address] [address] [place], [place] [phone] CLINICAL CARDIAC ELECTROPHYSIOLOGY 07/29/18 [place] [address] [facility] [address] [place] [address] ENDOCRINOLOGY 07/29/18 [place] [address] [address] [place], [place] [phone] FAMILY PRACTICE 03/31/21 03/31/21 documented as of this encounter
--- OUTSIDE RECORDS SUMMARY | 2025-01-05 12:38 | XMS_ITS | Clinical Summary ---
Author Organization [facility] Address [address] [place] [address] Care Team Providers Care Make Up Arranger Name Role Phone Levon Dalal MD Unavailable [phone] Jennifer Manzanares MD Unavailable Victorino Shahid MD Unavailable [phone] Maurice De Anda MD Primary Care Provider [phone] Allergies Active Allergy Reactions Criticality Noted Date [...] to 49.9 in adult, unspecified obesity type (CMS/HCC) Take 1 tablet by mouth 2 (two) [...] HHS/HCC) 08/01/2018 Graves disease 05/17/2018 Palpitations 11/02/2016 Immunizations Immunization Administration Dates Next Due Dtap [...] Mother Heart Disease Mother CHF, Afib & [place] Hyperlipidemia Mother Hypertension Mother Retardation/Learning Difficulties Mother Vascular Dementia Stroke Mother Thyroid Paternal Aunt graves daphne disease Paternal Uncle Heart Disease Sister 1 CHF & KS Hyperlipidemia Sister 1 Hypertension Sister 1 Thyroid [...] Sex Assigned at Female 04/08/2018 9:44 AM TELEPHONE ANSWERING SERVICE OPERATOR Legal Sex Female 6:17 PM CDT Gender Identity Female 04/08/2018 9:44 AM TELEPHONE ANSWERING SERVICE OPERATOR Sexual Orientation Straight 04/08/2018 9: 11 AM TELEPHONE ANSWERING SERVICE OPERATOR 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 Not on file Not on file Last Filed Vital Signs Vital Sign Reading Time Taken Comments Blood Pressure 142/82 05/24/2023 4:03 PM TELEPHONE ANSWERING SERVICE OPERATOR Pulse 66 05/24/2023 4:03 PM TELEPHONE ANSWERING SERVICE OPERATOR Temperature 36.3 C (97.4 F) 05/24/2023 4:03 PM TELEPHONE ANSWERING SERVICE OPERATOR Respiratory Rate 16 05/24/2023 4:03 PM TELEPHONE ANSWERING SERVICE OPERATOR Oxygen Saturation 98% 05/24/2023 4:03 PM TELEPHONE ANSWERING SERVICE OPERATOR Inhaled Oxygen Concentration - - Weight 103.4 kg (228 lb) 05/24/2023 4:03 PM TELEPHONE ANSWERING SERVICE OPERATOR Height 160 cm (5' 3) 05/24/2023 4:03 PM TELEPHONE ANSWERING SERVICE OPERATOR Body Mass Index 40.39 05/24/2023 4:03 PM TELEPHONE ANSWERING SERVICE OPERATOR Plan of Treatment Health Maintenance Due Date Last Done Comments Annual Physical 01/20/2021 01/21/2020 RSV Immunization or 60+ Years (1 - Risk 60-74 years 1-dose series) 2022 Mammogram Screening 09/30/2023 09/29/2021, 02/25/2019, 05/02/2018, Additional history exists PHQ-2 (Physician [place]) 04/09/2024 COVID-19 Vaccine ( season) 2024 02/09/2023, 01/10/2022, 01/10/2022, Additional history exists Colorectal Cancer Screening Colonoscopy (10 Years) 05/09/2025 [...] interpreted with computer aided detection. Ordered By: MAURICE DE ANDA Interpreted By: Justin Leos, 09/29/2021 [...] evaluated due to difficulty in patient positioning.. Maurice De Anda MD MAMMO Final Result * HEPATITIS C ANTIBODY (11/19/2018 4:26 PM CDT) HEPATITIS C AB NON-REACTI VE NON-REACTI VE 11/19/2018 8:23 PM CDT [facility] 11/19/2018 4:26 PM CDT Xochilt Dillard NP LABORATORY Final Resul t [facility] [address] [place] [address], from Last 3 Months or Most Recently Relevant to Health Maintenance Insurance R Advance Directives * Full Code (Latest Code Status on File) Date Activated Date Inactivated Comments 08/01/2018 1:15 PM 08/02/2018 2:48 PM Care Teams Make Up Arranger Relationship Specialty [place] [address] [place] [address] PCP - General FAMILY PRACTICE 03/31/21 Levon Dalal MD [facility] [address] [place] [address] [id number] Wilder Instrument Designer INTERVENTIONAL CARDIOLOGY 05/07/18 Jennifer Manzanares MD [facility]. [facility] [address] [place] [address] [id number] CLINICAL CARDIAC ELECTROPHYSIOLOGY 07/29/18 [place] [address] [facility] [address] [place] [address] ENDOCRINOLOGY 07/29/18
--- OUTSIDE RECORDS SUMMARY | 2025-01-05 12:38 | XMS_ITS | Encounter Summary ---
Author Organization [facility] Address [facility] [place] [address] Care Team Providers Care Clinical Trial Specialist Name Role Phone Levon Dalal MD Unavailable [phone] Jennifer Manzanares MD Unavailable Victorino Shahid MD Unavailable Mimi De Anda MD Primary Care Provider [phone] Encounter Details Date Type Department Care Team (Late st Contact Info) Description 09/22/2022 MyCVaxxast Message Enc [facility] Medical Group Family & Internal Medicine [facility] [address] [place] [address] [place] [id number] [place] [address]. 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 [address] [place], [place] [address] [place] Senior Water Resources Engineer INTERVENTIONAL CARDIOLOGY 05/07/18 Jennifer Manzanares MD Three [facility]. [address] [place], [place] [phone] CLINICAL CARDIAC ELECTROPHYSIOLOGY 07/29/18 [place] [address] [facility] [address] [place] [address] ENDOCRINOLOGY 07/29/18 documented as of this encounter
--- OUTSIDE RECORDS SUMMARY | 2025-01-05 12:38 | XMS_ITS | Encounter Summary ---
Author Organization [facility] Address [address] [place] [address] Care Team Providers Care Biodiesel Division Manager Name Role Phone Xochilt Dillard UNIVERSAL GRINDER TOOL Primary Care Provider Unav ailable Levon Dalal MD Unavailable [phone] Jennifer Manzanares MD Unavailable Victorino Shahid MD Unavailable [phone] Mimi De Anda MD Unavailable [phone] Mimi De Anda MD Primary Care Provider [phone] Encounter Details Date Type Department Care Team (Late st Contact Info) Description 08/31/2019 Factor 14 Message Enc [facility] [address] [place] [address] Jennifer Manzanares MD [facility] [address] [place], [place] [id number] Medication Questions Social History Tobacco Use Types [...] Sex Assigned at Female 04/08/2018 9:44 AM MARKETING OPERATIONS SPECIALIST Legal Sex Female 6:17 PM CDT Gender Identity Female 04/08/2018 9:44 AM MARKETING OPERATIONS SPECIALIST Sexual Orientation Straight 04/08/2018 9: 11 AM MARKETING OPERATIONS SPECIALIST 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 Not [...] Author Status No 08/01/2018 1:28 PM CDT Keatno Waldron RN Active documented as of this [...] Rule Out 04/15/2021 04/15/2021 04/18/2021 2:12 PM MARKETING OPERATIONS SPECIALIST COVID-19 Rule Out 04/18/2021 04/18/2021 04/18/2021 11:37 PM MARKETING OPERATIONS SPECIALIST COVID-19 Confirmed 04/18/2021 04/18/2021 12:34 AM MARKETING OPERATIONS SPECIALIST Assessment Noted Time PHQ-9 Depression Total Score: 15 019 8:04 AM CDT documented as of this encounter Care Teams Biodiesel Division Manager Relationship Specialty Start Date End Date Xochilt Dillard NP PCP - General NURSE PRACTITIONER 04/08/18 03/30/21 [place] [address] [place], [place] [id number] PCP - General FAMILY PRACTICE 03/31/21 Levon Dalal MD Three [facility]. [facility] [address] [place], [place] [address] Casanova Watermaster INTERVENTIONAL CARDIOLOGY 05/07/18 Jennifer Manzanares MD Three [facility]. [facility] [address] [place], [place] [phone] CLINICAL CARDIAC ELECTROPHYSIOLOGY 07/29/18 [place] [address] [facility] [address] [place] [address] ENDOCRINOLOGY 07/29/18 [place] [address] [place], [place] [id number] FAMILY PRACTICE 03/31/21 03/31/21 documented as of this encounter
--- OUTSIDE RECORDS SUMMARY | 2025-01-05 12:38 | XMS_ITS | Clinical Summary ---
Author Organization [facility] Address [address] [place] [address] Care Team Providers Care Bull Bucker Name Role Phone Don Wilson DO Primary [...] on file Legal Sex Female 9:17 AM RADIOGRAPHER CARDIAC CATHETERIZATION Gender Identity Not on file Sexual Orientation Not on file Obstetrics History Plan of Treatment Health Maintenance Due Date Last Done Comments Cervical Cancer Screening 1962 Colon Cancer Screening-Colonoscopy 1962 Depression Screening 1962 Hepatitis C Screening 1962 Hepatitis B Screening 1980 Regular Well Visit/Exam 18-64 1980 Breast Cancer Screening-Mammogram 09/29/2022 09/29/2021, 09/29/2021, 03/21/2013 Covid-19 Vaccine ( season) 2024 02/09/2023, 01/10/2022, 01/10/2022, Additional history exists Influenza Vaccine (#1) 2024 4, 01/25/2023, 01/06/2022, Additional history exists DTaP/Tdap/Td Vaccine (3 - Td or Tdap) 01/07/2031 01/07/2021, 01/07/2021 Zoster Vaccine Completed 03/28/2021, 01/25/2021 Pneumococcal vaccine <65 Aged Out 02/01/2023 No longer eligible based on patient's age to complete this topic Procedures Procedure Name Priority Date/Time Associated Diagnosis Comments SCREENING MAMMOGRAM Routine 03/21/2013 8 :40 AM RADIOGRAPHER CARDIAC CATHETERIZATION from Last 3 Months or Most Recently Relevant to Health Maintenance Results * Screening Mammogram (03/21/2013 8:40 AM RADIOGRAPHER CARDIAC CATHETERIZATION) Anatomical Region Laterality Modality Breast N/A Mammography 03/21/2013 8:40 AM RADIOGRAPHER CARDIAC CATHETERIZATION Narrative 03/24/2013 10:46 AM RADIOGRAPHER CARDIAC CATHETERIZATION JAY LUNA M.D. FINAL REPORT ACC# Date Time Exam [id number] Mar 21, 2013 08:40:00 [facility] [id number] Screening Mamm Bilat Technologist(s): Dominga Monroe; ; EXAMINATION: Mammogram Technique: Bilateral Full-Field Digital Screening Mammogram was performed. Views obtained: bilateral craniocaudal and bilateral mediolateral oblique. Computer Aided Detection was performed with [employer] 1.3 version 9.3. Mammogram Findings: There are [...] M.D. FINAL REPORT ACC# Date Time Exam [id number] Mar 21, 2013 08:40:00 [facility] [address] Screening Mamm Bilat Technologist(s): Dominga Monroe; ; EXAMINATION: Mammogram Technique: Bilateral Full-Field Digital Screening Mammogram was performed. Views obtained: bilateral craniocaudal and bilateral mediolateral oblique. Computer Aided Detection was performed with C[employer]il[employer].3 version 9.3. Mammogram Findings: There are scattered [...] Most Recently Relevant to Health Maintenance Insurance [employer] [facility] [employer] Address: [facility] [address] [place] [address] Care Teams Bull Bucker Relationship Specialty Start Date End Date Don Wilson DO [address] [place] [address] [facility] - General 10/19/16
--- OUTSIDE RECORDS SUMMARY | 2025-01-05 12:38 | XMS_ITS | Encounter Summary ---
Author Organization [facility] Address [address] [place] [address] Care Team Providers Care Retail Field Representative Name Role Phone Xochilt Dillard BOTTLING SUPERVISOR Primary Care Provider Unav ailable Levon Dalal MD Unavailable [phone] Jennifer Manzanares MD Unavailable Victorino Shahid MD Unavailable [phone] Mimi De Anda MD Unavailable Mimi De Anda MD Primary Care Provider [phone] Encounter Details Date Type Department Care Team (Latest Contact Info) Description 01/24/2019 MyChart Message Enc [facility] Medical Group Multispecialty Care - [place] [address] [place] [address] Rebecca Vega MD Medication Questions [...] Sex Assigned at Female 04/08/2018 9:44 AM PALM GATHERER Legal Sex Female 6:17 PM CDT Gender Identity Female 04/08/2018 9:44 AM PALM GATHERER Sexual Orientation Straight 04/08/2018 9: 11 AM PALM GATHERER 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 [place], [place] [phone] PCP - General FAMILY PRACTICE 03/31/21 Levon Dalal MD Three [facility]. [address] [place] [address] [place] Air Export Operations Agent INTERVENTIONAL CARDIOLOGY 05/07/18 Jennifer Manzanares MD Three [facility]. [address] [place], [place] [phone] CLINICAL CARDIAC ELECTROPHYSIOLOGY 07/29/18 [place] [address] [place] [address] ENDOCRINOLOGY 07/29/18 [place] [address] [place], [place] [phone] FAMILY PRACTICE 03/31/21 03/31/21 documented as of this encounter
--- OUTSIDE RECORDS SUMMARY | 2025-01-05 12:38 | XMS_ITS | Encounter Summary ---
Author Organization [facility] Address [address] [place] [address] Care Team Providers Care Business Development Intern Name Role Phone Xochilt Dillard WASHER CARCASS Primary Care Provider Unav ailable Levon Dalal MD Unavailable Jennifer Manzanares MD Unavailable Victorino Shahid MD Unavailable Mimi De Anda MD Unavailable [phone] Mimi De Anda MD Primary Care Provider [phone] Encounter Details Date Type Department Care Team (Latest Contact Info) Description 02/12/2019 MyChart Message Enc [facility] Medical Group Multispecialty Care - [place] [address] [place] [address] Rebecca Rivera MD Medication Questions [...] Sex Assigned at Female 04/08/2018 9:44 AM TUBE DISPATCHER Legal Sex Female 6:17 PM CDT Gender Identity Female 04/08/2018 9:44 AM TUBE DISPATCHER Sexual Orientation Straight 04/08/2018 9: 11 AM TUBE DISPATCHER 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 REBECCA RIVERA MD DISPATCHER documented in this encounter Plan of Treatment Not on file documented as of this encounter Visit Diagnoses Not on filedocumented in this encounter Additional Health Concerns Infection Onset Date Last Indicated Resolved Time COVID-19 Rule Out 04/15/2021 04/15/2021 04/18/2021 2:12 PM TUBE DISPATCHER COVID-19 Rule Out 04/18/2021 04/18/2021 04/18/2021 11:37 PM TUBE DISPATCHER COVID-19 Confirmed 04/18/2021 04/18/2021 12:34 AM TUBE DISPATCHER Assessment Noted Time PHQ-9 Depression Total Score: 15 019 8:04 AM CDT documented as of this encounter Care Teams Business Development Intern Relationship Specialty Start Date End Date Xochilt Dillard NP PCP - General NURSE PRACTITIONER 04/08/18 03/30/21 [place] [address] [place], [place] [phone] PCP - General FAMILY PRACTICE 03/31/21 Levon Dalal MD Three [facility]. [facility] [address] [place], [place] [address] [place] Incubator Machine Operator INTERVENTIONAL CARDIOLOGY 05/07/18 Jennifer Manzanares MD Three [facility]. [facility] [address] [place], [place] [address] CLINICAL CARDIAC ELECTROPHYSIOLOGY 07/29/18 [place] [address] [facility] [address] [place] [address] ENDOCRINOLOGY 07/29/18 [place] [address] [place] [address] FAMILY PRACTICE 03/31/21 03/31/21 documented as of this encounter
--- OUTSIDE RECORDS SUMMARY | 2025-01-05 12:38 | XMS_ITS | Encounter Summary ---
Author Organization [facility] Address [address] [place] [address] Care Team Providers Care Cnc Machine Programmer Name Role Phone Xochilt Dillard MOLDER PUNCH Primary Care Provider Unav ailable Levon Dalal MD Unavailable [phone] Jennifer Manzanares MD Unavailable Victorino Shahid MD Unavailable [phone] Mimi De Anda MD Unavailable [phone] Mimi De Anda MD Primary Care Provider [phone] Encounter Details Date Type Department Care Team (Late st Contact Info) Description 01/09/2021 Primitive Makeupt Message Enc [facility] Medical Group Family & Internal Medicine [address] [address] Xochilt Dillard, MOLDER PUNCH Other Social History Tobacco Use Types Packs/Day [...] Sex Assigned at Female 04/08/2018 9:44 AM POLICE DETENTION ATTENDANT Legal Sex Female 6:17 PM CDT Gender Identity Female 04/08/2018 9:44 AM POLICE DETENTION ATTENDANT Sexual Orientation Straight 04/08/2018 9: 11 AM POLICE DETENTION ATTENDANT 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 Not on [...] Rule Out 04/15/2021 04/15/2021 04/18/2021 2:12 PM POLICE DETENTION ATTENDANT COVID-19 Rule Out 04/18/2021 04/18/2021 04/18/2021 11:37 PM POLICE DETENTION ATTENDANT COVID-19 Confirmed 04/18/2021 04/18/2021 12:34 AM POLICE DETENTION ATTENDANT Assessment Noted Time PHQ-9 Depression Total Score: 4 09/09/19 21 4:18 PM CDT documented as of this encounter Care Teams Cnc Machine Programmer Relationship Specialty Start Date End Date Xochilt Dillard NP PCP - General NURSE PRACTITIONER 04/08/18 03/30/21 [place] [address] [place] [address] PCP - General FAMILY PRACTICE 03/31/21 Levon Dalal MD [facility] [address] [place] [address] [place] Emergency Manager INTERVENTIONAL CARDIOLOGY 05/07/18 Jennifer Manzanares MD [facility] [address] [place] [address] CLINICAL CARDIAC ELECTROPHYSIOLOGY 07/29/18 [place] [address] [facility] [address] [place] [address] ENDOCRINOLOGY 07/29/18 [place] [address] [place] [address] FAMILY PRACTICE 03/31/21 03/31/21 documented as of this encounter
--- OUTSIDE RECORDS SUMMARY | 2025-01-05 12:38 | XMS_ITS | Encounter Summary ---
Author Organization [facility] Address [address] [place] [address] Care Team Providers Care Nuclear Power Reactor Operator Name Role Phone Xochilt Dillard AGRICULTURAL ECONOMIST Primary Care Provider Unav ailable Levon Dalal MD Unavailable [phone] Jennifer Manzanares MD Unavailable Victorino Shahid MD Unavailable [phone] Mimi De Anda MD Unavailable [phone] Mimi De Anda MD Primary Care Provider [phone] Encounter Details Date Type Department Care Team (Late st Contact Info) Description 09/08/2020 MyChart Message Enc [facility] Medical Group Family & Internal Medicine [address] [address] Xochilt Dillard, AGRICULTURAL ECONOMIST RE: Medication Questions Social History Tobacco Use [...] Sex Assigned at Female 04/08/2018 9:44 AM SPOOLING OPERATOR Legal Sex Female 6:17 PM CDT Gender Identity Female 04/08/2018 9:44 AM SPOOLING OPERATOR Sexual Orientation Straight 04/08/2018 9: 11 AM SPOOLING OPERATOR 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 [place], [place] [phone] PCP - General FAMILY PRACTICE 03/31/21 Levon Dalal MD [address] [place], [place] [address] [place] Research And Development Engineer INTERVENTIONAL CARDIOLOGY 05/07/18 Jennifer Manzanares MD [facility]. [facility] [address] [place], [place] [address] CLINICAL CARDIAC ELECTROPHYSIOLOGY 07/29/18 [place] [address] [facility] [address] [place] [address] ENDOCRINOLOGY 07/29/18 [place] [address] [place], [place] [id number] FAMILY PRACTICE 03/31/21 03/31/21 documented as of this encounter
--- OUTSIDE RECORDS SUMMARY | 2025-01-05 12:38 | XMS_ITS | Encounter Summary ---
Author Organization [facility] Address [address] [place] [address] Phone Care Team Providers Care Counseling Psychologist Name Role Phone Don Wilson DO Primary Care Provider Encounter Details Date Type Department Care Team (Late st Contact Info) Description 07/16/2017 Orders Only [facility] ProviderManas MD [address] [place] [address] Social History Tobacco Use Types Packs/Day Years Used Date Smoking Tobacco: Never Comments Unknown Sex and Gender Information Value Date Recorded Sex Assigned at Not on file Legal Sex Female 9:17 AM SCHOOL PSYCHOLOGIST Gender Identity Not on file Sexual Orientation [...] on filedocumented in this encounter Care Teams Counseling Psychologist Relationship Specialty Start Date End Date Don Wilson DO [address] [place] [address] PCP - General 10/19/16 documented as of this encounter
--- OUTSIDE RECORDS SUMMARY | 2025-01-05 12:38 | XMS_ITS | Encounter Summary ---
Author Organization [facility] Address [facility] [place] [address] Care Team Providers Care Carbon Coating Machine Operator Name Role Phone Levon Dalal MD Unavailable [phone] Jennifer Manzanares MD Unavailable Victorino Shahid MD Unavailable [phone] Mimi De Anda MD Primary Care Provider [phone] Encounter Details Date Type Department Care Team (Late st Contact Info) Description 10/25/2021 MyCIs That Oddt Message Enc [facility] Medical Group Family & Internal Medicine [facility] [address] [place] [address] [place] [address] [place] [address]. 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 [address] [place], [place] [id number] [place] Vacuum Conditioner Operator INTERVENTIONAL CARDIOLOGY 05/07/18 Jennifer Manzanares MD [facility] [address] [place], [place] [phone] CLINICAL CARDIAC ELECTROPHYSIOLOGY 07/29/18 [place] [address] [facility] [address] [place] [address] ENDOCRINOLOGY 07/29/18 documented as of this encounter
--- OUTSIDE RECORDS SUMMARY | 2025-01-05 12:38 | XMS_ITS | Clinical Summary ---
Author Organization [employer] [employer] Address [address] [place] [address] Phone Care Team Providers Care Senior Case Manager Name Role Phone Don Wilson DO Primary [...] Wilson DO Referring Provider: Maria Isabel Wilson [facility] [place] [address] Other: Problem Noted Date Diagnosed Date Diffuse [...] on file Legal Sex Female 6:04 AM STAFFING SPECIALIST Gender Identity Not on file Sexual Orientation Not on file Last Filed Vital Signs Vital Sign Reading Time Taken Comments Blood Pressure 116/74 06/19/2011 10:43 AM CDT Pulse - - Temperature - - Respiratory Rate - - Oxygen Saturation - - Inhaled Oxygen Concentration - - Weight 96.6 kg (213 lb) 06/19/2011 10:43 AM CDT Height 165.1 cm (5' 5) 06/19/2011 10:43 AM CDT Body Mass Index [...] (1 of 2) 2012 INFLUENZA VACCINE (#1) 2024 01/06/2022 RSV VACCINE (60+ or ) (1 [...] BCBS BLUE ACCESS/TRUE BLUE PPO Care Teams Senior Case Manager Relationship Specialty Start Date End Date Don Wilson DO [address] [facility] [place] [address] PCP - General Family Practice 12/05/10
--- OUTSIDE RECORDS SUMMARY | 2025-01-05 12:38 | XMS_ITS | Encounter Summary ---
Author Organization [facility] Address [address] [place] [address] Care Team Providers Care Artillery Meteorological Man Name Role Phone Xochilt Dillard STRAIGHT TRUCK DRIVER Primary Care Provider Unav ailable Levon Dalal MD Unavailable [phone] Jennifer Manzanares MD Unavailable Victorino Shahid MD Unavailable [phone] Mimi De Anda MD Unavailable [phone] Mimi De Anda MD Primary Care Provider [phone] Encounter Details Date Type Department Care Team (Late st Contact Info) Description 05/13/2019 MyChart Message Enc [facility] Medical Group Diabetes and Endocrinology - [address] [address] Rebecca Vega MD Question Social [...] Sex Assigned at Female 04/08/2018 9:44 AM MEDICAL TERRITORY MANAGER Legal Sex Female 6:17 PM CDT Gender Identity Female 04/08/2018 9:44 AM MEDICAL TERRITORY MANAGER Sexual Orientation Straight 04/08/2018 9: 11 AM MEDICAL TERRITORY MANAGER 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 [place], [place] [phone] PCP - General FAMILY PRACTICE 03/31/21 Levon Dalal MD [facility]. [address] [place], [place] [phone] [employer] Boiler House Operator INTERVENTIONAL CARDIOLOGY 05/07/18 Jennifer Manzanares MD [facility]. [address] [place], [place] [phone] CLINICAL CARDIAC ELECTROPHYSIOLOGY 07/29/18 [place] [address] [facility] [address] [place] [address] ENDOCRINOLOGY 07/29/18 [place] [address] [place], [place] [phone] FAMILY PRACTICE 03/31/21 03/31/21 documented as of this encounter
--- OUTSIDE RECORDS SUMMARY | 2025-01-05 12:38 | XMS_ITS | Encounter Summary ---
Author Organization [facility] Address [address] [place] [id number] Care Team Providers Care Line Installer Trolley Name Role Phone Xochilt Dillard SCHOOL LIBRARY MEDIA SPECIALIST Primary Care Provider Unav ailable Levon Dalal MD Unavailable [phone] Jennifer Manzanares MD Unavailable Victorino Shahid MD Unavailable [phone] Mimi De Anda MD Unavailable [phone] Mimi De Anda MD Primary Care Provider [phone] Encounter Details Date Type Department Care Team (Late st Contact Info) Description 01/17/2019 MOBITRACt Message Enc [facility] Medical Group Family & Internal Medicine [address] [address] Xochilt Dillard, SCHOOL LIBRARY MEDIA SPECIALIST RE: Medication Questions Social History Tobacco Use [...] Sex Assigned at Female 04/08/2018 9:44 AM CONSULTANT INTERNSHIP Legal Sex Female 6:17 PM CDT Gender Identity Female 04/08/2018 9:44 AM CONSULTANT INTERNSHIP Sexual Orientation Straight 04/08/2018 9: 11 AM CONSULTANT INTERNSHIP 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 on file Not [...] Status No 08/01/2018 1:28 PM CDT Keaton Wadlron RN Active documented in this encounter Plan of Treatment Not on file documented as of this encounter Visit Diagnoses Not on filedocumented in this encounter Additional Health Concerns Infection Onset Date Last Indicated Resolved Time COVID-19 Rule Out 04/15/2021 04/15/2021 04/18/2021 2:12 PM CONSULTANT INTERNSHIP COVID-19 Rule Out 04/18/2021 04/18/2021 04/18/2021 11:37 PM CONSULTANT INTERNSHIP COVID-19 Confirmed 04/18/2021 04/18/2021 12:34 AM CONSULTANT INTERNSHIP Assessment Noted Time PHQ-9 Depression Total Score: 15 019 8:04 AM CDT documented as of this encounter Care Teams Line Installer Trolley Relationship Specialty Start Date End Date Xochilt Dillard NP PCP - General NURSE PRACTITIONER 04/08/18 03/30/21 [place] [address] [place], [place] [id number] PCP - General FAMILY PRACTICE 03/31/21 Levon Dalal MD [facility]. [address] [place], [place] [phone] [employer] Eyeglass Cutter INTERVENTIONAL CARDIOLOGY 05/07/18 Jennifer Manzanares MD [facility]. [address] [place], [place] [phone] CLINICAL CARDIAC ELECTROPHYSIOLOGY 07/29/18 [place] [address] [facility] [address] [place] [address] ENDOCRINOLOGY 07/29/18 [place] [address] [place], [place] [phone] FAMILY PRACTICE 03/31/21 03/31/21 documented as of this encounter
[2025-01-05 12:45] VITALS: BP 143/55; PULSE 64; RESP 16; TEMP 36.5; O2SAT 99
--- NOTE | 2025-01-05 13:31 | ED.LOWEXIN ---
HPI - Extremity Injury (Lower) General Chief Complaint: Extremity Injury, Lower Stated Complaint: Fall / RT Hip and Knee Injury Time Seen by Provider: 01/05/25 12:40 Source: patient Mode of arrival: ambulatory Limitations: no limitations History of Present Illness HPI Narrative: 64 yo F presents with pain to R knee and R hip. Pt fell 2 days ago while walking up carpeted steps. Is moving into new home. Was carrying several boxes when she fell. Denies hitting head, no LOC. Pain worse with movement and when getting up from sitting position. All systems reviewed and negative except as noted above. Related Data Home Medications ?Medication ?Instructions ?Recorded ?Confirmed ?Last Taken ?Type cholecalciferol (vitamin D3) 10 10 mcg PO DAILY 03/18/24 05/06/24 Unknown History mcg (400 unit) capsule magnesium 200 mg tablet 200 mg PO DAILY 03/18/24 05/06/24 Unknown History diltiazem HCl 120 mg 120 mg PO DAILY 05/06/24 05/06/24 Unknown History tablet,extended release 24 hr Allergies Allergy/AdvReac Type Severity Reaction Status Date / Time Penicillins Allergy Mild Rash Verified 01/05/25 12:37 [id number] Reductase AdvReac Intermediate Muscle Pain Verified 01/05/25 12:37 Inhibitor ciprofloxacin (From Cipro) AdvReac Mild Itching Verified 01/05/25 12:37 PMFSH Past Medical History Medical History (Updated 01/05/25 @ 13:13 by Ana Joshi NP) Diabetes Anxiety and depression Hypertension A-fib Hypercholesterolemia Hypertension Depression Anxiety History of thyroiditis Multinodular goiter (nontoxic) Graves disease Surgical History Surgical History (Updated 03/18/24 @ 10:27 by Inga Charlton) History of History of total hysterectomy Status post rhinoplasty History of tonsillectomy History of facial surgery History of thyroid surgery History of hysterectomy Family History Family History Mother Hypertension Heart disease Cerebrovascular accident Father Diabetes mellitus Hypertension Heart disease Sibling Hypertension Heart disease Thyroid disorder Grandparent Hypertension Heart disease Cerebrovascular accident Social History Social History (Updated 10/22/24 @ 14:07 by Dilip Mcgee) Social History: 10/20/24 very confident with medical forms. 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 There is no relevant family history pertinent to the presenting complaint. Exam Narrative: GENERAL: This is a well-nourished, well-developed patient, in no apparent distress. HEAD: normocephalic, atraumatic. EYES: PERRL. Sclera clear/white. Vision is grossly intact. EARS: External ears normal NOSE: External nose normal NECK: Neck supple, non-tender without lymphadenopathy, masses or thyromegaly. CARDIOVASCULAR: Regular rate and rhythm without murmurs, gallops, or rubs. RESPIRATORY: Clear to auscultation. Breath sounds equal bilaterally. No wheezes, rales, or rhonchi. SKIN: warm, Dry, intact with no suspicious lesions or rash, good texture and turgor. NEURO: awake, alert, and oriented to person, place and time. There were no obvious focal neurologic abnormalities. EXTREMITIES: tenderness to lateral aspect anterior R knee just above to patella. no swelling or deformity noted. normal ROM. pain R groin. normal ROM R hip. Course Course Level of Care: Express Care Visit Vital Signs Vital signs: Vital Signs Temperature 36.5 C 01/05/25 12:45 Pulse Rate 64 01/05/25 12:45 Respiratory Rate 16 01/05/25 12:45 Blood Pressure 143/55 H 01/05/25 12:45 Pulse Oximetry 99 01/05/25 12:45 Temperature 36.5 C 01/05/25 12:45 Pulse Rate 64 01/05/25 12:45 Respiratory Rate 16 01/05/25 12:45 Blood Pressure 143/55 H 01/05/25 12:45 Pulse Oximetry 99 01/05/25 12:45 Reviewed MDM - Extremity Injury (Lower) MDM Narrative Medical decision making narrative: X-ray of R hip and R knee negative for fracture. Recommend rest, ice, elevation. Will follow up with PCP if pain not improving. Differential Diagnosis Differential diagnosis: Likely fracture of hip and other (R knee strain, R groin strain) Discharge Plan Discharge Clinical Impression: Acute pain of right hip Strain of right knee Qualifiers: Encounter type: initial encounter Qualified Code(s): S86.911A - Strain of unspecified muscle(s) and tendon(s) at lower leg level, right leg, initial encounter Patient Disposition: Home Condition: Stable Instructions: Hip Pain (ED) Additional Instructions: The x-ray of your right hip and right knee was negative for fracure. Take medications as prescribed. Methocarbamol is a muscle relaxant and may make you drowsy. Do not drive while taking it. Apply ice as needed for pain. Follow up with your doctor if pain isn't improving. Patient Language: Thai Prescriptions: New naproxen 500 mg tablet 500 mg PO BID PRN (Reason: pain) Qty: 30 0RF methocarbamol 750 mg tablet 750 mg PO Q8H PRN (Reason: muscle pain/spasm) Qty: 30 0RF No Action diltiazem HCl 120 mg tablet extended release 24 hr 120 mg PO DAILY cholecalciferol (vitamin D3) 10 mcg (400 unit) capsule 10 mcg PO DAILY magnesium 200 mg tablet 200 mg PO DAILY diltiazem HCl [Tiazac] 120 mg capsule,extended release 24 hr 120 mg PO DAILY Qty: 90 0RF fluoxetine 20 mg capsule 40 mg PO DAILY Qty: 180 0RF metoprolol succinate 50 mg tablet extended release 24 hr 50 mg PO DAILY Qty: 90 0RF oxybutynin chloride 5 mg tablet extended release 24hr 5 mg PO DAILY Qty: 90 0RF Follow-up/Referrals: Ai Walls APRN [Primary Care Provider, Family Practice] Stand Alone Forms: Work/School Release IP Time of Disposition: 13:15
== END 2025-01-05 13:16 | disposition home or self-care (01) ==
PROVIDERS: Emergency Provider Nurse Practitioner Family; PCP Nurse Practitioner Family
DX: M25.551 Pain in right hip (principal); S86.911A Strain of unspecified muscle(s) and tendon(s) at lower leg level, right leg, initial encounter; W10.9XXA Fall (on) (from) unspecified stairs and steps, initial encounter; E11.9 Type 2 diabetes mellitus without complications; I10 Essential (primary) hypertension; I48.91 Unspecified atrial fibrillation; E78.00 Pure hypercholesterolemia, unspecified; E05.00 Thyrotoxicosis with diffuse goiter without thyrotoxic crisis or storm; F41.9 Anxiety disorder, unspecified; F32.A Depression, unspecified
CPT/HCPCS: 73502; 73562; 99214; G0463